=== PATIENT | female | born 1990 | race African-American/Black ===

== ENCOUNTER 2021-01-02 04:59 | Emergency (ER) | payer MEDICAID, SELFPAY ==
--- NOTE | ~2021-01-02 | CT_ITS ---
EXAMINATION: CT ABDOMEN AND PELVIS WITHOUT CONTRAST CLINICAL INFORMATION: Right flank pain COMPARISON: Renal ultrasound 04/19/2018 TECHNIQUE: Multidetector volumetric imaging was performed from the superior aspect of the liver through the pubic symphysis. Sagittal and coronal reformatted images were obtained on the technologist's workstation. No oral or intravenous contrast. This CT examination was performed using dose optimization techniques as appropriate, variously including the following: *Automated exposure control *Adjustment of mA and/or kV according to patient size (this includes techniques or standardized protocols for targeted exams where dose is matched to indication/reason for exam; i.e. extremities or head) *Use of iterative reconstruction technique DLP: 387 mGy-cm FINDINGS: LUNG BASES: The visualized lung bases are unremarkable. LIVER, GALLBLADDER, AND BILIARY TREE: The liver is normal in size, shape, and attenuation. No focal hepatic lesion or biliary ductal dilatation is present. The gallbladder is unremarkable with no evidence of radiopaque gallstones, gallbladder wall thickening, or obvious pericholecystic inflammatory changes. PANCREAS: Normal in size. Pancreatic duct within limits of normal just under 3 mm. No peripancreatic inflammatory changes. SPLEEN: Normal in size. Incidental 1 cm splenule left upper quadrant. ADRENAL GLANDS: Unremarkable. KIDNEYS AND URETERS: The kidneys are normal in size, shape, and attenuation. No hydronephrosis, hydroureter, or calculi seen. No perinephric stranding. BLADDER: Unremarkable. GASTROINTESTINAL TRACT: There is no bowel obstruction or inflammatory changes in the bowel or mesentery. There is moderate stool in the colon. The appendix is not seen with certainty. There are no inflammatory changes around the terminal ileum or cecum. No abdominal ascites or fluid collection. No pneumatosis or free air. ABDOMINAL WALL: Borderline fat-containing umbilical hernia, 1 cm. LYMPH NODES: No lymphadenopathy. VASCULAR: Prominent left gonadal vein, 0.8 cm. PELVIC VISCERA: Small amount of pelvic ascites cul-de-sac. No adnexal mass. No ovarian enlargement. OSSEOUS STRUCTURES: Bilateral L5 spondylolysis with borderline spondylolisthesis lumbosacral junction. Circumferential annulus bulging L5 disc. CT/CT abdomen pelvis wo con IMPRESSION: 1. No hydronephrosis, urinary tract calculi, or perinephric stranding. 2. No bowel obstruction or inflammatory changes in bowel. Appendix not visualized. No inflammatory changes around the terminal ileum or cecum. 3. Prominent left gonadal vein, 0.8 cm. This could be associated with pelvic congestion syndrome in the appropriate clinical setting. 4. Trace pelvic ascites. No ovarian enlargement or adnexal mass. 5. Disc bulge L5 with bilateral L5 spondylolysis and borderline spondylolisthesis.
[2021-01-02 05:31] VITALS: BP 115/63; PULSE 78; RESP 18; TEMP 36.3; O2SAT 98; BMI 24.1
[2021-01-02 05:41] LABS: Appearance Urine CLEAR; Color Urine YELLOW; Glucose Urine UA NEG (NEG); Leukocyte Esterase Urine NEG (NEG); Nitrite Urine NEG (NEG); Specific Gravity - Urine 1.025 (1.005-1.025); Urine Blood TRACE (NEG); Urine Ketones NEG (NEG); Urine Protein NEG (NEG-TRACE)
[2021-01-02 05:42] LABS: UPreg QC Valid YES; Urine Pregnancy NEGATIVE (NEGATIVE)
[2021-01-02 06:02] LABS: Bacteria Urine TRACE /LPF; Mucus Urine 3+ /LPF; RBC Urine 0-2 /HPF (0); Squamous Epithelial Cell Urine 2+ /LPF; WBC Urine 0-2 /HPF (0-4)
--- NOTE | 2021-01-02 06:40 | ED_ITS ---
HPI - Abdominal Pain General Chief Complaint: Abdominal Pain Stated Complaint: ?Kidney Stone Time Seen by Provider: 01/02/21 06:40 Source: patient Mode of arrival: ambulatory Limitations: no limitations History of Present Illness HPI narrative: patient with right flank pain, for one month told she has kidney stones on the right, yesterday she coughed and felt a pop. MD elicited complaint: abdominal pain and flank pain Pertinent past history: kidney stones Onset (ago): week(s) Pain Consistency: intermittent Location: R flank Severity: moderate Quality: cramping and sharp Radiation: R flank Migration to: RLQ Exacerbating factors: movement Relieving factors: nothing Associated symptoms: nausea Related Data Previous Rx's Medication Instructions Recorded cyclobenzaprine 10 mg PO TID #10 tab 01/02/21 naproxen [Naprosyn] 500 mg PO BID #20 tab 01/02/21 Allergies Allergy/AdvReac Type Severity Reaction Status Date / Time shrimp [SHRIMP] Allergy Unknown HIVES Unverified 03/15/20 19:34 Review of Systems Constitutional: Reports no additional constitutional complaints Eyes: Reports no additional eye complaints Denies dizziness Cardiovascular: Reports no additional cardiovascular complaints Respiratory: Reports as per HPI Gastrointestinal: Reports no additional gastrointestinal complaints Genitourinary: Reports no additional female genitourinary complaints Musculoskeletal: Reports no additional musculoskeletal complaints Skin/Breast: Denies rash Reports system reviewed and no additional complaints, except as documented, Denies dizziness and Denies Sensory deficit (Neuro) Psychiatric: Denies anxiety Physical Exam Vital Signs: Vital Signs: Last Vital Signs Temp 97.4 F 01/02/21 05:31 Pulse 62 01/02/21 07:21 Resp 16 01/02/21 07:21 BP 118/74 01/02/21 07:21 Pulse Ox 100 01/02/21 07:21 Body Mass Index 24.1 Const: General: healthy appearing Nutritional Appearance: average body habitus Orientation/consciousness: oriented to person and patient oriented x3 Limitations: no limitations HENMT: Head: Yes normal to inspection Ears: external ears normal General nose exam: Normal external nose present Mouth: Normal oral and palatal mucosa present and oropharynx normal Throat: Yes posterior oropharynx normal Eyes: General: appearance normal, both eyes and all related structures Neck: Other: supple Neck: Yes normal visual inspection Chest: Chest palpation & inspection: normal inspection of the chest Resp: Auscultation: clear to auscultation bilaterally Cardio: Jugular venous distension: no JVD Rate: regular rate Rhythm: regular rhythm Heart sounds: S1 normal heart sound present and S2 normal heart sound present GI: Inspection: Yes normal to inspection Palpation (GI): Soft to palpation, nontender and No hepatosplenomegaly present Auscultation: normal bowel sounds Back/Spine/Pelvis: Other: mild right CVAT Skin: General skin exam: no rashes or lesions noted Neuro: General: oriented to person and patient oriented x3 Cranial nerves: Yes CN's II-XII intact bilaterally Motor exam (neuro): 5/5 motor strength present throughout Sensory Exam: No Sensory deficit (Neuro) Extrem: General: Yes normal to inspection Psych: Appearance: grossly normal Course Reevaluation(s) Reevaluation #1: urine labs ar normal, no evidence of UTI, CT negative for hydro or renal colic will dc home with NSAIDS and flexeril for back pain Time: 08:27 MDM - Abdominal Pain Lab Data Result diagrams: 01/02/21 07:13 01/02/21 07:13 Labs: Lab Results 01/02/21 01/02/21 01/02/21 Range/Units 05:36 05:36 07:13 WBC 6.1 (4.8-10.8) X10*3/uL RBC 4.68 (4.20-5.50) X10*6/uL Hgb 13.3 (12.0-16.0) g/dl Hct 39.9 (37-47) % MCV 85.3 (80-98) fL MCH 28.4 (27.0-33.0) pg MCHC 33.3 (31.0-35.0) g/dl RDW 12.0 (11.0-16.0) % Plt Count 266 (160-400) X10*3/uL MPV 9.9 (9.4-12.3) fL Immature Gran % (Auto) 0.2 (0.0-0.4) % Neut % (Auto) 48.1 (45-73) % Lymph % (Auto) 32.0 (20-40) % [place] % (Auto) 10.0 (2-11) % Eos % (Auto) 9.2 H (0-4) % Baso % (Auto) 0.5 (0-2) % Lymph # (Auto) 2.0 (1.2-4.9) X10*3/uL [place] # (Auto) 0.6 (0.1-1.2) X10*3/uL Eos # (Auto) 0.6 H (0.0-0.4) X10*3/uL Baso # (Auto) 0.0 (0.0-0.2) X10*3/uL Abs Immat Gran (auto) 0.01 (0.00-0.03) X10*3/uL Absolute Neuts (auto) 2.9 (2.0-8.3) X10*3/uL Absolute Nucleated RBC 0.000 (0.0-0.012) X10*3/uL Nucleated RBC % (auto) 0.0 (0.0-0.2) /100WBC Sodium (135-145) mmol/L Potassium (3.3-5.1) mmol/L Chloride (96-108) mmol/L Carbon Dioxide (22-29) mmol/L Anion Gap (12-20) BUN (9-16) mg/dL Creatinine (0.5-1.4) mg/dL Estim Creat Clear Calc Estimated GFR Random Glucose (60-115) mg/dL Calcium (8.4-10.2) mg/dL Urine Color YELLOW Urine Appearance CLEAR Urine pH 6.0 (5.0-8.0) Ur Specific [place] 1.025 (1.005-1.025) Urine Protein NEG (NEG-TRACE) MG/DL Urine Glucose (UA) NEG (NEG) MG/DL Urine Ketones NEG (NEG) MG/DL Urine Blood TRACE (NEG) Urine Nitrite NEG (NEG) Ur Leukocyte Esterase NEG (NEG) Urine RBC 0-2 (0) /HPF Urine WBC 0-2 (0-4) /HPF Ur Squamous Epith Cells 2+ /LPF Urine Bacteria TRACE /LPF Urine Mucus 3+ /LPF Urine Test NEGATIVE (NEGATIVE) 01/02/21 Range/Units 07:13 WBC (4.8-10.8) X10*3/uL RBC (4.20-5.50) X10*6/uL Hgb (12.0-16.0) g/dl Hct (37-47) % MCV (80-98) fL MCH (27.0-33.0) pg MCHC (31.0-35.0) g/dl RDW (11.0-16.0) % Plt Count (160-400) X10*3/uL MPV (9.4-12.3) fL Immature Gran % (Auto) (0.0-0.4) % Neut % (Auto) (45-73) % Lymph % (Auto) (20-40) % [place] % (Auto) (2-11) % Eos % (Auto) (0-4) % Baso % (Auto) (0-2) % Lymph # (Auto) (1.2-4.9) X10*3/uL [place] # (Auto) (0.1-1.2) X10*3/uL Eos # (Auto) (0.0-0.4) X10*3/uL Baso # (Auto) (0.0-0.2) X10*3/uL Abs Immat Gran (auto) (0.00-0.03) X10*3/uL Absolute Neuts (auto) (2.0-8.3) X10*3/uL Absolute Nucleated RBC (0.0-0.012) X10*3/uL Nucleated RBC % (auto) (0.0-0.2) /100WBC Sodium 138 (135-145) mmol/L Potassium 4.3 (3.3-5.1) mmol/L Chloride 107 (96-108) mmol/L Carbon Dioxide 21 L (22-29) mmol/L Anion Gap 14 (12-20) BUN 11 (9-16) mg/dL Creatinine 0.69 (0.5-1.4) mg/dL Estim Creat Clear Calc 99.5 Estimated GFR > 60 Random Glucose 99 (60-115) mg/dL Calcium 9.5 (8.4-10.2) mg/dL Urine Color Urine Appearance Urine pH (5.0-8.0) Ur Specific [place] (1.005-1.025) Urine Protein (NEG-TRACE) MG/DL Urine Glucose (UA) (NEG) MG/DL Urine Ketones (NEG) MG/DL Urine Blood (NEG) Urine Nitrite (NEG) Ur Leukocyte Esterase (NEG) Urine RBC (0) /HPF Urine WBC (0-4) /HPF Ur Squamous Epith Cells /LPF Urine Bacteria /LPF Urine Mucus /LPF Urine Test (NEGATIVE) Imaging Data CT scan - abdomen: Radiologist's impression: IMPRESSION: 1. No hydronephrosis, urinary tract calculi, or perinephric stranding. 2. No bowel obstruction or inflammatory changes in bowel. Appendix not visualized. No inflammatory changes around the terminal ileum or cecum. 3. Prominent left gonadal vein, 0.8 cm. This could be associated with pelvic congestion syndrome in the appropriate clinical setting. 4. Trace pelvic ascites. No ovarian enlargement or adnexal mass. 5. Disc bulge L5 with bilateral L5 spondylolysis and borderline spondylolisthesis. Discharge Plan Discharge Clinical Impression: Back pain Qualifiers: Back pain location: low back pain Chronicity: acute Back pain laterality: right Sciatica presence: without sciatica Qualified Code(s): M54.5 - Low back pain Patient Disposition: Home, Self-Care Instructions: Acute Low Back Pain (ED) Prescriptions: New cyclobenzaprine 10 mg tablet 10 mg PO TID Qty: 10 RF: 0 naproxen [Naprosyn] 500 mg tablet 500 mg PO BID Qty: 20 RF: 0 Referrals: Nannette Weston NP [Primary Care Provider] - 1 week [facility] Social History Social History Patient Tobacco Use Status: Never used Tobacco Use of substances other than those prescribed or required for medical reasons: Yes Substance Use Type: Marijuana Advance Directives: No Advance Directives Information Provided: No Patient : No
[2021-01-02] MEDS: ondansetron HCL 4 MG/2 ML VIAL IVPUSH (07:19)
[2021-01-02] MEDS: Ketorolac Tromethamine 30 MG/ML VIAL IVPUSH (07:19)
[2021-01-02] MEDS: 0.9 % Sodium Chloride 1,000 ML 999 ML IVCONT ×2 (07:19→08:27)
[2021-01-02 07:20] LABS: MANUAL DIFF FLAG NO
[2021-01-02 07:21] VITALS: BP 118/74; PULSE 62; RESP 16; O2SAT 100
[2021-01-02 07:21] LABS: Basophils Percent Auto 0.5 % (0-2); Eosinophils Absolute Auto 0.6 X10*3/uL (0.0-0.4); Eosinophils Percent Auto 9.2 % (0-4); Hematocrit 39.9 % (37-47); Hemoglobin 13.3 g/dl (12.0-16.0); Imm Gran Abs Auto 0.01 X10*3/uL (0.00-0.03); Imm Gran Pct Auto 0.2 % (0.0-0.4); Mean Corpuscular HGB Conc 33.3 g/dl (31.0-35.0); Mean Corpuscular Hemoglobin 28.4 pg (27.0-33.0); Mean Corpuscular Volume 85.3 fL (80-98); Mean Platelet Volume 9.9 fL (9.4-12.3); Monocytes Absolute Auto 0.6 X10*3/uL (0.1-1.2); Neutrophils Absolute Auto 2.9 X10*3/uL (2.0-8.3); Neutrophils Percent Auto 48.1 % (45-73); Platelet Count 266 X10*3/uL (160-400); Red Blood Count 4.68 X10*6/uL (4.20-5.50); White Blood Count 6.1 X10*3/uL (4.8-10.8)
[2021-01-02 07:42] LABS: Anion Gap 14 (12-20); Blood Urea Nitrogen 11 mg/dL (9-16); Calcium 9.5 mg/dL (8.4-10.2); Carbon Dioxide 21 mmol/L (22-29); Chloride 107 mmol/L (96-108); Creatinine Clr Calc Pharmacy 99.5; Estimated Glomerular Filt Rate > 60; Glucose Random 99 mg/dL (60-115); Potassium 4.3 mmol/L (3.3-5.1); Sodium 138 mmol/L (135-145)
--- NOTE | 2021-01-02 08:28 | PC.NURSE ---
Pt resting quietly in bed with significant other, states decrease in pain level and appears comfortable. Second liter of NS started. Awaiting dispo
== END 2021-01-02 08:53 | disposition home or self-care (01) ==
PROVIDERS: Emergency Provider Emergency Medicine; PCP Nurse Practitioner Family
DX: M54.5 Low back pain (principal); Z87.442 Personal history of urinary calculi
CPT/HCPCS: 36415; 74176; 80048; 81001; 81025; 85025; 96361; 96374; 96375; 99284; J1885; J2405

== ENCOUNTER 2021-06-02 19:39 | Emergency (ER) | payer MEDICAID, SELFPAY ==
[2021-06-02 19:55] VITALS: BP 115/77; PULSE 110; RESP 22; TEMP 36.8; O2SAT 98; BMI 24.1
[2021-06-02 20:00] VITALS: BP 121/65; PULSE 87; RESP 20; TEMP 36.4; O2SAT 100
--- NOTE | 2021-06-02 21:37 | ED.ASTHMA ---
HPI - Asthma General Chief Complaint: Asthma Stated Complaint: Asthma Time Seen by Provider: 06/02/21 21:31 Source: patient Mode of arrival: ambulatory Limitations: no limitations History of Present Illness HPI Narrative: Patient comes to the emergency room complaining of asthma exacerbations. Patient states that her inhaler is no longer working. Patient states that she has an appointment pending with her prosthodontist/educator. Patient states that her primary care physician has her on a naproxen regimen for an intermittent lung inflammation condition. Related Data Previous Rx's Medication Instructions Recorded cyclobenzaprine 10 mg tablet 10 mg PO TID #10 tab 01/02/21 naproxen 500 mg tablet (Naprosyn) 500 mg PO BID #20 tab 01/02/21 prednisone 50 mg tablet 50 mg PO DAILY #5 tab 06/02/21 Allergies Allergy/AdvReac Type Severity Reaction Status Date / Time shrimp [SHRIMP] Allergy Unknown HIVES Unverified 03/15/20 19:34 Review of Systems Review of Systems: Constitutional : No Weight loss, No Fever, No Chills, No Night Sweats, No Fatigue, No Malaise ENT/Mouth : No Hearing loss, No Ear Pain, No Nasal Congestion, No Sinus Pain, No Hoarseness, No sore throat, No Rhinorrhea, No Swallowing Difficulty Eyes: No Eye Pain, No Swelling, No Redness, No Foreign Body, No Discharge, No Vision Changes Cardiovascular : No Chest Pain, No SOB, No Dyspnea on Exertion, No Orthopnea, No Edema, No Palpitations Respiratory : Complaining ofCough, No Sputum complaining of wheezing/dyspnea Gastrointestinal : No Nausea, No Vomiting, No Diarrhea, No Constipation, No abdominal Pain, No Hematochezia, No Melena Genitourinary : no irregular bleeding, No Dysuria, No Urinary Frequency, No Hematuria, No Urinary Incontinence, No Urgency, No Flank Pain, No Urinary Flow Changes, No Hesitancy Musculoskeletal : No joint pain, No Myalgias, No Joint Swelling Skin : No Skin Lesions, No rash Neuro : No Weakness, No Numbness, No Paresthesias, No Loss of Consciousness, No Dizziness, No Headache Psych : No Anxiety/Panic, No Depression, No SI/HI/AH/VH, No Social Issues, Heme/Lymph: No Bruising, No Bleeding,No Lymphadenopathy Endocrine : No Polyuria, No Polydipsia, No Temperature Intolerance PMFSH Past Medical History Medical History Asthma Social History Social History Alcohol intake: current Alcohol intake frequency: holidays/special occasions only Patient Tobacco Use Status: Never used Tobacco Use of substances other than those prescribed or required for medical reasons: Yes Substance Use Type: Marijuana Substance Use Frequency: Daily Advance Directives: No Advance Directives Information Provided: No Patient : No Physical Exam Vital Signs: Vital Signs: Last Vital Signs Temp 97.6 F 06/02/21 20:00 Pulse 98 06/02/21 22:04 Resp 20 06/02/21 20:00 BP 121/65 06/02/21 20:00 Pulse Ox 100 06/02/21 20:00 BMI result Body Mass Index 24.1 Const: Other: Appearance: Alert. Oriented X3. No acute distress. Well-appearing Eyes: Pupils equal, round and reactive to light. ENT: Pharynx normal. Neck: Normal inspection. Neck supple. No lymph nodes noted. No crepitus CVS: Normal heart rate and rhythm. Pulses normal. Normal S1 and S2 Respiratory: No respiratory distress. Are bilateral wheezing, good air movement, oxygen saturation 90% on room air Abdomen: Soft and nontender. No rigidity. No distention. good BS x4 Skin: Skin warm and dry. Normal skin color. Normal skin turgor. Extremities: No lower extremity edema. No Lacerations. No Rash Neuro: Oriented X 3. No motor deficit. No sensory deficit. Moving all extermities. No slurred speech. Course Course Course Narrative: After Solu-Medrol, magnesium and our long nebulization treatment, patient states that she feels much better. Patient is asymptomatic. Patient is no longer wheezing. Oxygen saturation 100% on room air. Patient states that she has enough albuterol for her admission pumps. Patient will receive 1 prescription for prednisone. Discharge Plan Discharge Clinical Impression: Asthma Qualifiers: Asthma severity: unspecified severity Asthma persistence: unspecified Asthma complication type: uncomplicated Qualified Code(s): J45.909 - Unspecified asthma, uncomplicated Patient Disposition: Home, Self-Care Instructions: Asthma (ED) Additional Instructions: Please follow-up with your primary care physician tomorrow. If you have any worsening or new symptoms, please return to the emergency room or call 911 Prescriptions: New prednisone 50 mg tablet 50 mg PO DAILY Qty: 5 RF: 0 No Action cyclobenzaprine 10 mg tablet 10 mg PO TID Qty: 10 RF: 0 naproxen [Naprosyn] 500 mg tablet 500 mg PO BID Qty: 20 RF: 0
[2021-06-02] MEDS: Magnesium Sulfate/H2O 2 GM/50 ML PIGGYBACK IV (21:45)
[2021-06-02] MEDS: methylPREDNISolone Sod Succ 125 MG/2 ML VIAL IVPUSH (21:45)
[2021-06-02] MEDS: ondansetron HCL 4 MG/2 ML VIAL IVPUSH (21:56)
--- NOTE | 2021-06-02 21:57 | PC.NURSE ---
iv inserted, pt medicated per order, rt doing updraft, vss, pt has in/ex wheezing, will continue to monitor.
[2021-06-02 22:04] VITALS: PULSE 98; O2SAT 98
[2021-06-02] MEDS: Albuterol Sulfate (0.083%) 2.5 MG/3 ML VIAL.NEB 10 MG INHALE (22:04)
[2021-06-03] VITALS: BP 122/67; PULSE 98; RESP 16; O2SAT 98
== END 2021-06-03 00:20 | disposition home or self-care (01) ==
PROVIDERS: Emergency Provider Emergency Medicine; PCP Nurse Practitioner Family
DX: J45.909 Unspecified asthma, uncomplicated (principal)
CPT/HCPCS: 94640; 94644; 96365; 96366; 96375; 99284; J2405; J2930; J3475

== ENCOUNTER 2024-04-23 22:01 | Emergency (ER) | payer OTHER, SELFPAY ==
[2024-04-23 22:05] VITALS: BP 117/80; PULSE 77; RESP 18; TEMP 36.9; O2SAT 98; BMI 20.4
--- OUTSIDE RECORDS SUMMARY | 2024-04-23 22:31 | XMS_ITS | Continuity of Care Document ---
Author Organization [facility] Address [address] [place] [address]- Care Team Providers Care Senior Marketing Manager Name Role Phone Enrico SORENSON, Nannette Tellez Primary Care Physician [phone] [place] [facility] 12/11[place]20 - 01/09/21 [facility] [address] [place] [address]- Attending Physician: Tarun BAILEY, Rajeev Hirsch Allergies, Adverse Reactions, Alerts Substance Reaction Severity Status aspirin Active Shrimp Active Immunizations Given and Recorded Vaccine Date Status Refusal Reason influenza virus vaccine, inactivated 05/16/20 Give n influenza virus vaccine, inactivated 04/11/19 Give n influenza virus vaccine, inactivated 1 05/07/18 Gi avery influenza virus vaccine, inactivated 04/22/17 Chris rded Hepatitis A Adult Vaccine 2 10/09/17 Given pneumococcal 23-valent vaccine 3 08/10/17 Given tetanus/diphtheria/pertussis, acel(Tdap) 4 05/19/17 Recorded 1Result Comment: [05/07/2018] [facility] [id number] 2Result Comment: [10/09/2017] [facility] [id number] 3Result Comment: [08/10/2017] [facility] [id number] 4Result Comment: [07/16/2017] [facility] Medications EpiPen 2-Bonifacio 0.3 mg injectable kit = 0.3 mg, Intramuscular, Once, If case of allergic emergency., # 1 each, 1 Refills, Soft Stop, 12/24/20 14:57:00 EDT, [id number], 164, cm, 12/24/20 14:35:00 EDT, Height, 58, kg, 12/11/20 5:24:00 EDT, Dry Weight Start Date: 12/24/20 Status: Ordered famotidine 40 mg oral tablet 1 tablet = 40 mg, By Mouth, Daily at bedtime, # 90 tablet, 3 Refills, Maintenance, 10/10/19 16:17:00 EDT, Tablet, [id number], 155, cm, 04/11/19 8:37:00 EDT, Height, 55.8, kg, 09/15/18 18:40:00 EDT, Dry Weight Start Date: 10/10/19 Stop Date: 10/04/20 Status: Ordered montelukast 10 mg oral tablet Refills 0, 12/05/19 13:33:00 EDT Start Date: 12/05/19 Status: Ordered ProAir HFA 90 mcg/inh inhalation aerosol with adapter 2, puffs, Inhalation, Every 6 hours, PRN, # 1 each, Refills 2, Tot. Refills 2, Maintenance, 12/01/19 13:58:00 EDT, Aerosol, Route to Pharmacy Electronically, [id number], [id number], 155, cm, 04/11/19 8:37:00 EDT, [place]... Start Date: 12/01/19 Status: Ordered triamcinolone 55 mcg/inh nasal spray 2 sprays, Nares, Both, Daily, # 10 Gm, 2 Refills, Maintenance, 12/13/20 6:09:00 EDT, [place], [id number], 2 sprays Nares, Both Daily, 164, cm, 12/07/20 18:05:00 EDT, Height, 58, kg, 12/11/20 5:24:00 EDT, Dry Weight Start Date: 12/13/20 Status: Ordered Vitamin D3 1000 intl units oral tablet 1 tablet = 1,000 International_Units, By Mouth, Daily, # 90 tablet, 3 Refills, Maintenance, 12/24/20 14:57:00 EDT, Tablet, [id number], 164, cm, 12/24/20 14:35:00 EDT, Height, 58, kg, 215:24:00 EDT, Dry Weight Start Date: 12/24/20 Status: Ordered Xyzal 5 mg oral tablet 1 tablet = 5 mg, By Mouth, Daily in PM, # 30 tablet, 5 Refills, Maintenance, 11/20/20 9:28:00 EDT, Tablet, [id number], 1 tablet By Mouth Daily in PM, 155, cm, 08/16/20 10:04:00 EST, Height Start Date: 11/20/20 Status: Ordered Problem List Condition Effective Dates Status Health Status Inform ant Adjustment disorder with anxiety(Confirmed) Active Allergies(Confirmed) Active Allergic rhinitis(Confirmed) Active Costochondritis(Confirmed) Active Patellofemoral disorder(Confirmed) Active Acid reflux(Confirmed) Active Personal history of kidney stones(Confirmed) Active Asthma, moderate(Confirmed) Active Asthma, moderate persistent( Confirmed) 1 Active Panic disorder without agoraphobia(Confirmed) Active Oral allergy syndrome(Confirmed) 2 Active Maxillary polyp of sinus(Confirmed) Active De Quervain's tenosynovitis, bilateral(Confirmed) Active Posterior tibial tendonitis(Confirmed) Active Urolithiasis(Confirmed) Active 1AINE 2uncooked apple, grimaldo Social History Social History Type Response Smoking Status Never smoker; Tobacc o user in household: No entered on: 07/16/17 Sex
--- OUTSIDE RECORDS SUMMARY | 2024-04-23 22:31 | XMS_ITS | Continuity of Care Document ---
Author Organization [facility] Address [address] [place] [address]- Care Team Providers Care Wholesale Account Manager Name Role Phone Enrico SORENSON, Nannette Tellez Primary Care Physician Encounter [facility] Date(s): 08/15/20 - 09/14/20 [facility] [address] [place], [place] [address] Attending Physician: Admtr, Todd Admitting Physician: Admtr, [id number] Referring Physician: Admtr, [id number] Allergies, Adverse Reactions, Alerts Substance Reaction Severity [...] acel(Tdap) 4 05/19/17 Recorded 1Result Comment: [05/07/2018] [facility] [id number] 2Result Comment: [10/09/2017] [facility] [id number] 3Result Comment: [08/10/2017] [facility] [id number] 4Result Comment: [07/16/2017] [facility] Medications Breo Ellipta 200 mcg-25 mcg/inh inhalation powder 0 Refills, 12/05/19 13:34:00 EDT Start Date: 12/05/19 Status: Ordered EpiPen 2-Bonifacio 0.3 mg injectable kit = 0.3 mg, Intramuscular, Once, If case of allergic emergency., # 1 each, 0 Refills, Soft Stop, 02/11/19 9:04:53 EDT Start Date: 02/11/19 Status: Ordered famotidine 40 mg oral tablet 1 tablet = 40 mg, By Mouth, Daily at bedtime, # 90 tablet, 3 Refills, Maintenance, 10/10/19 16:17:00 EDT, Tablet, [id number], 155, cm, 04/11/19 8:37:00 EDT, Height, [...] 13:58:00 EDT, Aerosol, Route to Pharmacy Electronically, [id number], [facility] #[id number], 155, cm, 04/11/19 8:37:00 EDT, [place]... Start Date: 12/01/19 Status: Ordered triamcinolone 55 mcg/inh nasal spray 2 sprays, Nares, Both, Daily, # 10 Gm, 6 Refills, Maintenance, 12/05/19 14:15:00 EDT, [place], [facility]/pharm[facility] #[id number], 2 sprays Nares, Both Daily, 155, cm, 04/11/19 8:37:00 EDT, Height, 55.8, kg, 09/15/18 18:40:00 EDT, Dry Weight Start Date: 12/05/19 Status: Ordered Vitamin D3 1000 intl units oral tablet 1 tablet = 1,000 International_Units, By Mouth, Daily, # 90 tablet, 3 Refills, Maintenance, 11/24/18 9:24:09 EDT, Tablet Start Date: 11/24/18 Status: Ordered Xyzal 5 mg oral tablet 1 tablet = 5 mg, By Mouth, Daily in PM, # 30 tablet, 5 Refills, Maintenance, 04/19/20 9:08:00 EDT, Tablet, [facility]/pharm[facility] #[id number], 1 tablet By Mouth Daily in PM, 155, cm, 04/06/20 12:20:00 EDT, Height, 55.8, kg, 09/15/18 18:40:00 EDT, Dry Weight Start Date: 04/19/20 Status: Ordered Problem List Condition Effective Dates Status Health Status Inform ant Adjustment disorder with anxiety(Confirmed) Active Allergies(Confirmed) Active Allergic rhinitis(Confirmed) Active Asthma(Confirmed) Active Costochondritis(Confirmed) Active Patellofemoral disorder(Confirmed) Active Acid reflux(Confirmed) Active Personal history of kidney stones(Confirmed) Active Panic disorder without agoraphobia(Confirmed) Active Oral allergy syndrome(Confirmed) 1 Active Maxillary polyp of sinus(Confirmed) Active De Quervain's tenosynovitis, bilateral(Confirmed) Active Posterior tibial tendonitis(Confirmed) Active 1uncooked apple, grimaldo Social History Social History Type Response Smoking Status Never smoker; Tobacc o user in household: No entered on: 07/16/17 Sex
--- OUTSIDE RECORDS SUMMARY | 2024-04-23 22:31 | XMS_ITS | Continuity of Care Document ---
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 Name Role Phone Callum Duenas DO Primary Care Physician [phone] Encounter [facility] Date(s): 09/24/23 - 10/24/23 [facility] Osvaldo Leiva Adult [address] [place] [address]- Allergies, Adverse Reactions, Alerts Substance Reaction Severity Status aspirin Active Shrimp Active Immunizations Given and Recorded Vaccine Date Status Refusal Reason influenza virus vaccine, inactivated 04/14/22 Give n influenza virus vaccine, inactivated 04/25/21 Give n influenza virus vaccine, inactivated 05/16/20 Give n influenza virus vaccine, inactivated 04/11/19 Give n influenza virus vaccine, inactivated 1 05/07/18 Gi avery influenza virus vaccine, inactivated 04/22/17 Chris rded influenza virus vaccine, inactivated 04/21/17 Chris rded SARS-CoV-2 mRNA ([id number]) vax 08/22/21 Recorded hepatitis B adult vaccine 2 02/04/21 Given Hepatitis A Adult Vaccine 3 02/04/21 Given Hepatitis A Adult Vaccine 4 10/09/17 Given SARS-CoV-2 (COVID-19) mRNA BNT-162b2 vac 01/09/21 Recorded SARS-CoV-2 (COVID-19) mRNA BNT-162b2 vac 12/19/20 Recorded pneumococcal 23-valent vaccine 5 08/10/17 Given tetanus/diphtheria/pertussis, acel(Tdap) 6 05/19/17 Recorded tetanus/diphtheria/pertussis, acel(Tdap) 04/21/17 Recorded tetanus/diphtheria/pertussis, acel(Tdap) 2/26/08 Recorded Human Papillomavirus Vaccine 04/10/08 Recorded Human Papillomavirus Vaccine 10/26/07 Recorded Human Papillomavirus Vaccine 08/24/07 Recorded Meningococcal Conjugate Vaccine 08/24/07 Recorded tetanus-diphtheria toxoids (Td) 08/26/04 Recorded Measles/Mumps/Rubella Virus Vaccine 07/25/97 Recor ded Measles/Mumps/Rubella Virus Vaccine 10/23/93 Recor ded diphtheria/tetanus/pertussis, acel(DTaP) 07/25/97 Recorded 1Result Comment: [05/07/2018] [facility] [id number] 2Result Comment: [facility]# 28121-619-98 3Result Comment: [facility]# 59825-310-59 4Result Comment: [10/09/2017] [facility] 39290-936-58 5Result Comment: [08/10/2017] [facility] 0006 [id number] 01 6Result Comment: [07/16/2017] [facility] Medications Depo-Provera Contraceptive 150 mg/mL intramuscular suspension 1 mL = 150 mg, Intramuscular, Every 3 months, bring to clinic to administer, # 1 mL, 2 Refills, Maintenance, 10/11/22 14:49:00 EDT, Suspension, [facility]/pharmacy #[id number], 164, cm, 04/16/22 9:16:00 EDT, Height, 58, kg, 12/11/20 5:24:00 EDT, Dry Weight Start Date: 10/11/22 Stop Date: 07/08/23 Status: Ordered Dupixent Pre-filled Syringe 300 mg/2 mL subcutaneous solution 0 Refills, Maintenance, 04/16/22 10:15:00 EDT, Partial fill upon patient request if the prescription is for a schedule II opioid drug. Start Date: 04/16/22 Status: Ordered EpiPen 2-Bonifacio 0.3 mg injectable kit = 0.3 mg, Intramuscular, Once, If case of allergic emergency., # 1 kit, 1 Refills, Soft Stop, 05/20/23 16:13:00 EST, [id number], 155, cm, 04/21/23 9:31:00 EDT, Height Start Date: 05/20/23 Status: Ordered famotidine 40 mg oral tablet See Instructions, TAKE 1 TABLET BY MOUTH EVERYDAY AT BEDTIME, # 90 tablet, 0 Refills, Maintenance, 06/16/23 9:19:00 EST, [facility]/pharmacy #[id number], 155, cm, 04/21/23 9:31:00 EDT, Height Start Date: 06/16/23 Status: Ordered famotidine 40 mg oral tablet 1 tablet = 40 mg, By Mouth, Daily at bedtime, # 90 tablet, 0 Refills, Maintenance, 04/14/22 14:50:00 EDT, Tablet, [facility]/pharmacy #2339, 164, cm, 04/14/22 14:05:00 EDT, Height, 58, kg, 12/11/20 5:24:00 EDT, Dry Weight Start Date: 04/14/22 Stop Date: 07/13/22 Status: Ordered levocetirizine 5 mg oral tablet 1 tablet, By Mouth, Daily in PM, # 90 tablet, 3 Refills, Maintenance, 10/17/21 14:52:00 EDT, [facility]/pharmacy #[id number], 1 tablet By Mouth Daily in PM, 164, cm, 10/17/21 14:30:00 EDT, Height, 58, kg, 12/11/20 5:24:00 EDT, Dry Weight Start Date: 10/17/21 Status: Ordered medroxyPROGESTERone 150 mg/mL intramuscular suspension = 150 mg, Intramuscular, Once, administered to left upper arm, IM, without incident lot [id number] exp 01/2024 [id number], 0 Refills, Maintenance, 01/31/22 11:17:00 EDT, Partial fill upon patient request if the prescription is for a schedule II op... Start Date: 01/31/22 Status: Ordered montelukast 10 mg oral tablet Refills 0, 12/05/19 13:33:00 EDT Start Date: 12/05/19 Status: Ordered pantoprazole 40 mg oral delayed release tablet 1 tablet = 40 mg, By Mouth, Daily, # 30 tablet, 6 Refills, Maintenance, 01/14/23 10:14:00 EDT, 155,cm, 09/02/22 17:49:00 EST, Height Start Date: 01/14/23 Status: Ordered ProAir HFA 90 mcg/inh inhalation aerosol with adapter 2, puffs, Inhalation, Every 6 hours, PRN, # 1 each, Refills 3, Tot. Refills 3, Maintenance, 10/17/21 14:52:00 EDT, Aerosol, Route to Pharmacy Electronically, [id number], [facility]/pharmacy #[id number], 164, cm, 10/17/21 14:30:00 EDT, Hei... Start Date: 10/17/21 Status: Ordered Spiriva Respimat 1.25 mcg/inh inhalation aerosol 0 Refills, Maintenance, 04/25/21 10:30:00 EDT, Partial fill upon patient request if the prescription is for a schedule II opioid drug. Start Date: 04/25/21 Status: Ordered Symbicort 160mcg/4.5mcg Inhaler Refills 0, Maintenance, 04/25/21 10:31:00 EDT Start Date: 04/25/21 Status: Ordered triamcinolone 55 mcg/inh nasal spray 2 sprays, Nares, Both, Daily, # 10 Gm, 2 Refills, Maintenance, 12/13/20 6:09:00 EDT, [place], [facility]/pharmacy #[id number], 2 sprays Nares, Both Daily, 164, cm, 12/07/20 18:05:00 EDT, Height, 58, kg, 12/11/20 5:24:00 EDT, Dry Weight Start Date: 12/13/20 Status: Ordered Ventolin 90 mcg Inhaler Inhalation, Every 6 hours, Refills 0, Maintenance, 08/28/22 10:40:00 EST Start Date: 08/28/22 Status: Ordered Vitamin D3 1000 intl units oral tablet 1 tablet = 1,000 International_Units, By Mouth, Daily, # 90 tablet, 0 Refills, Maintenance, 04/14/22 14:51:00 EDT, Tablet, [facility]/pharmacy #[id number], 164, cm, 04/14/22 14:05:00 EDT, Height, 58, kg, 215:24:00 EDT, Dry Weight Start Date: 04/14/22 Stop Date: 07/13/22 Status: Ordered Vitamin D3 50,000 intl units oral capsule 1 capsule = 1,250 mcg, By Mouth, Every week, new start 05/14/22, # 9 capsule, 0 Refills, Maintenance, 05/13/22 20:19:00 EST, Capsule, [id number], Partial fill upon patient request if the prescription is for a schedule II opioid drug., 164, cm,... Start Date: 05/13/22 Stop Date: 07/12/22 Status: Ordered Problem List Condition Confirmation Course Effective Dates Status H ealth Status Informant Adjustment disorder with anxiety Confirmed Active Allergies Confirmed Active Allergic rhinitis Confirmed Active Chest wall pain Confirmed Active Costochondritis Confirmed Active Patellofemoral disorder Confirmed Active Acid reflux Confirmed Active GERD (gastroesophageal reflux disease) Confirmed Active Personal history of kidney stones Confirmed Active Asthma, moderate persistent 1 Confirmed Active Panic disorder without agoraphobia Confirmed Active 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 De Quervain's tenosynovitis, bilateral Confirmed Active Posterior tibial tendonitis Confirmed Active Urolithiasis Confirmed Active Vitamin D deficiency Confirmed Active 1AINE 2uncooked apple, grimaldo Social History Social History Type Response Smoking Status Never smoker; Tobacc o user in household: No entered on: 07/16/17 Sex Patient Care team information Care Team Personnel Name: Callum Duenas DO Position: S Physician - Primary Care Member Role: PCP Address: Address: [address] [place] [address]- Care Team Related Persons Name: YOVANY BRICEÑO Address: home [address] [place] [id number]
--- OUTSIDE RECORDS SUMMARY | 2024-04-23 22:31 | XMS_ITS | Continuity of Care Document ---
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 Role Phone Enrico SORENSON, Nannette Tellez Primary Care Physician [phone] Encounter [facility] Date(s): 10/13/19 - 10/20/19 [facility] Adult [address] [place] [address]- [facility] Attending Physician: Not on Staff, Attending MD Allergies, Adverse Reactions, Alerts Substance Reaction Severity Status aspirin Active Shrimp Active Immunizations Given and Recorded Vaccine Date Status Refusal Reason influenza virus vaccine, inactivated 04/11/19 Give n influenza virus vaccine, inactivated 1 05/07/18 Gi avery influenza virus vaccine, inactivated 04/22/17 Chris rded Hepatitis A Adult Vaccine 2 10/09/17 Given pneumococcal 23-valent vaccine 3 08/10/17 Given tetanus/diphtheria/pertussis, acel(Tdap) 4 05/19/17 Recorded 1Result Comment: [05/07/2018] [facility] [id number] 2Result Comment: [10/09/2017] [facility] 39078-960-13 3Result Comment: [08/10/2017] [facility] 0006 [id number] 01 4Result Comment: [07/16/2017] [facility] Medications Depo-Provera Contraceptive 150 mg/mL intramuscular suspension 1 mL = 150 mg, Intramuscular, Every 3 months, Needs annual wellness visit for more refills. Pt willschedule appt today at check out. Admin 1 mL IM left deltoid, [facility] [id number], Exp 04/2021, Lot [id number] Jo. Pt tolerated well., # 1 mL,... Start Date: 07/28/19 Status: Ordered EpiPen 2-Bonifacio 0.3 mg injectable kit = 0.3 mg, Intramuscular, Once, If case of allergic emergency., # 1 each, 0 Refills, Soft Stop, 02/11/19 9:04:53 EDT Start Date: 02/11/19 Status: Ordered famotidine 40 mg oral tablet 1 tablet = 40 mg, By Mouth, Daily at bedtime, # 90 tablet, 3 Refills, Maintenance, 10/10/19 16:17:00 EDT, Tablet, [facility]/pharmacy #[id number], 155, cm, 04/11/19 8:37:00 EDT, Height, 55.8, kg, 09/15/18 18:40:00 EDT, Dry Weight Start Date: 10/10/19 Stop Date: 10/04/20 Status: Ordered metroNIDAZOLE 0.75% topical gel 1 application, Topically, Daily at bedtime, # 45 Gm, 0 Refills, Maintenance, 10/12/19 15:29:00 EDT,[place], [facility]/pharmacy #[id number], 1 application Topically Daily at bedtime,x7 days, 155, cm, 04/11/19 8:37:00 EDT, Height, 55.8, kg, 09/15/18 18:40:00 EDT, Dry... Start Date: 10/12/19 Stop Date: 10/19/19 Status: Ordered NuLYTELY with Flavor Packs oral powder for reconstitution See Instructions, as directed, # 1 each, 0 Refills, Maintenance, 12/24/18 10:59:00 EDT, as directed Start Date: 12/24/18 Status: Ordered ProAir HFA 90 mcg/inh inhalation aerosol with adapter 2, puffs, Inhalation, Every 6 hours, PRN, # 1 each, Refills 2, Tot. Refills 2, Maintenance, 11/24/18 9:10:44 EDT, Aerosol, Route to Pharmacy Electronically, [id number], [facility]/pharmacy #[id number] Start Date: 11/24/18 Status: Ordered Suprep Bowel Prep Kit oral liquid 177 mL, By Mouth, Once, Take the first 6 oz bottle the evening before colonoscopy, and the second 6oz bottle the morning of colonoscopy., # 354 mL, 0 Refills, Soft Stop, 12/28/18 8:28:19 EDT, 177 mLBy Mouth Once,Instr:Take the first 6 oz bottle the... Start Date: 12/28/18 Status: Ordered Symbicort 160mcg/4.5mcg Inhaler 2, puffs, Inhalation, 2 times a day, rinse mouth and throat after use, # 1 each, Refills 1, Tot. Refills 1, Maintenance, 11/30/18 14:03:02 EDT, Aerosol, Route to Pharmacy Electronically, [id number], [facility]/pharmacy #[id number] Start Date: 11/30/18 Status: Ordered triamcinolone 55 mcg/inh nasal spray 2 sprays, Nares, Both, Daily, # 10 Gm, 6 Refills, Maintenance, 02/21/19 13:16:11 EDT, [place], 2 sprays Nares, Both Daily Start Date: 02/21/19 Status: Ordered Vitamin D3 1000 intl units oral tablet 1 tablet = 1,000 International_Units, By Mouth, Daily, # 90 tablet, 3 Refills, Maintenance, 11/24/18 9:24:09 EDT, Tablet Start Date: 11/24/18 Status: Ordered ZyrTEC 10 mg oral tablet 1 tablet = 10 mg, By Mouth, Daily, # 90 tablet, 3 Refills, Maintenance, 07/28/19 10:09:00 EST, Tablet, [facility]/pharmacy #2339, 155, cm, 04/11/19 8:37:00 EDT, Height, 55.8, kg, 09/15/18 18:40:00 EDT, Dry Weight Start Date: 07/28/19 Status: Ordered Problem List Condition Effective Dates Status Health Status Inform ant Adjustment disorder with anxiety(Confirmed) Active Asthma(Confirmed) Active Costochondritis(Confirmed) Active Patellofemoral disorder(Confirmed) Active Acid reflux(Confirmed) Active Personal history of kidney stones(Confirmed) Active Panic disorder without agoraphobia(Confirmed) Active Maxillary polyp of sinus(Confirmed) Active De Quervain's tenosynovitis, bilateral(Confirmed) Active Posterior tibial tendonitis(Confirmed) Active Social History Social History Type Response Smoking Status Never smoker; Tobacc o user in household: No entered on: 07/16/17 Sex
--- OUTSIDE RECORDS SUMMARY | 2024-04-23 22:31 | XMS_ITS | Continuity of Care Document ---
Author Organization [facility] Address [address] [place] [address]- Care Team Providers Care Meeting Planner Name Role Phone Enrico SORENSON, Nannette Primary Care Physician [phone] Encounter [facility] Date(s): 01/29/22 - 05/04/22 [facility] [address] [place] [address]- Attending Physician: Nannette Weston NP Allergies, Adverse Reactions, Alerts Substance Reaction Severity [...] influenza virus vaccine, inactivated 04/22/17 Chris rded hepatitis B adult vaccine 2 02/04/21 Given Hepatitis A Adult Vaccine 3 02/04/21 Given Hepatitis A Adult Vaccine 4 10/09/17 Given pneumococcal 23-valent vaccine 5 08/10/17 Given tetanus/diphtheria/pertussis, acel(Tdap) 6 05/19/17 Recorded 1Result Comment: [05/07/2018] [facility][note 2] [id number] 2Result Comment: [facility]# 30264-915-54 3Result Comment: [facility]# 16607-354-77 4Result Comment: [10/09/2017] [facility] [id number] 5Result Comment: [08/10/2017] [facility][note 2] 0006 [id number] 01 6Result Comment: [07/16/2017] [facility] Medications Depo-Provera Contraceptive = 150 mg, Intramuscular, Once, Right Deltoid, 0 Refills, Maintenance, 10/30/21 10:51:00 EDT, Partial fill upon patient request if the prescription is for a schedule II opioid drug. Start Date: 10/30/21 Status: Ordered Depo-Provera Contraceptive 150 mg/mL intramuscular suspension 1 mL = 150 mg, Intramuscular, Every 3 months, for 90 days, bring to clinic to administer, # 1 mL, 0Refills, Hard Stop 10/11/22 14:49:00 EDT, 07/13/22 14:49:00 EST, Suspension Start Date: 07/13/22 Stop Date: 10/11/22 Status: Ordered Depo-Provera Contraceptive 150 mg/mL intramuscular suspension 1 mL = 150 mg, Intramuscular, Every 3 months, bring to clinic to administer, # 1 mL, 2 Refills, Maintenance, 10/11/22 14:49:00 EDT, Suspension, [facility]/pharmacy #2339, 164, cm, 04/16/22 9:16:00 EDT, Height, 58, kg, 12/11/20 5:24:00 EDT, Dry Weight Start Date: 10/11/22 Stop Date: 07/08/23 Status: Ordered Depo-Provera Contraceptive 150 mg/mL intramuscular suspension 1 mL = 150 mg, Intramuscular, Every 3 months, for 90 days, please fill , bring to clinic to administer, # 1 mL, 0 Refills, Hard Stop 07/13/22 14:49:00 EST, 04/14/22 14:49:00 EDT, Suspension, [facility]/pharmacy #2339, 164, cm, 04/14/22 14:05:00 EDT, Height,... Start Date: 04/14/22 Stop Date: 07/13/22 Status: Ordered Dupixent Pre-filled Syringe 300 mg/2 mL subcutaneous solution 0 Refills, Maintenance, 04/16/22 10:15:00 EDT, Partial fill upon patient request if the prescription is for a schedule II opioid drug. Start Date: 04/16/22 Status: Ordered EpiPen 2-Bonifacio 0.3 mg injectable kit = 0.3 mg, Intramuscular, Once, If case of allergic emergency., # 1 each, 1 Refills, Soft Stop, 10/17/21 14:53:00 EDT, [facility]/pharmacy #2339, 164, cm, 10/17/21 14:30:00 EDT, Height, 58, kg, 12/11/20 5:24:00 EDT, Dry Weight Start Date: 10/17/21 Status: Ordered famotidine 40 mg oral tablet 1 tablet = 40 mg, By Mouth, Daily at bedtime, # 90 tablet, 0 Refills, Maintenance, 04/14/22 14:50:00 EDT, Tablet, [facility]/pharmacy #2339, 164, cm, 04/14/22 14:05:00 EDT, Height, 58, kg, 12/11/20 5:24:00 EDT, Dry Weight Start Date: 04/14/22 Stop Date: 07/13/22 Status: Ordered levocetirizine 5 mg oral tablet 1 tablet, By Mouth, Daily in PM, # 90 tablet, 3 Refills, Maintenance, 10/17/21 14:52:00 EDT, [facility]/pharmacy #2339, 1 tablet By Mouth Daily in PM, 164, cm, 10/17/21 14:30:00 EDT, Height, 58, kg, 12/11/20 5:24:00 EDT, Dry Weight Start Date: 10/17/21 Status: Ordered medroxyPROGESTERone 150 mg/mL intramuscular suspension 1 mL = 150 mg, Intramuscular, Every 3 months, given 04/16/2022 1 ml Right deltoid, # 1 mL, 0 Refills, Maintenance, 04/16/22 10:22:00 EDT, Suspension, Partial fill upon patient request if the prescription is for a schedule II opioid drug. Start Date: 04/16/22 Status: Ordered medroxyPROGESTERone 150 mg/mL intramuscular suspension = 150 mg, Intramuscular, Once, administered to right upper arm without incident, 0 Refills, Maintenance, 07/29/21 11:11:00 EST, Partial fill upon patient request if the prescription is for a scheduleII opioid drug. Start Date: 07/29/21 Stop Date: 10/27/21 Status: Ordered medroxyPROGESTERone 150 mg/mL intramuscular suspension = 150 mg, Intramuscular, Once, administered to left upper arm, IM, without incident lot [id number] exp 01/2024 [id number], 0 Refills, Maintenance, 01/31/22 11:17:00 EDT, Partial [...] 14:52:00 EDT, Aerosol, Route to Pharmacy Electronically, [id number], [facility]/pharmacy #2339, 164, cm, 10/17/21 14:30:00 EDT, [...] Gm, 2 Refills, Maintenance, 12/13/20 6:09:00 EDT, [place], [facility]/pharmacy #2339, 2 sprays Nares, Both Daily, 164, cm, 12/07/20 18:05:00 EDT, Height, 58, kg, 12/11/20 5:24:00 EDT, Dry Weight Start Date: 12/13/20 Status: Ordered Vitamin D3 1000 intl units oral tablet 1 tablet = 1,000 International_Units, By Mouth, Daily, # 90 tablet, 0 Refills, Maintenance, 04/14/22 14:51:00 EDT, Tablet, [facility]/pharmacy #2339, 164, cm, 04/14/22 14:05:00 EDT, Height, 58, kg, 06/15/215:24:00 EDT, Dry Weight Start Date: 04/14/22 Stop Date: 07/13/22 Status: Ordered Problem List Condition Confirmation Course Effective Dates Status H ealth Status Informant Adjustment disorder with anxiety Confirmed Active Allergies Confirmed Active Allergic rhinitis Confirmed Active Costochondritis Confirmed Active Patellofemoral disorder [...] on: 07/16/17 Sex Patient Care team information Personnel Name: Nannette Weston NP Address: Address: [address] [place] [address]
--- OUTSIDE RECORDS SUMMARY | 2024-04-23 22:31 | XMS_ITS | Continuity of Care Document ---
Author Organization 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 Adult [address] [place] [address]- Attending Physician: Teto BAILEY, Anthony Noyola Allergies, Adverse Reactions, Alerts Substance Reaction Severity [...] acel(Tdap) 4 05/19/17 Recorded 1Result Comment: [05/07/2018] [facility] [id number] 2Result Comment: [10/09/2017] [facility] [id number] 3Result Comment: [08/10/2017] [facility] 0006 [id number] 01 4Result Comment: [07/16/2017] [facility] Medications Breo Ellipta 200 mcg-25 mcg/inh inhalation [...] 3 Refills, Maintenance, 10/10/19 16:17:00 EDT, Tablet, [facility]/pharmacy #2339, 155, cm, 04/11/19 8:37:00 EDT, Height, [...] 13:58:00 EDT, Aerosol, Route to Pharmacy Electronically, [id number], [facility]/pharmacy #2339, 155, cm, 04/11/19 8:37:00 EDT, [place]... Start Date: 12/01/19 Status: Ordered triamcinolone 55 mcg/inh nasal spray 2 sprays, Nares, Both, Daily, # 10 Gm, 6 Refills, Maintenance, 12/05/19 14:15:00 EDT, [place], [facility]/pharmacy #2339, 2 sprays Nares, Both Daily, 155, [...] 5 Refills, Maintenance, 04/19/20 9:08:00 EDT, Tablet, [id number], 1 tablet By [...] Posterior tibial tendonitis(Confirmed) Active 1uncooked apple, grimaldo Vital Signs Most recent to oldest [Reference Range]: 1 Height 155 cm (08/16/20 10:04 AM) Social History Social History Type Response Smoking Status Never smoker; Tobacc o user in household: No entered on: 07/16/17 Sex
--- OUTSIDE RECORDS SUMMARY | 2024-04-23 22:31 | XMS_ITS | Continuity of Care Document ---
Author Organization [facility] Address [address] [place] [address]- Care Team Providers Care Family Welfare Social Work Professor Name Role Phone Callum Duenas DO Primary Care Physician Encounter [facility] Date(s): 04/21/23 - 04/28/23 [facility] [address] [place] [address]- Encounter Diagnosis Chest wall pain(Discharge Diagnosis) - 04/21/23 Attending Physician: Callum Duenas DO Allergies, Adverse Reactions, Alerts Substance Reaction Severity [...] vaccine, inactivated 04/21/17 Chris rded SARS-CoV-2 mRNA (nlzikzi-kuyq-sqere) vax 08/22/21 Recorded hepatitis B adult vaccine 2 02/04/21 Given Hepatitis A Adult Vaccine 3 02/04/21 Given Hepatitis A Adult Vaccine 4 10/09/17 Given SARS-CoV-2 (COVID-19) mRNA BNT-162b2 vac 01/09/21 Recorded SARS-CoV-2 (COVID-19) mRNA BNT-162b2 vac 12/19/20 Recorded pneumococcal 23-valent vaccine 5 08/10/17 Given tetanus/diphtheria/pertussis, acel(Tdap) 6 05/19/17 Recorded tetanus/diphtheria/pertussis, acel(Tdap) 04/21/17 Recorded tetanus/diphtheria/pertussis, acel(Tdap) 08/24/07 Recorded Human Papillomavirus Vaccine 04/10/08 Recorded Human Papillomavirus Vaccine 10/26/07 Recorded Human Papillomavirus Vaccine 08/24/07 Recorded Meningococcal Conjugate Vaccine 08/24/07 Recorded tetanus-diphtheria toxoids (Td) 08/26/04 Recorded Measles/Mumps/Rubella Virus Vaccine 07/25/97 Recor ded Measles/Mumps/Rubella Virus Vaccine 10/23/93 Recor ded diphtheria/tetanus/pertussis, acel(DTaP) 07/25/97 Recorded 1Result Comment: [05/07/2018] [facility] [id number] 2Result Comment: [facility]# [id number] 3Result Comment: [facility]# [id number] 4Result Comment: [10/09/2017] [facility] 44824-852-07 5Result Comment: [08/10/2017] [facility] [phone] 01 6Result Comment: [07/16/2017] [facility] Medications Depo-Provera Contraceptive 150 mg/mL intramuscular suspension 1 mL = 150 mg, Intramuscular, Every 3 months, bring to clinic to administer, # 1 mL, 2 Refills, Maintenance, 10/11/22 14:49:00 EDT, [place], [facility]/pharmacy #[id number], 164, cm, 04/16/22 9:16:00 EDT, Height, [...] 1 Refills, Soft Stop, 10/17/21 14:53:00 EDT, [id number], 164, cm, 10/17/21 14:30:00 EDT, Height, 58, kg, 12/11/20 5:24:00 EDT, Dry Weight Start Date: 10/17/21 Status: Ordered famotidine 40 mg oral tablet 1 tablet = 40 mg, By Mouth, Daily at bedtime, # 90 tablet, 0 Refills, Maintenance, 04/14/22 14:50:00 EDT, Tablet, [facility]/pharmacy #[id number], 164, cm, 04/14/22 14:05:00 EDT, Height, 58, kg, 12/11/20 5:24:00 EDT, Dry Weight Start Date: 04/14/22 Stop Date: 07/13/22 Status: Ordered famotidine 40 mg oral tablet See Instructions, TAKE 1 TABLET BY MOUTH EVERYDAY AT BEDTIME, # 90 tablet, 0 Refills, Maintenance, 03/16/23 8:38:00 EDT, [facility] STORE [id number], 155, cm, 09/02/22 17:49:00 EST, Height Start Date: 03/16/23 Status: Ordered levocetirizine 5 mg oral tablet 1 tablet, By Mouth, Daily in PM, # 90 tablet, 3 Refills, Maintenance, 10/17/21 14:52:00 EDT, [facility]/pharmacy #2339, 1 tablet By Mouth Daily in PM, 164, cm, 10/17/21 14:30:00 EDT, Height, 58, kg, 12/11/20 5:24:00 EDT, Dry Weight Start Date: 10/17/21 Status: Ordered medroxyPROGESTERone 150 mg/mL intramuscular suspension = 150 mg, Intramuscular, Once, administered to left upper arm, IM, without incident lot [id number] exp 01/2024 [id number], 0 Refills, Maintenance, 01/31/22 11:17:00 EDT, Partial [...] 14:52:00 EDT, Aerosol, Route to Pharmacy Electronically, [id number], [facility]/pharmacy #2339, 164, cm, 10/17/21 14:30:00 EDT, Hei... [...] Gm, 2 Refills, Maintenance, 12/13/20 6:09:00 EDT, [place], [facility]/pharmacy #2339, 2 sprays Nares, Both Daily, 164, [...] 0 Refills, Maintenance, 04/14/22 14:51:00 EDT, Tablet, [facility]/pharmacy #2339, 164, cm, 04/14/22 14:05:00 EDT, Height, 58, kg, 06/15/215:24:00 EDT, Dry Weight Start Date: 04/14/22 Stop Date: 07/13/22 Status: Ordered Vitamin D3 50,000 intl units oral capsule 1 capsule = 1,250 mcg, By Mouth, Every week, new start 05/14/22, # 9 capsule, 0 Refills, Maintenance, 05/13/22 20:19:00 EST, Capsule, [id number], Partial fill upon patient request if the [...] deficiency Confirmed Active 1AINE 2uncooked apple, grimaldo Diagnosis Diagnosis Type Effective Dates Health Status Cl inical Service Informant Chest wall pain Discharge Diagnosis 04/21/23 Vital Signs Most recent to oldest [Reference Range]: 1 Height 155 cm (04/21/23 9:31 AM) Weight 52.3 kg (04/21/23 9:31 AM) Oxygen Saturation [94-100 %] 100 % (04/21/23 9:31 AM) Pulse Rate [55-90 bpm] 71 bpm (04/21/23 9:31 AM) Body Mass Index [18.5-24.99 kg/m2] 21.77 kg/m2 (04/21/23 9:31 AM) Blood Pressure [90-138/55-84 mm Hg] 107/ 69mm Hg (04/21/23 9:31 AM) Mode of Delivery (Oxygen) Room air (04/21/23 9:31 AM) Blood pressure sites Arm, right (04/21/23 9:31 AM) Weight Obtained Via Standing scale (04/21/23 9:31 AM) Social History Social History Type Response Smoking Status Never smoker; Tobacc o user in household: No entered on: 07/16/17 Sex Note * Judy Crowley: PERFORM, SIGN, VERIFY Event Display: Patient Education/Instruction Authored Date: [id number] [facility] *[facility] Clinical Summary Name WARNER ASH Age 32 Years 1990 PCP Callum Duenas DO PCP Visit Date 04/21/2023 09:09:00 Additional Instructions: Scheduled Appointments?? Future Appointments ?[facility] ?[address]??[place],??[place],??[address] ?Phone:??[phone]?Fax:??-- ?Appt. Date:??01/18/2024?10:00 AM ?Scheduled Provider:??[facility] US Rm 5 Follow-Up Instructions ?? Diagnosis Other chest pain Medications: Please continue your medications until treatment is completed or stopped by your provider. Discuss any questions related to medications with your provider. Medications to Continue with No Changes These medications were not printed or sent to your pharmacy Albuterol (ProAir HFA 90 mcg/inh inhalation aerosol with adapter) 2 puff(s) Inhalation every 6 hours as needed for wheezing. Refills: 3. Next Dose: Albuterol (Ventolin 90 mcg Inhaler) Inhalation every 6 hours. Next Dose: Budesonide-Formoterol (Symbicort 160mcg/4.5mcg Inhaler) Next Dose: Cholecalciferol (Vitamin D3 1000 intl units oral tablet) 1 tab(s) Oral Daily for 90 Days. Refills: 0. Next Dose: Cholecalciferol (Vitamin D3 50,000 intl units oral capsule) 1 capsule Oral every week for 60 Days. new start 05/14/22. Refills: 0. Next Dose: dupilumab (Dupixent Pre-filled Syringe 300 mg/2 mL subcutaneous solution) Next Dose: EPINEPHrine (EpiPen 2-Bonifacio 0.3 mg injectable kit) 0.3 Milligram Intramuscular once. If case of allergic emergency.. Refills: 1. Next Dose: Famotidine (famotidine 40 mg oral tablet) TAKE 1 TABLET BY MOUTH EVERYDAY AT BEDTIME. Refills: 0. Next Dose: Famotidine (famotidine 40 mg oral tablet) 1 tab(s) Oral Daily at Bedtime for 90 Days. Refills: 0. Next Dose: levocetirizine (levocetirizine 5 mg oral tablet) 1 tab(s) Oral Daily in PM. Refills: 3. Next Dose: MedroxyPROGESTERone (Depo-Provera Contraceptive 150 mg/mL intramuscular suspension) 1 Milliliter Intramuscular Every 3 months for 90 Days. bring to clinic to administer. Refills: 2. Next Dose: MedroxyPROGESTERone (medroxyPROGESTERone 150 mg/mL intramuscular suspension) 150 Milligram Intramuscular once. administered to left upper arm, IM, without incident lot [id number] exp 01/2024 [id number]. Next Dose: Montelukast (montelukast 10 mg oral tablet) Next Dose: Pantoprazole (pantoprazole 40 mg oral delayed release tablet) 1 tab(s) Oral Daily. Refills: 6. Next Dose: Tiotropium (Spiriva Respimat 1.25 mcg/inh inhalation aerosol) Next Dose: Triamcinolone Nasal (triamcinolone 55 mcg/inh nasal spray) 2 spray(s) Nares, Both Daily. Refills: 2. Next Dose: Allergy Info:?? Shrimp; aspirin Medications Given This Visit Future Orders ?No future orders Vital Signs Height 155 cm Weight 52.3 kg BMI 21.77 kg/m2 Blood Pressure 107 mm Hg/69 mm Hg Temperature Pulse Rate 71 bpm Respiratory Rate 02 Sat Mode of Delivery 100 %/Room air You can now view a summary of your hospital visit from the comfort of your home through a free online portal called [employer] is a website that allows you to securely view your medical information including discharge summary, medications and follow-up visits. ??You can alsosend a secure electronic message to your doctor???s office to request appointments, renew medications or just ask a question. You can enroll at [email or web address] or register during your next office visit. Disclaimer:?? The information provided is of a general nature and is intended to be used in conjunction with the recommendations and advice of your health care practitioner. ??Every effort has been made to ensure that the information provided is accurate and complete at the time it is provided to you however, as your needs change, or, as new ??information becomes available, different or additional instructions may be required. If you have questions, please consult with your primary care provider or pharmacist, as appropriate. ??This information is not intended to serve as substitution for assessment and evaluation by a qualified health care provider. If you do not have a primary care provider, you may find a [facility] provider by calling [facility] [employer] at [phone]. [facility], in keeping with [facility] guidance, no longer requires face masks for staff, patientsor visitors in most situations. Similar to time spent indoors at other locations, there is the chance that you were exposed to respiratory viruses during your time with us (such as flu or COVID-19).? If you develop symptoms concerning for a viral respiratory infection, please seek testing (and treatment if indicated) from your medical provider or home test kit. For information about the plan of care including goals and instructions for your diagnosis, please see the patient education orders section of this document. Patient Education Materials?? The content of this educational material or handout may have been modified, supplemented, or adapted from its original content and format to support your individualized medical care. Patient Care team information Care Team Personnel Name: Callum Duenas DO Position: [facility] Physician - Primary Care Member Role: PCP Address: Address: [address] [place] [address]- [place] Care Team Related Persons Name: YOVANY BRICEÑO Address: home [address] [place] [address] [address] [place] [id number]
--- OUTSIDE RECORDS SUMMARY | 2024-04-23 22:31 | XMS_ITS | Continuity of Care Document ---
Author Organization [facility] Address [address] [place] [address]- Care Team Providers Care Quality Assurance Coach Name Role Phone Enrico SORENSON, Nannette Tellez Primary Care Physician [phone] Encounter [facility] Date(s): 12/07/20 - 12/07/[address] [address]- Discharge Disposition: A-D/C Walkout Attending Physician: Not on Staff, Attending MD Admitting Physician: Not on Staff, Admitting MD Referring Physician: Not on Staff, Referring MD Allergies, Adverse Reactions, Alerts Substance Reaction [...] Comment: [05/07/2018] [facility] [id number] 2Result Comment: [10/09/2017] [facility] [id number] 3Result Comment: [08/10/2017] [facility] [id number] 01 4Result Comment: [07/16/2017] [facility] Medications Breo Ellipta 200 mcg-25 mcg/inh [...] 3 Refills, Maintenance, 10/10/19 16:17:00 EDT, Tablet, [facility]/pharmacy #2339, 155, cm, 04/11/19 8:37:00 EDT, [...] 13:58:00 EDT, Aerosol, Route to Pharmacy Electronically, [id number], [facility]/pharmacy #2339, 155, cm, 04/11/19 8:37:00 EDT, [place]... Start Date: 12/01/19 Status: Ordered triamcinolone 55 mcg/inh nasal spray 2 sprays, Nares, Both, Daily, # 10 Gm, 6 Refills, Maintenance, 12/05/19 14:15:00 EDT, [place], [facility]/pharmacy #2339, 2 sprays Nares, Both Daily, 155, [...] Active Urolithiasis(Confirmed) Active 1AINE 2uncooked apple, grimaldo Vital Signs Most recent to oldest [Reference Range]: 1 2 Height 164 cm (12/07/20 6:05 PM) 164 cm (12/07/20 4:55 PM) Weight 58.8 kg (12/07/20 6:05 PM) 58.8 kg (12/07/20 4:55 PM) Oxygen Saturation [94-100 %] 97 % (12/07/20 4:55 PM) 100 % (12/07/20 4:52 PM) Pulse Rate [55-90 bpm] 70 bpm (12/07/20 4:55 PM) 78 bpm (12/07/20 4:52 PM) Body Mass Index [18.5-24.99] 21.86 (12/07/20 4:55 PM) Blood Pressure [90-138/55-84 mm Hg] 108/ 53mm Hg (12/07/20 4:55 PM) Temperature [96.8-100.4 DegF] 98.9 DegF (12/07/20 4:55 PM) Mode of Delivery (Oxygen) Room air (12/07/20 4:55 PM) Blood pressure sites Arm, right (12/07/20 4:55 PM) Temperature Route Oral (12/07/20 4:55 PM) Dry Weight 58.8 kg (12/07/20 6:05 PM) 58.8 kg (12/07/20 4:55 PM) Weight Obtained Via Standing scale (12/07/20 4:55 PM) Social History Social History Type Response Smoking Status Never smoker; Tobacc o user in household: No entered on: 07/16/17 Sex
--- OUTSIDE RECORDS SUMMARY | 2024-04-23 22:31 | XMS_ITS | Continuity of Care Document ---
Author Organization [facility] Address [address] [place] [address]- Care Team Providers Care Chemical Preparer Name Role Phone Enrico SORENSON, Nannette Tellez Primary Care Physician Encounter [facility] Date(s): 01/30/21 - 03/01/21 [facility] Adult [address] [place] [address]- Allergies, Adverse Reactions, Alerts Substance Reaction Severity Status aspirin Active Shrimp Active Immunizations Given and Recorded Vaccine Date Status Refusal Reason hepatitis B adult vaccine 1 02/04/21 Given Hepatitis A Adult Vaccine 2 02/04/21 Given Hepatitis A Adult Vaccine 3 10/09/17 Given influenza virus vaccine, inactivated 05/16/20 Give n influenza virus vaccine, inactivated 04/11/19 Give n influenza virus vaccine, inactivated 4 05/07/18 Gi avery influenza virus vaccine, inactivated 04/22/17 Chris rded pneumococcal 23-valent vaccine 5 08/10/17 Given tetanus/diphtheria/pertussis, acel(Tdap) 6 05/19/17 Recorded 1Result Comment: [facility]# [id number] 2Result Comment: [facility]# [id number] 3Result Comment: [10/09/2017] [facility] [id number] 4Result Comment: [05/07/2018] [facility] [address]-52 5Result Comment: [08/10/2017] [facility] [phone] 01 6Result Comment: [07/16/2017] [facility] Medications EpiPen 2-Bonifacio 0.3 mg injectable kit = 0.3 mg, Intramuscular, Once, If case of allergic emergency., # 1 each, 1 Refills, Soft Stop, 12/24/20 14:57:00 EDT, [facility]/pharmacy #2339, 164, cm, 12/24/20 14:35:00 EDT, Height, 58, kg, 12/11/20 5:24:00 EDT, Dry Weight Start Date: 12/24/20 Status: Ordered famotidine 40 mg oral tablet 1 tablet = 40 mg, By Mouth, Daily at bedtime, # 90 tablet, 3 Refills, Maintenance, 10/10/19 16:17:00 EDT, Tablet, [facility]/pharmacy #2339, 155, cm, 04/11/19 8:37:00 [...] 13:58:00 EDT, Aerosol, Route to Pharmacy Electronically, [id number], [facility]/pharmacy #2339, 155, cm, 04/11/19 8:37:00 EDT, [place]... Start Date: 12/01/19 Status: Ordered triamcinolone 55 mcg/inh nasal spray 2 sprays, Nares, Both, Daily, # 10 Gm, 2 Refills, Maintenance, 12/13/20 6:09:00 EDT, [place], [facility]/pharmacy #2339, 2 sprays Nares, Both Daily, 164, cm, 12/07/20 18:05:00 EDT, Height, 58, kg, 12/11/20 5:24:00 EDT, Dry Weight Start Date: 12/13/20 Status: Ordered Vitamin D3 1000 intl units oral tablet 1 tablet = 1,000 International_Units, By Mouth, Daily, # 90 tablet, 3 Refills, Maintenance, 12/24/20 14:57:00 EDT, Tablet, [facility]/pharmacy #2339, 164, cm, 12/24/20 14:35:00 EDT, Height, 58, kg, 215:24:00 EDT, Dry Weight Start Date: 12/24/20 Status: Ordered Xyzal 5 mg oral tablet 1 tablet = 5 mg, By Mouth, Daily in PM, # 30 tablet, 5 Refills, Maintenance, 11/20/20 9:28:00 EDT, Tablet, [facility]/pharmacy #2339, 1 tablet By Mouth Daily [...]
--- OUTSIDE RECORDS SUMMARY | 2024-04-23 22:31 | XMS_ITS | Continuity of Care Document ---
Author Organization [facility] Address [address] [place] [address]- Care Team Providers Care Instructor Decorating Name Role Phone Enrico SORENSON, Nannette Tellez Primary Care Physician [phone] [facility] Date[facility]s): 12/11/20 - 01/11/21 [facility] Adult [address] [place] [address]- Attending Physician: Not on Staff, Attending MD [...] acel(Tdap) 4 05/19/17 Recorded 1Result Comment: [05/07/2018] [facility] [id number] 2Result Comment: [10/09/2017] [facility] 38322-401-86 3Result Comment: [08/10/2017] [facility] 0006 [id number] 01 4Result Comment: [07/16/2017] [facility] Medications EpiPen 2-Bonifacio 0.3 mg injectable [...] 3 Refills, Maintenance, 10/10/19 16:17:00 EDT, Tablet, [facility]/pharmacy #2339, 155, cm, 04/11/19 8:37:00 EDT, [...] 13:58:00 EDT, Aerosol, Route to Pharmacy Electronically, [id number], [facility]/pharmacy #2339, 155, cm, 04/11/19 8:37:00 EDT, [place]... Start Date: 12/01/19 Status: Ordered triamcinolone 55 mcg/inh nasal spray 2 sprays, Nares, Both, Daily, # 10 Gm, 2 Refills, Maintenance, 12/13/20 6:09:00 EDT, [place], [facility]/pharmacy #2339, 2 sprays Nares, Both Daily, 164, cm, 12/07/20 18:05:00 EDT, Height, 58, kg, 12/11/20 5:24:00 EDT, Dry Weight Start Date: 12/13/20 Status: Ordered Vitamin D3 1000 intl units oral tablet 1 tablet = 1,000 International_Units, By Mouth, Daily, # 90 tablet, 3 Refills, Maintenance, 12/24/20 14:57:00 EDT, Tablet, [facility]/pharmacy #2339, 164, cm, 12/24/20 14:35:00 EDT, [...]
--- OUTSIDE RECORDS SUMMARY | 2024-04-23 22:31 | XMS_ITS | Continuity of Care Document ---
Author Organization [facility] Address [address] [place] [address]- Care Team Providers Care Solar Photovoltaic Systems Engineer Name Role Phone Enrico SORENSON, Nannette Tellez Primary Care Physician Encounter [facility] Date(s): 12/11/20 - 12/11/[address] [address]- Discharge Disposition: A-D/C Walkout Attending Physician: Not [...] acel(Tdap) 4 05/19/17 Recorded 1Result Comment: [05/07/2018] [facility] [id number] 2Result Comment: [10/09/2017] [facility] [id number] 3Result Comment: [08/10/2017] [facility] [id number] 01 4Result Comment: [07/16/2017] [facility] Medications Breo Ellipta 200 mcg-25 mcg/inh [...] 3 Refills, Maintenance, 10/10/19 16:17:00 EDT, Tablet, [facility]/pharmacy #2339, 155, cm, 04/11/19 8:37:00 [...] 13:58:00 EDT, Aerosol, Route to Pharmacy Electronically, [id number], [facility]/pharmacy #2339, 155, cm, 04/11/19 8:37:00 EDT, [place]... Start Date: 12/01/19 Status: Ordered triamcinolone 55 mcg/inh nasal spray 2 sprays, Nares, Both, Daily, # 10 Gm, 6 Refills, Maintenance, 12/05/19 14:15:00 EDT, [place], [facility]/pharmacy #2339, 2 sprays Nares, Both [...] Most recent to oldest [Reference Range]: 1 Weight 58 kg (12/11/20 5:24 AM) Oxygen Saturation [94-100 %] 98 % (12/11/20 5:24 AM) Pulse Rate [55-90 bpm] 86 bpm (12/11/20 5:24 AM) Blood Pressure [90-138/55-84 mm Hg] 118/ 67mm Hg (12/11/20 5:24 AM) Respiratory Rate [16-30 br/min] 20 br/mi n (12/11/20 5:24 AM) Temperature [96.8-100.4 DegF] 98.3 DegF (12/11/20 5:24 AM) Mode of Delivery (Oxygen) Room air (12/11/20 5:24 AM) Blood pressure sites Arm, right (12/11/20 5:24 AM) Temperature Route Oral (12/11/20 5:24 AM) Dry Weight 58 kg (12/11/20 5:24 AM) Social History Social History Type Response Smoking Status Never smoker; Tobacc o user in household: No entered on: 07/16/17 Sex
--- OUTSIDE RECORDS SUMMARY | 2024-04-23 22:31 | XMS_ITS | Continuity of Care Document ---
Author Organization [facility] Address [address] [place] [address]- Care Team Providers Care Chemistry Account Manager Name Role Phone Nannette Weston NP Primary Care Physician [phone] Encounter [facility] Date(s): 02/04/21 - 05/05/21 [facility] [address] [place] [address]- Attending Physician: Nannette Weston NP Allergies, Adverse Reactions, Alerts Substance Reaction Severity Status aspirin Active Shrimp Active Immunizations Given and Recorded Vaccine Date Status Refusal Reason influenza virus vaccine, inactivated 04/25/21 Give n [...] acel(Tdap) 6 05/19/17 Recorded 1Result Comment: [05/07/2018] [facility] [id number] 2Result Comment: [facility]# [id number] 3Result Comment: [facility]# [id number] 4Result Comment: [10/09/2017] [facility] 46644-793-92 5Result Comment: [08/10/2017] [facility] [id number] 01 6Result Comment: [07/16/2017] [facility] Medications Depo-Provera Contraceptive 150 mg/mL intramuscular suspension 1 mL = 150 mg, Intramuscular, Every 3 months, [facility] 97271-140-05 lot [id number] exp 08/2023 administered to left deltoid without incident, # 1 mL, 6 Refills, Maintenance, 04/29/21 12:12:00 EDT, Suspension Start Date: 04/29/21 Status: Ordered EpiPen 2-Bonifacio 0.3 mg injectable kit = 0.3 mg, Intramuscular, Once, If case of allergic emergency., # 1 each, 1 Refills, Soft Stop, 12/24/20 14:57:00 EDT, [facility]/pharmacy #[id number], 164, cm, 12/24/20 14:35:00 EDT, Height, 58, kg, 12/11/20 5:24:00 EDT, Dry Weight Start Date: 12/24/20 Status: Ordered famotidine 40 mg oral tablet 1 tablet = 40 mg, By Mouth, Daily at bedtime, # 90 tablet, 3 Refills, Maintenance, 10/10/19 16:17:00 EDT, Tablet, [facility]/pharmacy #2339, 155, cm, 04/11/19 8:37:00 EDT, Height, [...] 13:58:00 EDT, Aerosol, Route to Pharmacy Electronically, [id number], [facility]/pharmacy #2339, 155, cm, 04/11/19 8:37:00 EDT, [place]... Start Date: 12/01/19 Status: Ordered Spiriva Respimat 1.25 mcg/inh inhalation [...] Gm, 2 Refills, Maintenance, 12/13/20 6:09:00 EDT, [place], [facility]/pharmacy #2339, 2 sprays Nares, Both Daily, 164, cm, 12/07/20 18:05:00 EDT, Height, 58, kg, 12/11/20 5:24:00 EDT, Dry Weight Start Date: 12/13/20 Status: Ordered Vitamin D3 1000 intl units oral tablet 1 tablet = 1,000 International_Units, By Mouth, Daily, # 90 tablet, 3 Refills, Maintenance, 04/25/21 10:47:00 EDT, Tablet, [facility]/pharmacy #2339, 164, cm, 04/25/21 10:29:00 EDT, Height, 58, kg, 215:24:00 EDT, Dry Weight Start Date: 04/25/21 Status: Ordered Xyzal 5 mg oral tablet 1 tablet = 5 mg, By Mouth, Daily in PM, # 30 tablet, 5 Refills, Maintenance, 11/20/20 9:28:00 EDT, Tablet, [facility]/pharmacy #2339, 1 tablet By Mouth Daily in PM, 155, cm, 08/16/20 10:04:00 EST, Height Start Date: 11/20/20 Status: Ordered Problem List Condition Effective Dates Status Health Status Inform ant Adjustment disorder with anxiety(Confirmed) Active Allergies(Confirmed) Active Allergic rhinitis(Confirmed) Active Costochondritis(Confirmed) Active Patellofemoral disorder(Confirmed) Active Acid reflux(Confirmed) Active Personal history of kidney stones(Confirmed) Active Asthma, moderate persistent( Confirmed) 1 Active [...]
--- OUTSIDE RECORDS SUMMARY | 2024-04-23 22:31 | XMS_ITS | Continuity of Care Document ---
Author Organization [facility] Address [address] [place] [address]- Care Team Providers Care Donkey Ride Operator Name Role Phone Callum Duenas DO Primary Care Physician Encounter [facility] Date(s): 07/08/23 - 11/18/[address] [address]- Encounter Diagnosis Other chest pain(Final) - Discharge Disposition: A-D/C Home Attending Physician: Callum Duenas DO Admitting Physician: Not on Staff, Admitting MD [...] vaccine, inactivated 04/21/17 Chris rded SARS-CoV-2 mRNA (whwdurz-ihlj-trkoo) vax 08/22/21 Recorded hepatitis B adult vaccine [...] diphtheria/tetanus/pertussis, acel(DTaP) 07/25/97 Recorded 1Result Comment: [05/07/2018] [facility] [id number] 2Result Comment: [facility]# 73773-913-30 3Result Comment: [facility]# [id number] 4Result Comment: [10/09/2017] [facility] 15093-638-27 5Result Comment: [08/10/2017] [facility] 0006 [id number] 01 6Result Comment: [07/16/2017] [facility] Medications Depo-Provera Contraceptive 150 mg/mL intramuscular suspension 1 mL = 150 mg, Intramuscular, Every 3 months, bring to clinic to administer, # 1 mL, 2 Refills, Maintenance, 10/11/22 14:49:00 EDT, Suspension, [facility]/pharmacy #[id number], 164, cm, 04/16/22 9:16:00 EDT, Height, [...] 05/20/23 16:13:00 EST, [facility], 155, cm, 10/24/23 9:31:00 EDT, Height Start Date: 05/20/23 Status: Ordered famotidine 40 mg oral tablet See Instructions, TAKE 1 TABLET BY MOUTH EVERYDAY AT BEDTIME, # 90 tablet, 0 Refills, Maintenance, 06/16/23 9:19:00 EST, [facility]/pharmacy #2339, 155, cm, 04/21/23 9:31:00 EDT, Height Start Date: 06/16/23 Status: Ordered famotidine 40 mg oral tablet 1 tablet = 40 mg, By Mouth, Daily at bedtime, # 90 tablet, 0 Refills, Maintenance, 04/14/22 14:50:00 EDT, Tablet, [facility]/pharmacy #2339, 164, cm, 04/14/22 14:05:00 EDT, Height, 58, kg, 12/11/20 5:24:00 EDT, Dry Weight Start Date: 04/14/22 Stop Date: 07/13/22 Status: Ordered levocetirizine 5 mg oral tablet 1 tablet, By Mouth, Daily in PM, # 90 tablet, 3 Refills, Maintenance, 10/17/21 14:52:00 EDT, [facility]/pharmacy #2339, 1 tablet By Mouth Daily in PM, 164, cm, 10/17/21 14:30:00 EDT, Height, 58, kg, 12/11/20 5:24:00 EDT, Dry Weight Start Date: 10/17/21 Status: Ordered medroxyPROGESTERone 150 mg/mL intramuscular suspension = 150 mg, Intramuscular, Once, administered to left upper arm, IM, without incident lot [id number] exp 01/2024 [id number], 0 Refills, Maintenance, 01/31/22 11:17:00 EDT, Partial [...] 14:52:00 EDT, Aerosol, Route to Pharmacy Electronically, [id number], [facility]/pharmacy #2339, 164, cm, 10/17/21 14:30:00 EDT, Hei... [...] Gm, 2 Refills, Maintenance, 12/13/20 6:09:00 EDT, [place], [facility]/pharmacy #2339, 2 sprays Nares, Both [...] 0 Refills, Maintenance, 04/14/22 14:51:00 EDT, Tablet, [facility]/pharmacy #2339, 164, cm, 04/14/22 14:05:00 EDT, Height, 58, kg, 215:24:00 EDT, Dry Weight Start Date: 04/14/22 Stop Date: 07/13/22 Status: Ordered Vitamin D3 50,000 intl units oral capsule 1 capsule = 1,250 mcg, By Mouth, Every week, new start 05/14/22, # 9 capsule, 0 Refills, Maintenance, 05/13/22 20:19:00 EST, Capsule, [id number], Partial fill upon patient request if the [...] team information Care Team Personnel Name: Callum Duneas DO Position: S Physician - Primary Care Member Role: PCP Address: Address: [address] [place] [address]- Care Team Related Persons Name: YOVANY BRICEÑO Address: home [address] [address]
--- OUTSIDE RECORDS SUMMARY | 2024-04-23 22:31 | XMS_ITS | Continuity of Care Document ---
Author Organization [facility] Address [address] [place] [address]- Care Team Providers Care Inspector Screen Printing Name Role Phone Callum Duenas DO Primary Care Physician [phone] Encounter [facility] [place] Date(s): 01/13/23 - 02/12/23 [facility] [address] [place] [address]- [place] Allergies, Adverse Reactions, Alerts Substance Reaction Severity [...] vaccine, inactivated 04/21/17 Chris rded SARS-CoV-2 mRNA (hhxdjzi-qtwb-apvpi) vax 08/22/21 Recorded hepatitis B adult vaccine [...] diphtheria/tetanus/pertussis, acel(DTaP) 07/25/97 Recorded 1Result Comment: [05/07/2018] [facility] [id number] 2Result Comment: [facility]# [id number] 3Result Comment: [facility]# [id number] 4Result Comment: [10/09/2017] [facility] 01415-609-50 5Result Comment: [08/10/2017] [facility] 0006 4943 01 6Result Comment: [07/16/2017] [facility] Medications Depo-Provera Contraceptive 150 mg/mL intramuscular suspension 1 mL = 150 mg, Intramuscular, Every 3 months, bring to clinic to administer, # 1 mL, 2 Refills, Maintenance, 10/11/22 14:49:00 EDT, Suspension, [facility]/pharmacy #2339, 164, cm, 04/16/22 9:16:00 EDT, Height, 58, kg, 12/11/20 5:24:00 EDT, Dry Weight Start Date: 10/11/22 Stop Date: 07/08/23 Status: Ordered Dupixent Pre-filled Syringe 300 mg/2 mL subcutaneous solution 0 Refills, Maintenance, 04/16/22 10:15:00 EDT, Partial fill upon patient request if the prescription is for a schedule II opioid drug. Start Date: 04/16/22 Status: Ordered EpiPen 2-Bonfiacio 0.3 mg injectable kit = 0.3 mg, Intramuscular, Once, If case of allergic emergency., # 1 each, 1 Refills, Soft Stop, 10/17/21 14:53:00 EDT, [facility]/pharmacy #2339, 164, cm, 10/17/21 14:30:00 EDT, Height, 58, kg, 12/11/20 5:24:00 EDT, Dry Weight Start Date: 10/17/21 Status: Ordered famotidine 40 mg oral tablet 1 tablet = 40 mg, By Mouth, Daily at bedtime, # 90 tablet, 0 Refills, Maintenance, 04/14/22 14:50:00 EDT, Tablet, [facility]/pharmacy #2339, 164, cm, 04/14/22 14:05:00 EDT, Height, 58, kg, 12/11/20 5:24:00 EDT, Dry Weight Start Date: 04/14/22 Stop Date: 07/13/22 Status: Ordered levocetirizine 5 mg oral tablet 1 tablet, By Mouth, Daily in PM, # 90 tablet, 3 Refills, Maintenance, 10/17/21 14:52:00 EDT, [facility]/pharmacy #2339, 1 tablet By Mouth Daily in PM, 164, cm, 10/17/21 14:30:00 EDT, Height, 58, kg, 12/11/20 5:24:00 EDT, Dry Weight Start Date: 10/17/21 Status: Ordered medroxyPROGESTERone 150 mg/mL intramuscular suspension = 150 mg, Intramuscular, Once, administered to left upper arm, IM, without incident lot [id number] exp 01/2024 [id number], 0 Refills, Maintenance, 01/31/22 11:17:00 EDT, Partial [...] 14:52:00 EDT, [place]eros[place], Route to Pharmacy Electronically, [id number], [facility]/pharmacy #2339, 164, cm, 10/17/21 [...] Gm, 2 Refills, Maintenance, 12/13/20 6:09:00 EDT, [place], [facility]/pharmacy #2339, 2 sprays Nares, [...] 0 Refills, Maintenance, 04/14/22 14:51:00 EDT, Tablet, [facility]/pharmacy #2339, 164, cm, 04/14/22 [...] Primary Care Member Role: PCP Address: Address: [address] [place] [address]- Care Team Related Persons Name: YOVANY BRICEÑO Address: home [address] [address]
--- OUTSIDE RECORDS SUMMARY | 2024-04-23 22:31 | XMS_ITS | Continuity of Care Document ---
Author Organization [facility] Address [address] [place] [address]- Care Team Providers Care Registrar Assistant Name Role Phone Nannette Weston NP Primary Care Physician [phone] Encounter [facility] Date(s): 10/31/21 - 02/28/22 [facility] [address] [place] [address]- Attending Physician: Nannette Weston NP Allergies, Adverse [...] acel(Tdap) 6 05/19/17 Recorded 1Result Comment: [05/07/2018] [facility] [id number] 2Result Comment: [facility]# [id number] 3Result Comment: [facility]# [id number] 4Result Comment: [10/09/2017] [facility] 72773-168-78 5Result Comment: [08/10/2017] [facility] 0006 4943 01 6Result Comment: [07/16/2017] [facility] Medications Depo-Provera Contraceptive = 150 mg, Intramuscular, Once, Right Deltoid, 0 Refills, Maintenance, 10/30/21 10:51:00 EDT, Partial fill upon patient request if the prescription is for a schedule II opioid drug. Start Date: 10/30/21 Status: Ordered Depo-Provera Contraceptive 150 mg/mL intramuscular suspension 1 mL = 150 mg, Intramuscular, Every 3 months, [facility] [id number] lot [id number] exp 08/2023 administered to left deltoid without incident, # 1 mL, 6 Refills, Maintenance, 07/23/21 16:38:00 EST, Suspension,[facility]/pharmacy #2339, 164, cm, 04/25/21 10:29:00 E... Start Date: 07/23/21 Status: Ordered EpiPen 2-Bonifacio 0.3 mg injectable [...] 3 Refills, Maintenance, 10/10/19 16:17:00 EDT, Tablet, [facility], 155, cm, 04/11/19 8:37:00 EDT, Height, 55.8, kg, 09/15/18 18:40:00 EDT, Dry Weight Start Date: 10/10/19 Stop Date: 10/04/20 Status: Ordered levocetirizine 5 mg oral tablet 1 tablet, By Mouth, Daily in PM, # 90 tablet, 3 Refills, Maintenance, 10/17/21 14:52:00 EDT, [facility], 1 tablet By Mouth Daily [...] left upper arm, IM, without incident lot [id number] exp 01/2024 [id number], 0 Refills, Maintenance, 01/31/22 11:17:00 EDT, Partial [...] 14:52:00 EDT, Aeros[place], Route to Pharmacy Electronically, [id number], [facility]/pharmacy #2339, 164, cm, 10/17/21 [...] Gm, 2 Refills, Maintenance, 12/13/20 6:09:00 EDT, [place], [facility]/pharmacy #2339, 2 sprays Nares, Both Daily, 164, cm, 12/07/20 18:05:00 EDT, Height, 58, kg, 12/11/20 5:24:00 EDT, Dry Weight Start Date: 12/13/20 Status: Ordered Vitamin D3 1000 intl units oral tablet 1 tablet = 1,000 International_Units, By Mouth, Daily, # 90 tablet, 3 Refills, Maintenance, 10/17/21 14:53:00 EDT, Tablet, [facility], 164, cm, 10/17/21 14:30:00 EDT, Height, 58, kg, 215:24:00 EDT, Dry Weight Start Date: 10/17/21 Status: Ordered Problem List Condition Effective Dates [...] in household: No entered on: 07/16/17 Sex Care Team Personnel Name: Nannette Weston NP Address: [address]
--- OUTSIDE RECORDS SUMMARY | 2024-04-23 22:31 | XMS_ITS | Continuity of Care Document ---
Author Organization [facility] Address [address] [place] [address]- Care Team Providers Care Diaper Folder Name Role Phone Enrico SORENSON, Nannette Tellez Primary Care Physician [facility] Date(s): 04/05/21 - 05/05/21 [facility] [address] [place] [address]- Attending Physician: AdmTodd qiu Admitting Physician: AdmtrTodd Referring Physician: AdmtrTodd Allergies, Adverse Reactions, Alerts Substance Reaction Severity [...] acel(Tdap) 6 05/19/17 Recorded 1Result Comment: [05/07/2018] [facility] [id number] 2Result Comment: [facility]# [id number] 3Result Comment: [facility]# [id number] 4Result Comment: [10/09/2017] [facility] 26552-390-37 5Result Comment: [08/10/2017] [facility] 0006 [id number] 01 6Result Comment: [07/16/2017] [facility] Medications Depo-Provera Contraceptive 150 mg/mL intramuscular suspension 1 mL = 150 mg, Intramuscular, Every 3 months, [facility] 15345-210-09 lot [id number] exp 08/2023 administered to left deltoid without incident, # 1 mL, 6 Refills, Maintenance, 04/29/21 12:12:00 EDT, Suspension Start Date: 04/29/21 Status: Ordered EpiPen 2-Bonifacio 0.3 mg injectable kit = 0.3 mg, Intramuscular, Once, If case of allergic emergency., # 1 each, 1 Refills, Soft Stop, 12/24/20 14:57:00 EDT, [facility]/pharmacy #2339, 164, cm, 12/24/20 14:35:00 EDT, Height, 58, kg, 12/11/20 5:24:00 EDT, Dry Weight Start Date: 12/24/20 Status: Ordered famotidine 40 mg oral tablet 1 tablet = 40 mg, By Mouth, Daily at bedtime, # 90 tablet, 3 Refills, Maintenance, 10/10/19 16:17:00 EDT, Tablet, [facility]/pharmacy #2339, 155, cm, 04/11/19 8:37:00 [...] 13:58:00 EDT, Aerosol, Route to Pharmacy Electronically, [id number], [facility]/pharmacy #2339, 155, cm, 04/11/19 8:37:00 [...] Gm, 2 Refills, Maintenance, 12/13/20 6:09:00 EDT, [place], [facility]/pharmacy #2339, 2 sprays Nares, Both Daily, 164, cm, 12/07/20 18:05:00 EDT, Height, 58, kg, 12/11/20 5:24:00 EDT, Dry Weight Start Date: 12/13/20 Status: Ordered Vitamin D3 1000 intl units oral tablet 1 tablet = 1,000 International_Units, By Mouth, Daily, # 90 tablet, 3 Refills, Maintenance, 04/25/21 10:47:00 EDT, Tablet, [facility]/pharmacy #2339, 164, cm, 04/25/21 10:29:00 EDT, Height, 58, kg, 12/11/215:24:00 EDT, Dry Weight Start Date: 04/25/21 Status: Ordered Xyzal 5 mg oral tablet 1 tablet = 5 mg, By Mouth, Daily in PM, # 30 tablet, 5 Refills, Maintenance, 11/20/20 9:28:00 EDT, Tablet, [facility]/pharmacy #2339, 1 tablet By [...]
--- OUTSIDE RECORDS SUMMARY | 2024-04-23 22:31 | XMS_ITS | Continuity of Care Document ---
Author Organization [facility] Address [address] [place] [address]- Care Team Providers Care Do All Operator Name Role Phone Callum Duenas DO Primary Care Physician [phone] Encounter [facility] Date(s): 06/15/23 - 07/15/23 [facility] [address] [place] [address]- Allergies, Adverse Reactions, Alerts Substance Reaction Severity [...] vaccine, inactivated 04/21/17 Chris rded SARS-CoV-2 mRNA (rllrfen-ftqf-sqetk) vax 08/22/21 Recorded hepatitis B adult vaccine [...] acel(DTaP) 07/25/97 Recorded 1Result Comment: [05/07/2018] [facility] [id number] 2Result Comment: [facility]# [id number] 3Result Comment: [facility]# [id number] 4Result Comment: [10/09/2017] [facility] 91304-572-61 5Result Comment: [08/10/2017] [facility] 0006 4943 01 6Result Comment: [07/16/2017] [facility] Medications Depo-Provera Contraceptive 150 mg/mL intramuscular suspension 1 mL = 150 mg, Intramuscular, Every 3 months, bring to clinic to administer, # 1 mL, 2 Refills, Maintenance, 10/11/22 14:49:00 EDT, [place], [facility]/pharmacy #2339, 164, cm, 04/16/22 9:16:00 EDT, Height, [...] 1 Refills, Soft Stop, 05/20/23 16:13:00 EST, [facility]/pharmacy #2339, 155, cm, 04/21/23 9:31:00 EDT, Height Start Date: 05/20/23 Status: Ordered famotidine 40 mg oral tablet See Instructions, TAKE 1 TABLET BY MOUTH EVERYDAY AT BEDTIME, # 90 tablet, 0 Refills, Maintenance, 06/16/23 9:19:00 EST, [facility]/pharmacy #2339, 155, cm, 04/21/23 9:31:00 EDT, Height Start Date: 06/16/23 Status: Ordered famotidine 40 mg oral tablet 1 tablet = 40 mg, By Mouth, Daily at bedtime, # 90 tablet, 0 Refills, Maintenance, 04/14/22 14:50:00 EDT, Tablet, [facility]/pharmacy #2339, 164, cm, 04/14/22 14:05:00 EDT, Height, 58, kg, 12/11/20 5:24:00 EDT, Dry Weight Start Date: 04/14/22 Stop Date: 07/13/22 Status: Ordered levocetirizine 5 mg oral tablet 1 tablet, By Mouth, Daily in PM, # 90 tablet, 3 Refills, Maintenance, 10/17/21 14:52:00 EDT, [facility]/pharmacy #2339, 1 tablet By Mouth Daily in PM, 164, cm, 10/17/21 14:30:00 EDT, Height, 58, kg, 12/11/20 5:24:00 EDT, Dry Weight Start Date: 10/17/21 Status: Ordered medroxyPROGESTERone 150 mg/mL intramuscular suspension = 150 mg, Intramuscular, Once, administered to left upper arm, IM, without incident lot [id number] exp 01/2024 [id number], 0 Refills, Maintenance, 01/31/22 11:17:00 EDT, Partial [...] 14:52:00 EDT, Aerosol, Route to Pharmacy Electronically, [id number], [facility]/pharmacy #2339, 164, cm, 10/17/21 14:30:00 EDT, Hei... [...] Gm, 2 Refills, Maintenance, 12/13/20 6:09:00 EDT, [place], [facility]/pharmacy #2339, 2 sprays Nares, Both Daily, 164, [...] 0 Refills, Maintenance, 04/14/22 14:51:00 EDT, Tablet, [facility]/pharmacy #2339, 164, cm, 04/14/22 14:05:00 EDT, Height, 58, kg, :24:00 EDT, Dry Weight Start Date: 04/14/22 Stop Date: 07/13/22 Status: Ordered Vitamin D3 50,000 intl units oral capsule 1 capsule = 1,250 mcg, By Mouth, Every week, new start 05/14/22, # 9 capsule, 0 Refills, Maintenance, 05/13/22 20:19:00 EST, Capsule, [facility], Partial fill upon patient request if the [...] Team Personnel Name: Callum Duenas DO Position: [facility] Physician - Primary Care Member Role: PCP Address: Address: [address] [place] [address]- Care Team Related Persons Name: YOVANY BRICEÑO Address: home [address] [facility] [address] [place] [address]
--- OUTSIDE RECORDS SUMMARY | 2024-04-23 22:31 | XMS_ITS | Continuity of Care Document ---
Author Organization [facility] Address [address] [place] [address]- Care Team Providers Care Ict Development Manager Name Role Phone Enrico SORENSON, Nannette Geronimo Primary Care Physician Encounter [facility] Date(s): 04/16/22 - 04/23/22 [facility] [address] [place] [address]- Encounter Diagnosis Encounter for Depo-Provera contraception(Discharge Diagnosis) - 04/16/22 Chest wall pain(Discharge Diagnosis) - 04/16/22 Attending Physician: Noy Suero NP Allergies, Adverse Reactions, Alerts Substance Reaction [...] acel(Tdap) 6 05/19/17 Recorded 1Result Comment: [05/07/2018] [facility] [id number] 2Result Comment: [facility]# [id number] 3Result Comment: [facility]# [id number] 4Result Comment: [10/09/2017] [facility] [phone] 5Result Comment: [08/10/2017] [facility] [phone] 01 6Result Comment: [07/16/2017] [facility] Medications Depo-Provera Contraceptive = 150 mg, [...] 2 Refills, Maintenance, 10/11/22 14:49:00 EDT, Suspension, [id number], 164, cm, 04/16/22 9:16:00 EDT, Height, 58, kg, 12/11/20 5:24:00 EDT, Dry Weight Start Date: 10/11/22 Stop Date: 07/08/23 Status: Ordered Depo-Provera Contraceptive 150 mg/mL intramuscular suspension 1 mL = 150 mg, Intramuscular, Every 3 months, for 90 days, please fill , bring to clinic to administer, # 1 mL, 0 Refills, Hard Stop 07/13/22 14:49:00 EST, 04/14/22 14:49:00 EDT, Suspension, [id number], 164, cm, 04/14/22 14:05:00 EDT, Height,... [...] 1 Refills, Soft Stop, 10/17/21 14:53:00 EDT, [facility]/pharmacy #[id number], 164, cm, 10/17/21 14:30:00 EDT, Height, 58, kg, 12/11/20 5:24:00 EDT, Dry Weight Start Date: 10/17/21 Status: Ordered famotidine 40 mg oral tablet 1 tablet = 40 mg, By Mouth, Daily at bedtime, # 90 tablet, 0 Refills, Maintenance, 04/14/22 14:50:00 EDT, Tablet, [facility]/pharmacy #2339, 164, cm, 04/14/22 14:05:00 EDT, Height, 58, kg, 12/11/20 5:24:00 EDT, Dry Weight Start Date: 04/14/22 Stop Date: 07/13/22 Status: Ordered levocetirizine 5 mg oral tablet 1 tablet, By Mouth, Daily in PM, # 90 tablet, 3 Refills, Maintenance, 10/17/21 14:52:00 EDT, [facility]/pharmacy #[id number], 1 tablet By Mouth Daily [...] left upper arm, IM, without incident lot [id number] exp 01/2024 [id number], 0 Refills, Maintenance, 01/31/22 11:17:00 EDT, Partial [...] 14:52:00 EDT, Aerosol, Route to Pharmacy Electronically, [id number], [facility]/pharmacy #[id number], 164, cm, 10/17/21 14:30:00 EDT, [...] Gm, 2 Refills, Maintenance, 12/13/20 6:09:00 EDT, [place], [facility]/pharmacy #2339, 2 sprays Nares, Both Daily, 164, cm, 12/07/20 18:05:00 EDT, Height, 58, kg, 12/11/20 5:24:00 EDT, Dry Weight Start Date: 12/13/20 Status: Ordered Vitamin D3 1000 intl units oral tablet 1 tablet = 1,000 International_Units, By Mouth, Daily, # 90 tablet, 0 Refills, Maintenance, 04/14/22 14:51:00 EDT, Tablet, [id number], 164, cm, 04/14/22 14:05:00 EDT, Height, [...] Diagnosis Diagnosis Type Effective Dates Health Status Clinical Service Informant Encounter for Depo-Provera contraception Discharge Diagnosis 04/16/22 Chest wall pain Discharge Diagnosis 04/16/22 Vital Signs Most recent to oldest [Reference Range]: 1 Height 164 cm (04/16/22 9:16 AM) Weight 58.0 kg (04/16/22 9:16 AM) Oxygen Saturation [94-100 %] 100 % (04/16/22 9:16 AM) Pulse Rate [55-90 bpm] 82 bpm (04/16/22 9:16 AM) Body Mass Index [18.5-24.99 kg/m2] 21.56 kg/m2 (04/16/22 9:16 AM) Blood Pressure [90-138/55-84 mm Hg] 136/ 71mm Hg (04/16/22 9:16 AM) Blood pressure sites Arm, left (04/16/22 9:16 AM) Social History Social History Type Response Smoking Status Never smoker; Tobacc o user in household: No entered on: 07/16/17 Sex Patient Care team information Personnel Name: Nannette Weston NP Address: Address: [address] [place] [address]
--- OUTSIDE RECORDS SUMMARY | 2024-04-23 22:31 | XMS_ITS | Continuity of Care Document ---
Author Organization [facility] Address [address] [place] [address]- Care Team Providers Care Scout Sniper Name Role Phone Enrico SORENSON, Nannette Tellez Primary Care Physician [phone] Encounter [facility] Date(s): 07/23/21 - 08/22/21 [facility] [address] [place] [address]- Allergies, Adverse Reactions, Alerts Substance Reaction Severity [...] acel(Tdap) 6 05/19/17 Recorded 1Result Comment: [05/07/2018] [facility] [id number] 2Result Comment: [facility]# [id number] 3Result Comment: [facility]# [phone] 4Result Comment: [10/09/2017] [facility] [phone] 5Result Comment: [08/10/2017] [facility] [phone] 01 6Result Comment: [07/16/2017] [facility] Medications Depo-Provera Contraceptive 150 mg/mL intramuscular suspension 1 mL = 150 mg, Intramuscular, Every 3 months, [facility] [id number] lot [id number] exp 08/2023 administered to left deltoid without incident, # 1 mL, 6 Refills, Maintenance, 07/23/21 16:38:00 EST, Suspension,[facility]/pharmacy #[id number], 164, cm, 04/25/21 10:29:00 E... Start Date: 07/23/21 Status: Ordered EpiPen 2-Bonifacio 0.3 mg injectable kit = 0.3 mg, Intramuscular, Once, If case of allergic emergency., # 1 each, 1 Refills, Soft Stop, 12/24/20 14:57:00 EDT, [facility]/pharmacy #2339, 164, cm, 12/24/20 14:35:00 EDT, Height, 58, kg, 12/11/20 5:24:00 EDT, Dry Weight Start Date: 12/24/20 Status: Ordered famotidine 40 mg oral tablet 1 tablet = 40 mg, By Mouth, Daily at bedtime, # 90 tablet, 3 Refills, Maintenance, 10/10/19 16:17:00 EDT, Tablet, [facility]/pharmacy #2339, 155, cm, 04/11/19 8:37:00 EDT, Height, 55.8, kg, 09/15/18 18:40:00 EDT, Dry Weight Start Date: 10/10/19 Stop Date: 10/04/20 Status: Ordered levocetirizine 5 mg oral tablet 1 tablet, By Mouth, Daily in PM, # 90 tablet, 3 Refills, Maintenance, 07/19/21 12:44:00 EST, [facility]/pharmacy #2339, 1 tablet By Mouth Daily in PM, 164, cm, 04/25/21 10:29:00 EDT, Height, 58, kg, 12/11/20 5:24:00 EDT, Dry Weight Start Date: 07/19/21 Status: Ordered medroxyPROGESTERone 150 mg/mL intramuscular suspension = 150 mg, Intramuscular, Once, administered to right upper arm without incident, 0 Refills, Maintenance, 07/29/21 11:11:00 EST, Partial fill upon patient request if the prescription is for a scheduleII opioid drug. Start Date: 07/29/21 Stop Date: 10/27/21 Status: Ordered montelukast 10 mg oral tablet Refills 0, 12/05/19 13:33:00 EDT Start Date: 12/05/19 Status: Ordered ProAir HFA 90 mcg/inh inhalation aerosol with adapter 2, puffs, Inhalation, Every 6 hours, PRN, # 1 each, Refills 2, Tot. Refills 2, Maintenance, 12/01/19 13:58:00 EDT, Aerosol, Route to Pharmacy Electronically, [id number], [facility]/pharmacy #2339, 155, cm, 04/11/19 8:37:00 EDT, [place]... [...] Gm, 2 Refills, Maintenance, 12/13/20 6:09:00 EDT, [place], [facility]/pharmacy #2339, 2 sprays Nares, Both Daily, 164, cm, 12/07/20 18:05:00 EDT, Height, 58, kg, 12/11/20 5:24:00 EDT, Dry Weight Start Date: 12/13/20 Status: Ordered Vitamin D3 1000 intl units oral tablet 1 tablet = 1,000 International_Units, By Mouth, Daily, # 90 tablet, 3 Refills, Maintenance, 04/25/21 10:47:00 EDT, Tablet, [facility]/pharmacy #2339, 164, cm, 04/25/21 10:29:00 EDT, Height, [...]
--- OUTSIDE RECORDS SUMMARY | 2024-04-23 22:31 | XMS_ITS | Continuity of Care Document ---
Author Organization [facility] Address [address] [place] [address]- Care Team Providers Care Security Dispatcher Name Role Phone Callum Duenas DO Primary Care Physician Encounter [facility] Date(s): 07/28/23 - 08/27/23 [facility] [address], [place] [address] Attending Physician: AdmTodd qiu Admitting Physician: AdmtrTodd Referring Physician: Admtr, Ar8 Allergies, Adverse Reactions, [...] vaccine, inactivated 04/21/17 Chris rded SARS-CoV-2 mRNA ([id number]) vax 08/22/21 Recorded hepatitis B adult vaccine [...] diphtheria/tetanus/pertussis, acel(DTaP) 07/25/97 Recorded 1Result Comment: [05/07/2018] [facility] [id number] 2Result Comment: [facility]# [id number] 3Result Comment: [facility]# [id number] 4Result Comment: [10/09/2017] [facility] [id number] 5Result Comment: [08/10/2017] [facility] [id number] 01 6Result Comment: [07/16/2017] [facility] Medications Depo-Provera Contraceptive 150 mg/mL intramuscular suspension 1 mL = 150 mg, Intramuscular, Every 3 months, bring to clinic to administer, # 1 mL, 2 Refills, Maintenance, 10/11/22 14:49:00 EDT, Suspension, [facility]/pharmacy #[id number], 164, cm, 04/16/22 9:16:00 EDT, [...] 1 Refills, Soft Stop, 05/20/23 16:13:00 EST, [facility]/pharmacy #2339, 155, cm, 04/21/23 9:31:00 EDT, Height Start Date: 05/20/23 Status: Ordered famotidine 40 mg oral tablet See Instructions, TAKE 1 TABLET BY MOUTH EVERYDAY AT BEDTIME, # 90 tablet, 0 Refills, Maintenance, 06/16/23 9:19:00 EST, [facility]/pharmacy #2339, 155, cm, 04/21/23 9:31:00 EDT, Height Start Date: 06/16/23 Status: Ordered famotidine 40 mg oral tablet 1 tablet = 40 mg, By Mouth, Daily at bedtime, # 90 tablet, 0 Refills, Maintenance, 04/14/22 14:50:00 EDT, Tablet, [facility]/pharmacy #2339, 164, cm, 04/14/22 14:05:00 EDT, Height, 58, kg, 12/11/20 5:24:00 EDT, Dry Weight Start Date: 04/14/22 Stop Date: 07/13/22 Status: Ordered levocetirizine 5 mg oral tablet 1 tablet, By Mouth, Daily in PM, # 90 tablet, 3 Refills, Maintenance, 10/17/21 14:52:00 EDT, [facility]/pharmacy #2339, 1 tablet By Mouth Daily in PM, 164, cm, 10/17/21 14:30:00 EDT, Height, 58, kg, 12/11/20 5:24:00 EDT, Dry Weight Start Date: 10/17/21 Status: Ordered medroxyPROGESTERone 150 mg/mL intramuscular suspension = 150 mg, Intramuscular, Once, administered to left upper arm, IM, without incident lot [id number] exp 01/2024 [id number], 0 Refills, Maintenance, 01/31/22 11:17:00 EDT, Partial [...] 14:52:00 EDT, Aerosol, Route to Pharmacy Electronically, [id number], [facility]/pharmacy #2339, 164, cm, 10/17/21 14:30:00 EDT, [...] Gm, 2 Refills, Maintenance, 12/13/20 6:09:00 EDT, [place], [facility]/pharmacy #2339, 2 sprays Nares, Both Daily, [...] Refills, Maintenance, 04/14/22 14:51:00 EDT, Tablet, [facility]/pharmacy #2339, 164, cm, 04/14/22 14:05:00 EDT, Height, 58, kg, :24:00 EDT, Dry Weight Start Date: 04/14/22 Stop Date: 07/13/22 Status: Ordered Vitamin D3 50,000 intl units oral capsule 1 capsule = 1,250 mcg, By Mouth, Every week, new start 05/14/22, # 9 capsule, 0 Refills, Maintenance, 05/13/22 20:19:00 EST, Caps[place], [id number], Partial fill upon patient request if the [...] Primary Care Member Role: PCP Address: Address: [address] [place] [id number]- Care Team Related Persons Name: YOVANY BRICEÑO Address: home [address] [place] [id number]
--- OUTSIDE RECORDS SUMMARY | 2024-04-23 22:31 | XMS_ITS | Continuity of Care Document ---
Author Organization [facility] Address [address] [place] [address]- Care Team Providers Care Nuclear Waste Management Engineer Name Role Phone Callum Duenas DO Primary Care Physician En[place] [facility] Date(s): 03/15/23 - 04/14/23 [facility] [address] [place], [place] [address] Allergies, Adverse Reactions, Alerts Substance Reaction Severity [...] vaccine, inactivated 04/21/17 Chris rded SARS-CoV-2 mRNA (xgtbijp-qchi-tgwjk) vax 08/22/21 Recorded hepatitis B adult vaccine [...] diphtheria/tetanus/pertussis, acel(DTaP) 07/25/97 Recorded 1Result Comment: [05/07/2018] [facility] [id number] 2Result Comment: [facility]# [id number] 3Result Comment: [facility]# [id number] 4Result Comment: [10/09/2017] [facility] [id number] 5Result Comment: [08/10/2017] [facility] [phone] 01 6Result Comment: [07/16/2017] [facility] Medications Depo-Provera Contraceptive 150 mg/mL intramuscular suspension 1 mL = 150 mg, Intramuscular, Every 3 months, bring to clinic to administer, # 1 mL, 2 Refills, Maintenance, 10/11/22 14:49:00 EDT, Suspension, [facility]/pharmacy #2339, 164, cm, 04/16/22 9:16:00 EDT, Height, [...] Refills, Maintenance, 04/14/22 14:50:00 EDT, Tablet, [facility]/pharmacy #2339, 164, cm, 04/14/22 14:05:00 EDT, Height, 58, kg, 12/11/20 5:24:00 EDT, Dry Weight Start Date: 04/14/22 Stop Date: 07/13/22 Status: Ordered famotidine 40 mg oral tablet See Instructions, TAKE 1 TABLET BY MOUTH EVERYDAY AT BEDTIME, # 90 tablet, 0 Refills, Maintenance, 03/16/23 8:38:00 EDT, [facility] ST[id number], 155, cm, 09/02/22 17:49:00 EST, Height Start Date: 03/16/23 Status: Ordered levocetirizine 5 mg oral tablet 1 tablet, By Mouth, Daily in PM, # 90 tablet, 3 Refills, Maintenance, 10/17/21 14:52:00 EDT, [facility]/pharmacy #2339, 1 tablet By Mouth Daily in PM, 164, cm, 10/17/21 14:30:00 EDT, Height, 58, kg, 12/11/20 5:24:00 EDT, Dry Weight Start Date: 10/17/21 Status: Ordered medroxyPROGESTERone 150 mg/mL intramuscular suspension = 150 mg, Intramuscular, Once, administered to left upper arm, IM, without incident lot [id number] exp 01/2024 [id number], 0 Refills, Maintenance, 01/31/22 11:17:00 EDT, Partial [...] 14:52:00 EDT, Aerosol, Route to Pharmacy Electronically, [id number], [facility]/pharmacy #2339, 164, cm, 10/17/21 14:30:00 EDT, Hei... [...] Gm, 2 Refills, Maintenance, 12/13/20 6:09:00 EDT, [place], [facility]/pharmacy #2339, 2 sprays Nares, Both Daily, 164, [...] Refills, Maintenance, 04/14/22 14:51:00 EDT, Tablet, [facility]/pharmacy #2339, 164, cm, 04/14/22 14:05:00 EDT, Height, 58, kg, :24:00 EDT, Dry Weight Start Date: 04/14/22 Stop Date: 07/13/22 Status: Ordered Vitamin D3 50,000 intl units oral capsule 1 capsule = 1,250 mcg, By Mouth, Every week, new start 05/14/22, # 9 capsule, 0 Refills, Maintenance, 05/13/22 20:19:00 EST, Caps[place], [id number], Partial fill upon patient request if the [...] Primary Care Member Role: PCP Address: Address: [address] [place] [address]- Care Team Related Persons Name: YOVANY BRICEÑO Address: home [address] [place] [id number]
--- OUTSIDE RECORDS SUMMARY | 2024-04-23 22:31 | XMS_ITS | Continuity of Care Document ---
Author Organization [facility] Cali Ramses lt Address [address] [place] [address]- Care Team Providers Care Cardiovascular Specialist Name Role Phone Nannette [place] NP Primary Care Physician [place] [facility] [place](s[place] 12/05/19 - 12/12/19 [facility] Adult [address] [place] [address]- [facility] Encounter Diagnosis Environmental allergies(Discharge Diagnosis) - 12/05/19 Oral allergy syndrome(Discharge Diagnosis) - 12/05/19 Asthma(Discharge Diagnosis) - 12/05/19 Personal history of kidney stones(Discharge Diagnosis) - 12/05/19 Patellofemoral disorder(Discharge Diagnosis) - 12/05/19 Contraception management(Discharge Diagnosis) - 12/05/19 Bacterial vaginosis(Discharge Diagnosis) - 12/05/19 Attending Physician: Nannette [place] NP Allergies, Adverse [...] acel(Tdap) 4 05/19/17 Recorded 1Result Comment: [05/07/2018] [facility] [id number] 2Result Comment: [10/09/2017] [facility] [id number] 3Result Comment: [08/10/2017] [facility] [id number] 4Result Comment: [07/16/2017] [facility] Medications Breo Ellipta 200 mcg-25 mcg/inh inhalation powder 0 Refills, 12/05/19 13:34:00 EDT Start Date: 12/05/19 Status: Ordered Depo-Provera Contraceptive 150 mg/mL intramuscular suspension 1 mL = 150 mg, Intramuscular, Every 3 months, # 1 mL, 6 Refills, Maintenance, 12/05/19 14:24:00 EDT, [place], [facility], 155, cm, 04/11/19 8:37:00 EDT, Height, 55.8, kg, 09/15/18 18:40:00EDT, Dry Weight Start Date: 12/05/19 Status: Ordered EpiPen 2-Bonifacio 0.3 mg injectable kit = 0.3 mg, Intramuscular, Once, If case of allergic emergency., # 1 each, 0 Refills, Soft Stop, 02/11/19 9:04:53 EDT Start Date: 02/11/19 Status: Ordered famotidine 40 mg oral tablet 1 tablet = 40 mg, By Mouth, Daily at bedtime, # 90 tablet, 3 Refills, Maintenance, 10/10/19 16:17:00 EDT, Tablet, [facility]/pharmacy #2339, 155, cm, 04/11/19 8:37:00 EDT, Height, 55.8, kg, 09/15/18 18:40:00 EDT, Dry Weight Start Date: 10/10/19 Stop Date: 10/04/20 Status: Ordered metroNIDAZOLE 0.75% topical gel 1 application, Vaginally, 2 times a day, # 45 Gm, 0 Refills, Maintenance, 12/05/19 14:18:00 EDT, [facility], 1 application Vaginally 2 times a day,x5 days, 155, cm, 04/11/19 8:37:00 EDT, Height, 55.8, kg, 09/15/18 18:40:00 EDT, Dry Weight Start Date: 12/05/19 Stop Date: 12/10/19 Status: Ordered montelukast 10 mg oral tablet Refills 0, 12/05/19 13:33:00 EDT Start Date: 12/05/19 Status: Ordered ProAir HFA 90 mcg/inh inhalation aerosol with adapter 2, puffs, Inhalation, Every 6 hours, PRN, # 1 each, Refills 2, Tot. Refills 2, Maintenance, 12/01/19 13:58:00 EDT, Aerosol, Route to Pharmacy Electronically, [id number], [facility]/pharmacy #2339, 155, cm, 04/11/19 8:37:00 EDT, [place]... Start Date: 12/01/19 Status: Ordered triamcinolone 55 mcg/inh nasal spray 2 sprays, Nares, Both, Daily, # 10 Gm, 6 Refills, Maintenance, 12/05/19 14:15:00 EDT, [place], [facility]/pharmacy #2339, 2 sprays Nares, Both Daily, 155, [...] Mouth, Daily in PM, # 30 tablet, 3 Refills, Maintenance, 12/05/19 13:57:00 EDT,Tablet, [facility]/pharmacy #2339, 1 tablet By Mouth Daily in PM, 155, cm, 04/11/19 8:37:00 EDT, Height, 55.8, kg, 09/15/18 18:40:00 EDT, Dry Weight Start Date: 12/05/19 Status: Ordered ZyrTEC 10 mg oral tablet 1 tablet = 10 mg, By Mouth, Daily, # 90 tablet, 3 Refills, Maintenance, 12/05/19 13:58:00 EDT, Tablet, [facility]/pharmacy #2339, 155, cm, 04/11/19 8:37:00 EDT, Height, 55.8, kg, 09/15/18 18:40:00 EDT, Dry Weight Start Date: 12/05/19 Status: Ordered Problem List Condition Effective Dates Status Health Status Inform ant Adjustment disorder with anxiety(Confirmed) Active Asthma(Confirmed) Active Costochondritis(Confirmed) Active Patellofemoral disorder(Confirmed) Active Acid reflux(Confirmed) Active Personal history of kidney stones(Confirmed) Active Panic disorder without agoraphobia(Confirmed) Active Maxillary polyp of sinus(Confirmed) Active De Quervain's tenosynovitis, bilateral(Confirmed) Active Posterior tibial tendonitis(Confirmed) Active Diagnosis Diagnosis Type Effective Dates Health Status Clinical Service Informant Environmental allergies Discharge Diagnosis 12/05/19 Oral allergy syndrome Discharge Diagnosis 12/05/19 Asthma Discharge Diagnosis 12/05/19 Personal history of kidney stones Discharge Diagnosis 12/05/19 Patellofemoral disorder Discharge Diagnosis 12/05/19 Contraception management Discharge Diagnosis 12/05/19 Bacterial vaginosis Discharge Diagnosis 12/05/19 Social History Social History Type Response Smoking Status Never smoker; Tobacc o user in household: No entered on: 07/16/17 Sex
--- OUTSIDE RECORDS SUMMARY | 2024-04-23 22:31 | XMS_ITS | Continuity of Care Document ---
Author Organization [facility] Cali Ramses lt Address [address] [place] [address]- Care Team Providers Care Property Management Bookkeeper Name Role Phone Enrico SORENSON, Nannette Tellez Primary Care Physician [facility]counter [facility] Date(s): 12/11/20 - 01/10/21 [facility] Adult [address] [place] [address]- Allergies, Adverse Reactions, Alerts Substance Reaction Severity [...] Recorded 1Result Comment: [05/07/2018] [facility] [id number] 2Result Comment: [10/09/2017] [facility] [id number] 3Result Comment: [08/10/2017] [facility] [id number] 01 4Result Comment: [07/16/2017] [facility] Medications EpiPen 2-Bonifacio 0.3 mg injectable kit [...] 3 Refills, Maintenance, 10/10/19 16:17:00 EDT, Tablet, [facility]/pharmacy #2339, 155, cm, 04/11/19 8:37:00 EDT, [...] 13:58:00 EDT, Aerosol, Route to Pharmacy Electronically, [id number], [facility]/pharmacy #2339, 155, cm, 04/11/19 8:37:00 EDT, [place]... Start Date: 12/01/19 Status: Ordered triamcinolone 55 mcg/inh nasal spray 2 sprays, Nares, Both, Daily, # 10 Gm, 2 Refills, Maintenance, 12/13/20 6:09:00 EDT, [place], [facility]/pharmacy #2339, 2 sprays Nares, Both Daily, 164, cm, 12/07/20 18:05:00 EDT, Height, 58, kg, 12/11/20 5:24:00 EDT, Dry Weight Start Date: 12/13/20 Status: Ordered Vitamin D3 1000 intl units oral tablet 1 tablet = 1,000 International_Units, By Mouth, Daily, # 90 tablet, 3 Refills, Maintenance, 12/24/20 14:57:00 EDT, Tablet, [facility]/pharmacy #2339, 164, cm, 12/24/20 14:35:00 EDT, [...]
--- OUTSIDE RECORDS SUMMARY | 2024-04-23 22:32 | XMS_ITS | Continuity of Care Document ---
Author Organization [facility] Cali Ramses lt Address [address] [place] [address]- Care Team Providers Care Procurement Inspector Name Role Phone Enrico SORENSON, Nannette Tellez Primary Care Physician [phone] [facility]counter [facility] Date[facility]): [facility]20 - 05/06/20 [facility] Osvaldo Robertsley Adult [address] [place] [address]- Attending Physician: Admtr, Ar8 Admitting Physician: Admtr, Ar8 Referring Physician: Admtr, Ar8 Allergies, Adverse Reactions, [...] acel(Tdap) 4 05/19/17 Recorded 1Result Comment: [05/07/2018] [facility] [address]-25 2Result Comment: [10/09/2017] [facility] 03032-242-15 3Result Comment: [08/10/2017] [facility] 0006 4943 01 4Result Comment: [07/16/2017] [facility] Medications Breo Ellipta 200 mcg-25 mcg/inh inhalation powder 0 Refills, 12/05/19 13:34:00 EDT Start Date: 12/05/19 Status: Ordered Depo-Provera Contraceptive 150 mg/mL intramuscular suspension 1 mL = 150 mg, Intramuscular, Every 3 months, [facility] [address]-8 Lot [id number] Exp Manuf: Dominique. 1 mL administered IM in left deltoid on 04/02/20 pt tolerated well. NV RN, # 1 mL, 6 Refills,Maintenance, 12/05/19 14:24:00 EDT, Rachelle... Start Date: 12/05/19 Status: Ordered Diflucan 150 mg oral tablet 1 tablet = 150 mg, By Mouth, Once, As needed fo yeast infection. May repeat after 3 days if symptoms do not improve., # 1 tablet, 1 Refills, Soft Stop, 04/06/20 10:40:00 EDT, Tablet, [facility]/pharmacy #2339, 155, cm, 04/11/19 8:37:00 EDT, Height, 55.8, kg... Start Date: 04/06/20 Status: Ordered EpiPen 2-Bonifacio 0.3 mg injectable kit = 0.3 mg, Intramuscular, Once, If case of allergic emergency., # 1 each, 0 Refills, Soft Stop, 02/11/19 9:04:53 EDT Start Date: 02/11/19 Status: Ordered famotidine 40 mg oral tablet 1 tablet = 40 mg, By Mouth, Daily at bedtime, # 90 tablet, 3 Refills, Maintenance, 10/10/19 16:17:00 EDT, Tablet, [facility]/pharmacy #2339, 155, cm, 04/11/19 8:37:00 EDT, [...] 13:58:00 EDT, Aerosol, Route to Pharmacy Electronically, [id number], [facility]/pharmacy #2339, 155, cm, 04/11/19 8:37:00 EDT, [place]... Start Date: 12/01/19 Status: Ordered triamcinolone 55 mcg/inh nasal spray 2 sprays, Nares, Both, Daily, # 10 Gm, 6 Refills, Maintenance, 12/05/19 14:15:00 EDT, [place], [facility], 2 sprays Nares, Both Daily, 155, [...] 5 Refills, Maintenance, 04/19/20 9:08:00 EDT, Tablet, [facility]/pharmacy #2339, 1 tablet By Mouth Daily in PM, 155, cm, 04/06/20 12:20:00 EDT, Height, 55.8, kg, 09/15/18 18:40:00 EDT, Dry Weight Start Date: 04/19/20 Status: Ordered ZyrTEC 10 mg oral tablet 1 tablet = 10 mg, By Mouth, Daily, # 90 tablet, 3 Refills, Maintenance, 12/05/19 13:58:00 EDT, Tablet, [facility], 155, cm, 04/11/19 8:37:00 EDT, Height, 55.8, kg, 09/15/18 18:40:00 EDT, Dry Weight Start Date: 12/05/19 Status: Ordered Problem List Condition Effective Dates Status Health Status Inform ant Adjustment disorder with anxiety(Confirmed) Active Allergies(Confirmed) Active Asthma(Confirmed) Active Costochondritis(Confirmed) Active Patellofemoral disorder(Confirmed) Active Acid reflux(Confirmed) Active Personal history of kidney stones(Confirmed) Active Panic disorder without agoraphobia(Confirmed) Active Maxillary polyp of sinus(Confirmed) Active De Quervain's tenosynovitis, bilateral(Confirmed) Active Posterior tibial tendonitis(Confirmed) Active Social History Social History Type Response Smoking Status Never smoker; Tobacc o user in household: No entered on: 07/16/17 Sex
--- OUTSIDE RECORDS SUMMARY | 2024-04-23 22:32 | XMS_ITS | Continuity of Care Document ---
Author Organization [facility] Address [address] [place] [address]- Care Team Providers Care Tube Carrier Name Role Phone Enrico SORENSON, Nannette Tellez Primary Care Physician [phone] [facility]counter [facility] Date(s): 09/20/21 - 10/20/21 [facility] [address] [place] [address]- Allergies, Adverse Reactions, Alerts Substance Reaction Severity [...] acel(Tdap) 6 05/19/17 Recorded 1Result Comment: [05/07/2018] [facility] [address]-87 2Result Comment: [facility]# [id number] 3Result Comment: [facility]# [id number] 4Result Comment: [10/09/2017] [facility] 05720-847-79 5Result Comment: [08/10/2017] [facility] 0006 4943 01 6Result Comment: [07/16/2017] [facility] Medications Depo-Provera Contraceptive 150 mg/mL intramuscular suspension 1 mL = 150 mg, Intramuscular, Every 3 months, [facility] 14936-002-83 lot [id number] exp 08/2023 administered to left deltoid without incident, # 1 mL, 6 Refills, Maintenance, 07/23/21 16:38:00 EST, Suspension,[facility]/pharmacy #2339, 164, cm, 04/25/21 10:29:00 E... Start Date: 07/23/21 Status: Ordered EpiPen 2-Bonifacio 0.3 mg injectable kit = 0.3 mg, Intramuscular, Once, If case of allergic emergency., # 1 each, 1 Refills, Soft Stop, 10/17/21 14:53:00 EDT, [facility]/pharmacy #2339, 164, cm, 10/17/21 14:30:00 EDT, Height, 58, kg, 12/11/20 5:24:00 EDT, Dry Weight Start Date: 10/17/21 Status: Ordered famotidine 40 mg oral tablet 1 tablet = 40 mg, By Mouth, Daily at bedtime, # 90 tablet, 3 Refills, Maintenance, 10/10/19 16:17:00 EDT, Tablet, [facility]/pharmacy #2339, 155, cm, 04/11/19 8:37:00 EDT, Height, 55.8, kg, 09/15/18 18:40:00 EDT, Dry Weight Start Date: 10/10/19 Stop Date: 10/04/20 Status: Ordered levocetirizine 5 mg oral tablet 1 tablet, By Mouth, Daily in PM, # 90 tablet, 3 Refills, Maintenance, 10/17/21 14:52:00 EDT, [facility]/pharmacy #2339, 1 tablet By Mouth [...] 13:33:00 EDT Start Date: 12/05/19 Status: Ordered naproxen 500 mg oral tablet 1 tablet = 500 mg, By Mouth, 2 times a day, PRN for pain, for 10 days, # 20 tablet, 0 Refills, Acute 10/27/21 14:56:00 EDT, 10/17/21 14:56:00 EDT, Tablet, [facility]/pharmacy #2339, Partial fill upon patient request if the prescription is for a schedule II o... Start Date: 10/17/21 Stop Date: 10/27/21 Status: Ordered ProAir HFA 90 mcg/inh inhalation aerosol with adapter 2, puffs, Inhalation, Every 6 hours, PRN, # 1 each, Refills 3, Tot. Refills 3, Maintenance, 10/17/21 14:52:00 EDT, Aerosol, Route to Pharmacy Electronically, [id number], [facility]/pharmacy #2339, 164, cm, 10/17/21 14:30:00 [...] Gm, 2 Refills, Maintenance, 12/13/20 6:09:00 EDT, [place], [facility]/pharmacy #2339, 2 sprays Nares, Both Daily, 164, cm, 12/07/20 18:05:00 EDT, Height, 58, kg, 12/11/20 5:24:00 EDT, Dry Weight Start Date: 12/13/20 Status: Ordered Vitamin D3 1000 intl units oral tablet 1 tablet = 1,000 International_Units, By Mouth, Daily, # 90 tablet, 3 Refills, Maintenance, 10/17/21 14:53:00 EDT, Tablet, [facility]/pharmacy #2339, 164, cm, 10/17/21 14:30:00 EDT, Height, [...]
--- OUTSIDE RECORDS SUMMARY | 2024-04-23 22:32 | XMS_ITS | Continuity of Care Document ---
Author Organization [facility] Address [address] [place] [address]- Care Team Providers Care Acute Care Nurse Name Role Phone Callum Duenas DO Primary Care Physician [phone] Encounter [facility] Date(s): 07/20/23 - 08/19/[address] [address] Attending Physician: AdmPerry [id number] Admitting Physician: Admtr, Todd Referring Physician: Admtr, Ar8 Allergies, Adverse Reactions, [...] vaccine, inactivated 04/21/17 Chris rded SARS-CoV-2 mRNA ([id number]-[id number]-emfeq) vax 08/22/21 Recorded hepatitis B adult vaccine [...] diphtheria/tetanus/pertussis, acel(DTaP) 07/25/97 Recorded 1Result Comment: [05/07/2018] [facility] [address]-08 2Result Comment: [facility]# [id number] 3Result Comment: [facility]# [id number] 4Result Comment: [10/09/2017] [facility] 10941-462-02 5Result Comment: [08/10/2017] [facility] 0006 4943 01 6Result Comment: [07/16/2017] [facility] Medications Depo-Provera Contraceptive 150 mg/mL intramuscular suspension 1 mL = 150 mg, Intramuscular, Every 3 months, bring to clinic to administer, # 1 mL, 2 Refills, Maintenance, 10/11/22 14:49:00 EDT, Suspension, [facility]/pharmacy #2339, 164, cm, 04/16/22 9:16:00 EDT, [...] 1 Refills, Soft Stop, 05/20/23 16:13:00 EST, [facility]/pharmacy #2339, 155, cm, 04/21/23 9:31:00 EDT, Height Start Date: 05/20/23 Status: Ordered famotidine 40 mg oral tablet See Instructions, TAKE 1 TABLET BY MOUTH EVERYDAY AT BEDTIME, # 90 tablet, 0 Refills, Maintenance, 06/16/23 9:19:00 EST, [facility]/pharmacy #2339, 155, cm, 04/21/23 9:31:00 EDT, Height Start Date: 06/16/23 Status: Ordered famotidine 40 mg oral tablet 1 tablet = 40 mg, By Mouth, Daily at bedtime, # 90 tablet, 0 Refills, Maintenance, 04/14/22 14:50:00 EDT, Tablet, [facility]/pharmacy #2339, 164, cm, 04/14/22 14:05:00 EDT, Height, 58, kg, 12/11/20 5:24:00 EDT, Dry Weight Start Date: 04/14/22 Stop Date: 07/13/22 Status: Ordered levocetirizine 5 mg oral tablet 1 tablet, By Mouth, Daily in PM, # 90 tablet, 3 Refills, Maintenance, 10/17/21 14:52:00 EDT, [facility]/pharmacy #2339, 1 tablet By Mouth Daily in PM, 164, cm, 10/17/21 14:30:00 EDT, Height, 58, kg, 12/11/20 5:24:00 EDT, Dry Weight Start Date: 10/17/21 Status: Ordered medroxyPROGESTERone 150 mg/mL intramuscular suspension = 150 mg, Intramuscular, Once, administered to left upper arm, IM, without incident lot [id number] exp 01/2024 [id number], 0 Refills, Maintenance, 01/31/22 11:17:00 EDT, Partial [...] 14:52:00 EDT, Aerosol, Route to Pharmacy Electronically, [id number], [facility]/pharmacy #2339, 164, cm, 10/17/21 14:30:00 EDT, [...] Gm, 2 Refills, Maintenance, 12/13/20 6:09:00 EDT, [place], [facility]/pharmacy #2339, 2 sprays Nares, Both Daily, [...] 0 Refills, Maintenance, 04/14/22 14:51:00 EDT, Tablet, [facility]/pharmacy #2339, 164, cm, 04/14/22 14:05:00 EDT, Height, 58, kg, :24:00 EDT, Dry Weight Start Date: 04/14/22 Stop Date: 07/13/22 Status: Ordered Vitamin D3 50,000 intl units oral capsule 1 capsule = 1,250 mcg, By Mouth, Every week, new start 05/14/22, # 9 capsule, 0 Refills, Maintenance, 05/13/22 20:19:00 EST, [place], [id number], Partial fill upon patient request if the [...] Primary Care Member Role: PCP Address: Address: [address] [place] [address]- Care Team Related Persons Name: YOVANY BRICEÑO Address: home [address] [place] [address]
--- OUTSIDE RECORDS SUMMARY | 2024-04-23 22:32 | XMS_ITS | Continuity of Care Document ---
Author Organization [facility] Address [address] [place] [address]- Care Team Providers Care Painter Plate Name Role Phone Enrico SORENSON, Nannette Tellez Primary Care Physician [phone] [facility] Date(s): 01/18/20 - 02/17/20 [facility] Adult [address] [place] [address]- [facility] Allergies, Adverse Reactions, Alerts Substance Reaction Severity [...] Comment: [05/07/2018] [facility] [id number] 2Result Comment: [10/09/2017] [facility] 99876-617-98 3Result Comment: [08/10/2017] [facility] 0006 4943 01 4Result Comment: [07/16/2017] [facility] Medications Breo Ellipta 200 mcg-25 mcg/inh inhalation powder 0 Refills, 12/05/19 13:34:00 EDT Start Date: 12/05/19 Status: Ordered Depo-Provera Contraceptive 150 mg/mL intramuscular suspension 1 mL = 150 mg, Intramuscular, Every 3 months, [facility] [address]-9, Exp 09/2021, [facility]. 1 mL administered IM in left deltoid, pt tolerated well., # 1 mL, 6 Refills, Maintenance, 12/05/19 14:24:00 EDT, [place], [facility]/pharmacy #2339, 155, cm, 10... Start Date: 12/05/19 Status: Ordered EpiPen 2-Bonifacio 0.3 mg injectable kit = 0.3 mg, Intramuscular, Once, If case of allergic emergency., # 1 each, 0 Refills, Soft Stop, 02/11/19 9:04:53 EDT Start Date: 02/11/19 Status: Ordered famotidine 40 mg oral tablet 1 tablet = 40 mg, By Mouth, Daily at bedtime, # 90 tablet, 3 Refills, Maintenance, 10/10/19 16:17:00 EDT, Tablet, [facility]/pharmacy #2339, 155, cm, 04/11/19 8:37:00 EDT, Height, 55.8, kg, 09/15/18 18:40:00 EDT, Dry Weight Start Date: 10/10/19 Stop Date: 10/04/20 Status: Ordered metroNIDAZOLE 0.75% topical gel 1 application, Vaginally, 2 times a day, # 45 Gm, 0 Refills, Maintenance, 12/05/19 14:18:00 EDT, [facility]/pharmacy #2339, 1 application Vaginally 2 times a [...] 13:58:00 EDT, Aerosol, Route to Pharmacy Electronically, [id number], [facility]/pharmacy #2339, 155, cm, 04/11/19 8:37:00 EDT, [place]... Start Date: 12/01/19 Status: Ordered triamcinolone 55 mcg/inh nasal spray 2 sprays, Nares, Both, Daily, # 10 Gm, 6 Refills, Maintenance, 12/05/19 14:15:00 EDT, [place], [facility], 2 sprays Nares, Both Daily, [...] tablet, 3 Refills, Maintenance, 12/05/19 13:57:00 EDT,Tablet, [facility], 1 tablet By Mouth Daily [...]
--- OUTSIDE RECORDS SUMMARY | 2024-04-23 22:32 | XMS_ITS | Continuity of Care Document ---
Author Organization [facility] Address [address] [place] [address]- Care Team Providers Care Piano Stringer Name Role Phone Callum Duenas DO Primary Care Physician Encounter [facility] Date(s): 07/15/22 - 08/14/22 [facility] [address] [place], [place] [address] Attending Physician: Admtr, Perry8 Admitting Physician: Admtr, Ar8 Referring Physician: Admtr, [...] vaccine, inactivated 04/21/17 Chris rded SARS-CoV-2 mRNA ([id number]-npamk) vax 08/22/21 Recorded hepatitis B adult vaccine [...] diphtheria/tetanus/pertussis, acel(DTaP) 07/25/97 Recorded 1Result Comment: [05/07/2018] [facility] [address]-20 2Result Comment: [facility]# [id number] 3Result Comment: [facility]# 46776-723-84 4Result Comment: [10/09/2017] [facility] 13553-976-17 5Result Comment: [08/10/2017] [facility] 0006 4943 01 6Result Comment: [07/16/2017] [facility] Medications Depo-Provera Contraceptive 150 mg/mL intramuscular suspension [...] for 90 days, bring to clinic to administer Given in clinic after negative POC preg test Lot [id number] exp 07/23 [facility] [id number] [phone] pt own med IM right deltoid,# 1 mL, 0 Refills, Hard Stop 10/13/22 13:02:00 EDT... Start Date: 07/15/22 Stop Date: 10/13/22 Status: Ordered Dupixent Pre-filled Syringe 300 mg/2 mL subcutaneous solution 0 Refills, Maintenance, 04/16/22 10:15:00 EDT, Partial fill upon patient request if the prescription is for a schedule II opioid drug. Start Date: 04/16/22 Status: Ordered EpiPen 2-Bonifacio 0.3 mg injectable kit = 0.3 mg, Intramuscular, Once, If case of allergic emergency., # 1 each, 1 Refills, Soft Stop, 10/17/21 14:53:00 EDT, [facility]/pharmacy #2339, 164, cm, 10/17/21 14:30:00 EDT, Height, 58, kg, 12/11/20 5:24:00 EDT, Dry Weight Start Date: 10/17/21 Status: Ordered famotidine 40 mg oral tablet 1 tablet = 40 mg, By Mouth, Daily at bedtime, # 90 tablet, 0 Refills, Maintenance, 04/14/22 14:50:00 EDT, Tablet, [facility]/pharmacy #2339, 164, cm, 04/14/22 14:05:00 EDT, Height, 58, kg, 12/11/20 5:24:00 EDT, Dry Weight Start Date: 04/14/22 Stop Date: 07/13/22 Status: Ordered levocetirizine 5 mg oral tablet 1 tablet, By Mouth, Daily in PM, # 90 tablet, 3 Refills, Maintenance, 10/17/21 14:52:00 EDT, [facility]/pharmacy #2339, 1 tablet By Mouth Daily in PM, 164, cm, 10/17/21 14:30:00 EDT, Height, 58, kg, 12/11/20 5:24:00 EDT, Dry Weight Start Date: 10/17/21 Status: Ordered medroxyPROGESTERone 150 mg/mL intramuscular suspension = 150 mg, Intramuscular, Once, administered to left upper arm, IM, without incident lot [id number] exp 01/2024 [id number], 0 Refills, Maintenance, 01/31/22 11:17:00 EDT, Partial fill upon patient request if the prescription is for a schedule II op... Start Date: 01/31/22 Status: Ordered montelukast 10 mg oral tablet Refills 0, 12/05/19 13:33:00 EDT Start Date: 12/05/19 Status: Ordered pantoprazole 20 mg oral delayed release tablet 1 tablet = 20 mg, By Mouth, 2 times a day, # 28 tablet, 0 Refills, Maintenance, 07/16/22 16:02:00 EST, CR Tablet, 164, cm, 07/15/22 12:33:00 EST, Height, 58, kg, 12/11/20 5:24:00 EDT, Dry Weight Start Date: 07/16/22 Stop Date: 07/30/22 Status: Ordered ProAir HFA 90 mcg/inh inhalation aerosol with adapter 2, puffs, Inhalation, Every 6 hours, PRN, # 1 each, Refills 3, Tot. Refills 3, Maintenance, 10/17/21 14:52:00 EDT, Aerosol, Route to Pharmacy Electronically, [id number], [facility]/pharmacy #2339, 164, cm, 10/17/21 14:30:00 [...] Gm, 2 Refills, Maintenance, 12/13/20 6:09:00 EDT, [place], [facility]/pharmacy #2339, 2 sprays Nares, Both Daily, 164, cm, 12/07/20 18:05:00 EDT, Height, 58, kg, 12/11/20 5:24:00 EDT, Dry Weight Start Date: 12/13/20 Status: Ordered Vitamin D3 1000 intl units oral tablet 1 tablet = 1,000 International_Units, By Mouth, Daily, # 90 tablet, 0 Refills, Maintenance, 04/14/22 14:51:00 EDT, Tablet, [facility]/pharmacy #2339, 164, cm, 04/14/22 14:05:00 [...] Personnel Name: Callum Duenas DO Position: S Primary Care Physician Member Role: PCP Address: Address: [address] [place] [address]- Care Team Related Persons Name: YOVANY BRICEÑO Address: home [address] [place] [address] [place] [id number]
--- OUTSIDE RECORDS SUMMARY | 2024-04-23 22:32 | XMS_ITS | Continuity of Care Document ---
Author Organization [facility] Cali Ramses lt Address [address] [place] [address]- Care Team Providers Care Office Associate Name Role Phone Enrico SORENSON, Nannette Tellez Primary Care Physician [facility] Date[facility]s): 04[facility]20 - 04/09/20 [facility] Adult [address] [place] [address]- [facility] Attending Physician: Not on Staff, Attending MD [...] acel(Tdap) 4 05/19/17 Recorded 1Result Comment: [05/07/2018] [facility] [id number] 2Result Comment: [10/09/2017] [facility] 09121-522-80 3Result Comment: [08/10/2017] [facility] 0006 4943 01 4Result Comment: [07/16/2017] [facility] Medications Breo Ellipta 200 mcg-25 mcg/inh inhalation powder 0 Refills, 12/05/19 13:34:00 EDT Start Date: 12/05/19 Status: Ordered Depo-Provera Contraceptive 150 mg/mL intramuscular suspension 1 mL = 150 mg, Intramuscular, Every 3 months, [facility] [address]-9 Lot [id number] Exp Manuf: Dominique. 1 mL administered IM [...] Refills, Soft Stop, 04/06/20 10:40:00 EDT, Tablet, [facility]/pharmacy #2339, 155, cm, 04/11/19 8:37:00 [...] 3 Refills, Maintenance, 10/10/19 16:17:00 EDT, Tablet, [facility]/pharmacy #2339, 155, cm, 04/11/19 8:37:00 [...] 13:58:00 EDT, Aerosol, Route to Pharmacy Electronically, [id number], [facility]/pharmacy #2339, 155, cm, 04/11/19 8:37:00 EDT, [place]... Start Date: 12/01/19 Status: Ordered triamcinolone 55 mcg/inh nasal spray 2 sprays, Nares, Both, Daily, # 10 Gm, 6 Refills, Maintenance, 12/05/19 14:15:00 EDT, [place], [facility], 2 sprays Nares, Both Daily, [...] tablet, 3 Refills, Maintenance, 12/05/19 13:57:00 EDT,Tablet, [facility]/pharmacy #2339, 1 tablet By Mouth Daily in PM, 155, cm, 04/11/19 8:37:00 EDT, Height, 55.8, kg, 09/15/18 18:40:00 EDT, Dry Weight Start Date: 12/05/19 Status: Ordered ZyrTEC 10 mg oral tablet 1 tablet = 10 mg, By Mouth, Daily, # 90 tablet, 3 Refills, Maintenance, 12/05/19 13:58:00 EDT, Tablet, [facility]/pharmacy #2339, 155, cm, 04/11/19 8:37:00 [...]
--- OUTSIDE RECORDS SUMMARY | 2024-04-23 22:32 | XMS_ITS | Continuity of Care Document ---
Author Organization [facility] Address [address] [place] [address]- Care Team Providers Care Social Professionals Name Role Phone Callum Duenas DO Primary Care Physician [phone] Encounter [facility] Date(s): 07/07/23 - 08/09/[address] [address] Attending Physician: Callum Duenas DO Admitting Physician: Callum Duenas DO Allergies, Adverse Reactions, [...] vaccine, inactivated 04/21/17 Chris rded SARS-CoV-2 mRNA (cnnrbwl-[id number]-wweob) vax 08/22/21 Recorded hepatitis B adult vaccine [...] diphtheria/tetanus/pertussis, acel(DTaP) 07/25/97 Recorded 1Result Comment: [05/07/2018] [facility] [id number] 2Result Comment: [facility]# [id number] 3Result Comment: [facility]# [id number] 4Result Comment: [10/09/2017] [facility] [phone] 5Result Comment: [08/10/2017] [facility] [phone] 01 6Result Comment: [07/16/2017] [facility] Medications Depo-Provera Contraceptive 150 mg/mL intramuscular suspension 1 mL = 150 mg, Intramuscular, Every 3 months, bring to clinic to administer, # 1 mL, 2 Refills, Maintenance, 10/11/22 14:49:00 EDT, Suspension, [facility]/pharmacy #[id number], 164, cm, 04/16/22 9:16:00 [...] 1 Refills, Soft Stop, 05/20/23 16:13:00 EST, [facility]/pharmacy #[id number], 155, cm, 04/21/23 9:31:00 EDT, Height Start Date: 05/20/23 Status: Ordered famotidine 40 mg oral tablet See Instructions, TAKE 1 TABLET BY MOUTH EVERYDAY AT BEDTIME, # 90 tablet, 0 Refills, Maintenance, 06/16/23 9:19:00 EST, [facility]/pharmacy #[id number], 155, cm, 04/21/23 9:31:00 EDT, Height Start Date: 06/16/23 Status: Ordered famotidine 40 mg oral tablet 1 tablet = 40 mg, By Mouth, Daily at bedtime, # 90 tablet, 0 Refills, Maintenance, 04/14/22 14:50:00 EDT, Tablet, [facility]/pharmacy #2339, 164, cm, 04/14/22 14:05:00 EDT, Height, 58, kg, 12/11/20 5:24:00 EDT, Dry Weight Start Date: 04/14/22 Stop Date: 07/13/22 Status: Ordered levocetirizine 5 mg oral tablet 1 tablet, By Mouth, Daily in PM, # 90 tablet, 3 Refills, Maintenance, 10/17/21 14:52:00 EDT, [facility]/pharmacy #2339, 1 tablet By Mouth Daily in PM, 164, cm, 10/17/21 14:30:00 EDT, Height, 58, kg, 12/11/20 5:24:00 EDT, Dry Weight Start Date: 10/17/21 Status: Ordered medroxyPROGESTERone 150 mg/mL intramuscular suspension = 150 mg, Intramuscular, Once, administered to left upper arm, IM, without incident lot [id number] exp 01/2024 [id number], 0 Refills, Maintenance, 01/31/22 11:17:00 EDT, Partial [...] 14:52:00 EDT, Aerosol, Route to Pharmacy Electronically, [id number], [facility]/pharmacy #2339, 164, cm, 10/17/21 14:30:00 [...] Gm, 2 Refills, Maintenance, 12/13/20 6:09:00 EDT, [place], [facility]/pharmacy #2339, 2 [...] 0 Refills, Maintenance, 04/14/22 14:51:00 EDT, Tablet, [facility]/pharmacy #2339, 164, cm, 04/14/22 14:05:00 EDT, Height, 58, kg, :24:00 EDT, Dry Weight Start Date: 04/14/22 Stop Date: 07/13/22 Status: Ordered Vitamin D3 50,000 intl units oral capsule 1 capsule = 1,250 mcg, By Mouth, Every week, new start 05/14/22, # 9 capsule, 0 Refills, Maintenance, 05/13/22 20:19:00 EST, Capsule, [id number], Partial fill upon patient request if the [...] Team Personnel Name: Callum Duenas DO Position: [facility] Physician - Primary Care Member Role: PCP Address: Address: [address] [place] [address]- Care Team Related Persons Name: YOVANY BRICEÑO Address: home [address] [place] [address]
--- OUTSIDE RECORDS SUMMARY | 2024-04-23 22:32 | XMS_ITS | Continuity of Care Document ---
Author Organization [facility] Ramses lt Address [address] [place] [address]- Care Team Providers Care Accounts Adjustable Clerk Name Role Phone Enrico SORENSON, Nannette Tellez Primary Care Physician Encounter [facility] Date(s): 05/16/20 - 06/15/20 [facility] Adult [address] [place] [address]- Attending Physician: Admtr, Perry8 Admitting Physician: Admtr, [...] acel(Tdap) 4 05/19/17 Recorded 1Result Comment: [05/07/2018] [facility] [id number] 2Result Comment: [10/09/2017] [facility] [id number] 3Result Comment: [08/10/2017] [facility] [phone] 01 4Result Comment: [07/16/2017] [facility] Medications Breo Ellipta 200 mcg-25 mcg/inh inhalation powder 0 Refills, 12/05/19 13:34:00 EDT Start Date: 12/05/19 Status: Ordered Depo-Provera Contraceptive 150 mg/mL intramuscular suspension 1 mL = 150 mg, Intramuscular, Every 3 months, [facility] [address]-6 Lot [id number] Exp Manuf: Dominique. 1 mL administered IM [...] Refills, Soft Stop, 04/06/20 10:40:00 EDT, Tablet, [facility]/pharmacy #2339, 155, cm, 04/11/19 8:37:00 EDT, [...] 3 Refills, Maintenance, 10/10/19 16:17:00 EDT, Tablet, [facility]/pharmacy #2339, 155, cm, 04/11/19 8:37:00 EDT, [...] 13:58:00 EDT, Aerosol, Route to Pharmacy Electronically, [id number], [facility]/pharmacy #2339, 155, cm, 04/11/19 8:37:00 EDT, [place]... Start Date: 12/01/19 Status: Ordered triamcinolone 55 mcg/inh nasal spray 2 sprays, Nares, Both, Daily, # 10 Gm, 6 Refills, Maintenance, 12/05/19 14:15:00 EDT, [place], [facility]/pharmacy #2339, 2 sprays Nares, Both Daily, [...] 5 Refills, Maintenance, 04/19/20 9:08:00 EDT, Tablet, [facility]/pharmacy #2339, 1 tablet By Mouth Daily in PM, 155, cm, 04/06/20 12:20:00 EDT, Height, 55.8, kg, 09/15/18 18:40:00 EDT, Dry Weight Start Date: 04/19/20 Status: Ordered ZyrTEC 10 mg oral tablet 1 tablet = 10 mg, By Mouth, Daily, # 90 tablet, 3 Refills, Maintenance, 12/05/19 13:58:00 EDT, Tablet, [facility]/pharmacy #2339, 155, cm, 04/11/19 8:37:00 EDT, [...]
--- OUTSIDE RECORDS SUMMARY | 2024-04-23 22:32 | XMS_ITS | Continuity of Care Document ---
Author Organization [facility] Ramses lt Address [address] [place] [address]- Care Team Providers Care Editor Farm Journal Name Role Phone Enrico SORENSON, Nannette Tellez Primary Care Physician Encounter [facility] Date(s): 03/27/20 - 04/26/20 [facility] Adult [address] [place] [address]- [facility] Allergies, Adverse Reactions, Alerts Substance Reaction Severity [...] acel(Tdap) 4 05/19/17 Recorded 1Result Comment: [05/07/2018] [facility] [id number] 2Result Comment: [10/09/2017] [facility] [phone] 3Result Comment: [08/10/2017] [facility] 0006 4943 01 4Result Comment: [07/16/2017] [facility] Medications Breo Ellipta 200 mcg-25 mcg/inh inhalation powder 0 Refills, 12/05/19 13:34:00 EDT Start Date: 12/05/19 Status: Ordered Depo-Provera Contraceptive 150 mg/mL intramuscular suspension 1 mL = 150 mg, Intramuscular, Every 3 months, [facility] [id number] Lot [id number] Exp Manuf: Dominique. 1 mL administered IM [...] Refills, Soft Stop, 04/06/20 10:40:00 EDT, Tablet, [facility]/pharmacy #[id number], 155, cm, 04/11/19 8:37:00 EDT, [...] 3 Refills, Maintenance, 10/10/19 16:17:00 EDT, Tablet, [facility]/pharmacy #2339, 155, cm, 04/11/19 8:37:00 EDT, [...] 13:58:00 EDT, Aerosol, Route to Pharmacy Electronically, [id number], [facility]/pharmacy #2339, 155, cm, 04/11/19 8:37:00 EDT, [place]... Start Date: 12/01/19 Status: Ordered triamcinolone 55 mcg/inh nasal spray 2 sprays, Nares, Both, Daily, # 10 Gm, 6 Refills, Maintenance, 12/05/19 14:15:00 EDT, [place], [facility], 2 sprays Nares, Both Daily, [...]
--- OUTSIDE RECORDS SUMMARY | 2024-04-23 22:32 | XMS_ITS | Continuity of Care Document ---
Author Organization [facility] Address [address] [place] [address]- Care Team Providers Care Associate Professor Of Literature Name Role Phone Callum Duenas DO Primary Care Physician Encounter [facility] Date(s): 07/12/22 - 08/11/[address] [address]- Allergies, Adverse Reactions, Alerts Substance Reaction Severity [...] vaccine, inactivated 04/21/17 Chris rded SARS-CoV-2 mRNA (nkxaucw-iofn-icpmq) vax 08/22/21 Recorded hepatitis B adult vaccine 2 02/04/21 Given Hepatitis A Adult Vaccine 3 02/04/21 Given Hepatitis A Adult Vaccine 4 10/09/17 Given SARS-CoV-2 (COVID-19) mRNA BNT-162b2 vac 01/09/21 Recorded SARS-CoV-2 (COVID-19) mRNA BNT-162b2 vac 12/19/20 Recorded pneumococcal 23-valent vaccine 5 08/10/17 Given tetanus/diphtheria/pertussis, acel(Tdap) 6 05/19/17 Recorded tetanus/diphtheria/pertussis, acel(Tdap) 10/24/17 Recorded tetanus/diphtheria/pertussis, acel(Tdap) 08/24/07 Recorded Human Papillomavirus Vaccine 04/10/08 Recorded Human Papillomavirus Vaccine 10/26/07 Recorded Human Papillomavirus Vaccine 08/24/07 Recorded Meningococcal Conjugate Vaccine 08/24/07 Recorded tetanus-diphtheria toxoids (Td) 08/26/04 Recorded Measles/Mumps/Rubella Virus Vaccine 07/25/97 Recor ded Measles/Mumps/Rubella Virus Vaccine 10/23/93 Recor ded diphtheria/tetanus/pertussis, acel(DTaP) 07/25/97 Recorded 1Result Comment: [05/07/2018] [facility] [id number] 2Result Comment: [facility]# [id number] 3Result Comment: [facility]# [id number] 4Result Comment: [10/09/2017] [facility] 29794-290-17 5Result Comment: [08/10/2017] [facility] [phone] 01 6Result Comment: [07/16/2017] [facility] Depo-Provera Contraceptive 150 mg/mL intramuscular suspension 1 mL = 150 mg, Intramuscular, Every 3 months, bring to clinic to administer, # 1 mL, 2 Refills, Maintenance, 10/11/22 14:49:00 EDT, Suspension, [facility]/pharmacy #2339, 164, cm, 04/16/22 9:16:00 EDT, Height, 58, kg, 12/11/20 5:24:00 EDT, Dry Weight Start Date: 10/11/22 Stop Date: 07/08/23 Status: Ordered Depo-Provera Contraceptive 150 mg/mL intramuscular suspension 1 mL = 150 mg, Intramuscular, Every 3 months, for 90 days, bring to clinic to administer Given in clinic after negative POC preg test Lot [id number] exp 07/23 [facility] [id number] [phone] pt own med IM right [...] 1 Refills, Soft Stop, 10/17/21 14:53:00 EDT, [facility]/pharmacy #2339, 164, cm, 10/17/21 14:30:00 EDT, Height, 58, kg, 12/11/20 5:24:00 EDT, Dry Weight Start Date: 10/17/21 Status: Ordered famotidine 40 mg oral tablet 1 tablet = 40 mg, By Mouth, Daily at bedtime, # 90 tablet, 0 Refills, Maintenance, 04/14/22 14:50:00 EDT, Tablet, [facility]/pharmacy #2339, 164, cm, 04/14/22 14:05:00 EDT, Height, 58, kg, 12/11/20 5:24:00 EDT, Dry Weight Start Date: 04/14/22 Stop Date: 07/13/22 Status: Ordered levocetirizine 5 mg oral tablet 1 tablet, By Mouth, Daily in PM, # 90 tablet, 3 Refills, Maintenance, 10/17/21 14:52:00 EDT, [facility]/pharmacy #2339, 1 tablet By Mouth Daily in PM, 164, cm, 10/17/21 14:30:00 EDT, Height, 58, kg, 12/11/20 5:24:00 EDT, Dry Weight Start Date: 10/17/21 Status: Ordered medroxyPROGESTERone 150 mg/mL intramuscular suspension = 150 mg, Intramuscular, Once, administered to left upper arm, IM, without incident lot [id number] exp 01/2024 [id number], 0 Refills, Maintenance, 01/31/22 11:17:00 EDT, Partial [...] 14:52:00 EDT, Aerosol, Route to Pharmacy Electronically, [id number], [facility]/pharmacy #2339, 164, cm, 10/17/21 14:30:00 EDT, [...] Gm, 2 Refills, Maintenance, 12/13/20 6:09:00 EDT, [place], [facility]/pharmacy #2339, 2 sprays Nares, Both Daily, 164, cm, 12/07/20 18:05:00 EDT, Height, 58, kg, 12/11/20 5:24:00 EDT, Dry Weight Start Date: 12/13/20 Status: Ordered Vitamin D3 1000 intl units oral tablet 1 tablet = 1,000 International_Units, By Mouth, Daily, # 90 tablet, 0 Refills, Maintenance, 04/14/22 14:51:00 EDT, Tablet, [facility]/pharmacy #2339, 164, cm, 04/14/22 14:05:00 EDT, Height, 58, kg, 215:24:00 EDT, Dry Weight Start Date: 04/14/22 Stop Date: 07/13/22 Status: Ordered Vitamin D3 50,000 intl units oral capsule 1 capsule = 1,250 mcg, By Mouth, Every week, new start 05/14/22, # 9 capsule, 0 Refills, Maintenance, 05/13/22 20:19:00 EST, Caps[place], [id number], Partial fill upon patient request if the [...] Care Physician Member Role: PCP Address: Address: [address] [place] [address]- Care Team Related Persons Name: YOVANY BRICEÑO Address: home [address] [place] [address]
--- OUTSIDE RECORDS SUMMARY | 2024-04-23 22:32 | XMS_ITS | Continuity of Care Document ---
Author Organization [facility] Address [address] [place] [address]- Care Team Providers Care Grain Commodity Manager Name Role Phone Enrico SORENSON, Nannette Tellez Primary Care Physician Encounter [facility] Date(s): 12/27/20 - 02/11/[address] [address] Attending Physician: Tati Okeefe NP Admitting Physician: Tati Okeefe NP Referring Physician: Tati Okeefe NP Allergies, Adverse Reactions, Alerts Substance Reaction [...] tetanus/diphtheria/pertussis, acel(Tdap) 6 05/19/17 Recorded 1Result Comment: [facility]# [id number] 2Result Comment: [facility]# [id number] 3Result Comment: [10/09/2017] [facility] [id number] 4Result Comment: [05/07/2018] [facility] [id number] 5Result Comment: [08/10/2017] [facility] [phone] 01 6Result Comment: [07/16/2017] [facility] Medications EpiPen 2-Bonifacio 0.3 mg injectable kit = 0.3 mg, Intramuscular, Once, If case of allergic emergency., # 1 each, 1 Refills, Soft Stop, 12/24/20 14:57:00 EDT, [facility]/pharmacy #2339, 164, cm, 12/24/20 14:35:00 [...] 13:58:00 EDT, Aerosol, Route to Pharmacy Electronically, [id number], [facility]/pharmacy #2339, 155, cm, 04/11/19 8:37:00 EDT, [place]... Start Date: 12/01/19 Status: Ordered triamcinolone 55 mcg/inh nasal spray 2 sprays, Nares, Both, Daily, # 10 Gm, 2 Refills, Maintenance, 12/13/20 6:09:00 EDT, [place], [facility]/pharmacy #2339, 2 sprays Nares, Both Daily, 164, cm, 12/07/20 18:05:00 EDT, Height, 58, kg, 12/11/20 5:24:00 EDT, Dry Weight Start Date: 12/13/20 Status: Ordered Vitamin D3 1000 intl units oral tablet 1 tablet = 1,000 International_Units, By Mouth, Daily, # 90 tablet, 3 Refills, Maintenance, 12/24/20 14:57:00 EDT, Tablet, [facility]/pharmacy #2339, 164, cm, 12/24/20 14:35:00 EDT, Height, 58, kg, 215:24:00 EDT, Dry Weight Start Date: 12/24/20 Status: Ordered Xyzal 5 mg oral tablet 1 tablet = 5 mg, By Mouth, Daily in PM, # 30 tablet, 5 Refills, Maintenance, 11/20/20 9:28:00 EDT, Tablet, [facility]/pharmacy #2339, 1 [...]
--- OUTSIDE RECORDS SUMMARY | 2024-04-23 22:32 | XMS_ITS | Continuity of Care Document ---
Author Organization [facility] Address [address] [place] [address]- Care Team Providers Care Vial Gauger Name Role Phone Nannette Weston NP Primary Care Physician Encounter [facility] Date(s): 04/25/21 - 05/02/21 [facility] [address] [place] [address]- Encounter Diagnosis control counseling(Discharge Diagnosis) - 04/25/21 Costochondritis(Discharge Diagnosis) - 04/25/21 Asthma, moderate persistent(Discharge Diagnosis) - 04/25/21 Attending Physician: Nannette Weston NP Allergies, Adverse [...] acel(Tdap) 6 05/19/17 Recorded 1Result Comment: [05/07/2018] [facility] [id number] 2Result Comment: [facility]# [id number] 3Result Comment: [facility]# 13212-611-17 4Result Comment: [10/09/2017] [facility] 57175-538-40 5Result Comment: [08/10/2017] [facility] [phone] 01 6Result Comment: [07/16/2017] [facility] Medications Depo-Provera Contraceptive 150 mg/mL intramuscular suspension 1 mL = 150 mg, Intramuscular, Every 3 months, [facility] 21290-278-29 lot [id number] exp 08/2023 administered to left deltoid without incident, # 1 mL, 6 Refills, Maintenance, 04/29/21 12:12:00 EDT, Suspension Start Date: 04/29/21 Status: Ordered EpiPen 2-Bonifacio 0.3 mg injectable kit = 0.3 mg, Intramuscular, Once, If case of allergic emergency., # 1 each, 1 Refills, Soft Stop, 12/24/20 14:57:00 EDT, [facility]/pharmacy #2339, 164, cm, 12/24/20 14:35:00 EDT, Height, 58, kg, 12/11/20 5:24:00 EDT, Dry Weight Start Date: 12/24/20 Status: Ordered famotidine 40 mg oral tablet 1 tablet = 40 mg, By Mouth, Daily at bedtime, # 90 tablet, 3 Refills, Maintenance, 10/10/19 16:17:00 EDT, Tablet, [facility]/pharmacy #2339, 155, cm, 04/11/19 8:37:00 EDT, Height, [...] days, # 20 tablet, 0 Refills, Acute 05/05/21 11:00:00 EST, 04/25/21 11:00:00 EDT, Tablet, [facility]/pharmacy #2339, Partial fill upon patient request if the prescription is for a schedule II o... Start Date: 04/25/21 Stop Date: 05/05/21 Status: Ordered ProAir HFA 90 mcg/inh inhalation aerosol with adapter 2, puffs, Inhalation, Every 6 hours, PRN, # 1 each, Refills 2, Tot. Refills 2, Maintenance, 12/01/19 13:58:00 EDT, Aerosol, Route to Pharmacy Electronically, [id number], [facility]/pharmacy #2339, 155, cm, 04/11/19 8:37:00 EDT, [place]... [...] Gm, 2 Refills, Maintenance, 12/13/20 6:09:00 EDT, [place], [facility]/pharmacy #2339, 2 sprays Nares, Both Daily, 164, cm, 12/07/20 18:05:00 EDT, Height, 58, kg, 12/11/20 5:24:00 EDT, Dry Weight Start Date: 12/13/20 Status: Ordered Vitamin D3 1000 intl units oral tablet 1 tablet = 1,000 International_Units, By Mouth, Daily, # 90 tablet, 3 Refills, Maintenance, 04/25/21 10:47:00 EDT, Tablet, [facility]/pharmacy #2339, 164, cm, 04/25/21 10:29:00 EDT, Height, 58, kg, 215:24:00 EDT, Dry Weight Start Date: 04/25/21 Status: Ordered Xyzal 5 mg oral tablet 1 tablet = 5 mg, By Mouth, Daily in PM, # 30 tablet, 5 Refills, Maintenance, 11/20/20 9:28:00 EDT, Tablet, [facility]/pharmacy #2339, 1 tablet By Mouth Daily in [...] Active Urolithiasis(Confirmed) Active 1AINE 2[place], [place] Diagnosis Diagnosis Type Effective Dates Health Status Clinical Service Informant control counseling Discharge Diagnosis 04/25/21 Costochondritis Discharge Diagnosis 04/25/21 Asthma, moderate persistent Discharge Diagnosis 04/25/21 Vital Signs Most recent to oldest [Reference Range]: 1 Height 164 cm (04/25/21 10:29 AM) Weight 53.2 kg (04/25/21 10:29 AM) Oxygen Saturation [94-100 %] 98 % (04/25/21 10:29 AM) Pulse Rate [55-90 bpm] 84 bpm (04/25/21 10:29 AM) Body Mass Index [18.5-24.99] 19.78 (04/25/21 10:29 AM) Blood Pressure [90-138/55-84 mm Hg] 104/ 70mm Hg (04/25/21 10:29 AM) Respiratory Rate [16-30 br/min] 18 br/mi n (04/25/21 10:29 AM) Blood pressure sites Arm, right (04/25/21 10:29 AM) Weight Obtained Via Standing scale (04/25/21 10:29 AM) Social History Social History Type Response Smoking Status Never smoker; Tobacc o user in household: No entered on: 07/16/17 Sex
--- OUTSIDE RECORDS SUMMARY | 2024-04-23 22:32 | XMS_ITS | Continuity of Care Document ---
Author Organization [facility] Address [address] [place] [address]- Care Team Providers Care Carpenter Helper Name Role Phone Enrico SORENSON, Nannette Geronimo Primary Care Physician [facility] Date(s[place] 04/14/22 - 04/21/22 [facility] [address] [place] [address]- Encounter Diagnosis RUQ abdominal pain(Discharge Diagnosis) - 04/14/22 Vitamin D deficiency(Discharge Diagnosis) - 04/14/22 GERD (gastroesophageal reflux disease)(Discharge Diagnosis) - 04/14/22 Contraception management(Discharge Diagnosis) - 04/14/22 Attending Physician: Chacha Ahmadi MD Referring Physician: Enrico SORENSON, Nannette Geronimo Allergies, Adverse Reactions, Alerts Substance Reaction Severity [...] acel(Tdap) 6 05/19/17 Recorded 1Result Comment: [05/07/2018] [facility] [id number] 2Result Comment: [facility]# [id number] 3Result Comment: [facility]# [id number] 4Result Comment: [10/09/2017] [facility] 58213-543-48 5Result Comment: [08/10/2017] [facility] [phone] 01 6Result Comment: [07/16/2017] [facility] Medications Depo-Provera Contraceptive = 150 mg, [...] 1 Refills, Soft Stop, 10/17/21 14:53:00 EDT, [facility]/pharmacy #2339, 164, cm, 10/17/21 14:30:00 EDT, Height, 58, kg, 12/11/20 5:24:00 EDT, Dry Weight Start Date: 10/17/21 Status: Ordered famotidine 40 mg oral tablet 1 tablet = 40 mg, By Mouth, Daily at bedtime, # 90 tablet, 0 Refills, Maintenance, 04/14/22 14:50:00 EDT, Tablet, [facility]/pharmacy #2339, 164, cm, 04/14/22 14:05:00 EDT, Height, 58, kg, 12/11/20 5:24:00 EDT, Dry Weight Start Date: 04/14/22 Stop Date: 07/13/22 Status: Ordered levocetirizine 5 mg oral tablet 1 tablet, By Mouth, Daily in PM, # 90 tablet, 3 Refills, Maintenance, 10/17/21 14:52:00 EDT, [facility]/pharmacy #2339, 1 tablet By Mouth Daily in [...] left upper arm, IM, without incident lot [id number] exp 01/2024 [id number], 0 Refills, Maintenance, 01/31/22 11:17:00 EDT, Partial [...] 14:52:00 EDT, Aerosol, Route to Pharmacy Electronically, [id number], [facility]/pharmacy #2339, 164, cm, 10/17/21 14:30:00 EDT, Hei... [...] Gm, 2 Refills, Maintenance, 12/13/20 6:09:00 EDT, [place], [facility]/pharmacy #2339, 2 sprays Nares, Both Daily, 164, [...] Effective Dates Health Status Clinical Service Informant RUQ abdominal pain Discharge Diagnosis 04/14/22 Vitamin D deficiency Discharge Diagnosis 04/14/22 GERD (gastroesophageal reflux disease) Discharge Diagnosis 04/14/22 Contraception management Discharge Diagnosis 04/14/22 Vital Signs Most recent to oldest [Reference Range]: 1 Height 164 cm (04/14/22 2:05 PM) Weight 57.3 kg (04/14/22 2:05 PM) Pulse Rate [55-90 bpm] 89 bpm (04/14/22 2:05 PM) Body Mass Index [18.5-24.99 kg/m2] 21.3 kg/m2 (04/14/22 2:05 PM) Blood Pressure [90-138/55-84 mm Hg] 106/ 62mm Hg (04/14/22 2:05 PM) Blood pressure sites Arm, left (04/14/22 2:05 PM) Weight Obtained Via Standing scale (04/14/22 2:05 PM) Social History Social History Type Response Smoking Status Never smoker; Tobacc o user in household: No entered on: 07/16/17 Sex Patient Care team information Personnel Name: Nannette Weston NP Address: Address: [address] [place] [address] [place], [place] [address]
--- OUTSIDE RECORDS SUMMARY | 2024-04-23 22:32 | XMS_ITS | Continuity of Care Document ---
Author Organization [facility] Address [address] [place] [address]- Care Team Providers Care Planogrammer Name Role Phone Enrico SORENSON, Nannette Tellez Primary Care Physician [facility] Date[facility] - 11/08/21 [facility] [address] [place] [address]- Allergies, Adverse Reactions, Alerts Substance Reaction Severity [...] acel(Tdap) 6 05/19/17 Recorded 1Result Comment: [05/07/2018] [facility] [id number] 2Result Comment: [facility]# [id number] 3Result Comment: [facility]# [id number] 4Result Comment: [10/09/2017] [facility] 36576-681-10 5Result Comment: [08/10/2017] [facility] [phone] 01 6Result Comment: [07/16/2017] [facility] Medications Depo-Provera Contraceptive = 150 mg, Intramuscular, Once, Right Deltoid, 0 Refills, Maintenance, 10/30/21 10:51:00 EDT, Partial fill upon patient request if the prescription is for a schedule II opioid drug. Start Date: 10/30/21 Status: Ordered Depo-Provera Contraceptive 150 mg/mL intramuscular suspension 1 mL = 150 mg, Intramuscular, Every 3 months, [facility] [id number] lot [id number] exp 08/2023 administered to left deltoid without incident, # 1 mL, 6 Refills, Maintenance, 07/23/21 16:38:00 EST, [place],[id number], 164, cm, 04/25/21 10:29:00 E... Start [...] 14:52:00 EDT, Aerosol, Route to Pharmacy Electronically, [id number], [facility]/pharmacy #2339, 164, cm, 10/17/21 14:30:00 EDT, Hei... [...] Gm, 2 Refills, Maintenance, 12/13/20 6:09:00 EDT, [place], [facility]/pharmacy #2339, 2 sprays Nares, Both Daily, 164, cm, 12/07/20 18:05:00 EDT, Height, 58, kg, 12/11/20 5:24:00 EDT, Dry Weight Start Date: 12/13/20 Status: Ordered Vitamin D3 1000 intl units oral tablet 1 tablet = 1,000 International_Units, By Mouth, Daily, # 90 tablet, 3 Refills, Maintenance, 10/17/21 14:53:00 EDT, Tablet, [facility]/pharmacy #2339, 164, cm, 10/17/21 14:30:00 EDT, Height, 58, kg, 06/15/215:24:00 EDT, Dry Weight Start Date: 10/17/21 Status: [...]
--- OUTSIDE RECORDS SUMMARY | 2024-04-23 22:32 | XMS_ITS | Continuity of Care Document ---
Author Organization [facility] Address [address] [place] [address]- Care Team Providers Care Old Coin Dealer Name Role Phone Enrico SORENSON, Nannette Tellez Primary Care Physician [phone] [facility]counter [facility] Date[facility]s): 10/13/19 - 02/05/20 [facility] [address] [place] [address]- [facility] Attending Physician: Lauro BAILEY, Nicolas Jimenez Allergies, Adverse Reactions, Alerts Substance Reaction Severity [...] acel(Tdap) 4 05/19/17 Recorded 1Result Comment: [05/07/2018] [facility] [id number] 2Result Comment: [10/09/2017] [facility] 88300-718-33 3Result Comment: [08/10/2017] [facility] [phone] 01 4Result Comment: [07/16/2017] [facility] Medications Breo Ellipta 200 mcg-25 mcg/inh inhalation powder 0 Refills, 12/05/19 13:34:00 EDT Start Date: 12/05/19 Status: Ordered Depo-Provera Contraceptive 150 mg/mL intramuscular suspension 1 mL = 150 mg, Intramuscular, Every 3 months, [facility] [address]-3, Exp 09/2021, [facility]. 1 mL administered IM in left deltoid, pt tolerated well., # 1 mL, 6 Refills, Maintenance, 12/05/19 14:24:00 EDT, Suspension, [facility]/pharmacy #2339, 155, cm, 10... Start Date: 12/05/19 [...] 3 Refills, Maintenance, 10/10/19 16:17:00 EDT, Tablet, [facility]/pharmacy #2339, 155, cm, 04/11/19 8:37:00 EDT, Height, 55.8, kg, 09/15/18 18:40:00 EDT, Dry Weight Start Date: 10/10/19 Stop Date: 10/04/20 Status: Ordered Keflex monohydrate 500 mg oral capsule 1 capsule = 500 mg, By Mouth, 3 times a day, for 10 days, # 30 capsule, 0 Refills, Acute 02/14/20 0:34:00 EDT, 02/04/20 0:34:00 EDT, Capsule, [facility]/pharmacy #2339, 155, cm, 04/11/19 8:37:00 EDT, Height, 55.8, kg, 09/15/18 18:40:00 EDT, Dry Weight Start Date: 02/04/20 Stop Date: 02/14/20 Status: Ordered metroNIDAZOLE 0.75% topical gel 1 [...] 13:58:00 EDT, Aerosol, Route to Pharmacy Electronically, [id number], [facility]/pharmacy #2339, 155, cm, 04/11/19 8:37:00 EDT, Heig... Start Date: 12/01/19 Status: Ordered triamcinolone 55 mcg/inh nasal spray 2 sprays, Nares, Both, Daily, # 10 Gm, 6 Refills, Maintenance, 12/05/19 14:15:00 EDT, [place], [facility]/pharmacy #2339, 2 sprays Nares, Both [...] tablet, 3 Refills, Maintenance, 12/05/19 13:57:00 EDT,Tablet, [facility]/pharmacy #2339, 1 tablet By Mouth Daily in PM, 155, cm, 04/11/19 8:37:00 EDT, Height, 55.8, kg, 09/15/18 18:40:00 EDT, Dry Weight Start Date: 12/05/19 Status: Ordered ZyrTEC 10 mg oral tablet 1 tablet = 10 mg, By Mouth, Daily, # 90 tablet, 3 Refills, Maintenance, 12/05/19 13:58:00 EDT, Tablet, [facility]/pharmacy #2339, 155, cm, 04/11/19 8:37:00 [...]
--- OUTSIDE RECORDS SUMMARY | 2024-04-23 22:32 | XMS_ITS | Continuity of Care Document ---
Author Organization [facility] Address [address] [place] [address]- Care Team Providers Care Administrative Support Technician Name Role Phone Callum Duenas DO Primary Care Physician [phone] [place] [facility] [place] 04/16/23 - 05/16/23 [facility] [address] [place], [place] [address] Allergies, Adverse Reactions, Alerts Substance Reaction Severity [...] vaccine, inactivated 04/21/17 Chris rded SARS-CoV-2 mRNA (dyeuowu-dmfb-stoca) vax 08/22/21 Recorded hepatitis B adult vaccine [...] diphtheria/tetanus/pertussis, acel(DTaP) 07/25/97 Recorded 1Result Comment: [05/07/2018] [facility] [id number] 2Result Comment: [facility]# [id number] 3Result Comment: [facility]# [id number] 4Result Comment: [10/09/2017] [facility] 97280-305-42 5Result Comment: [08/10/2017] [facility] 0006 4943 01 6Result Comment: [07/16/2017] [facility] Medications Depo-Provera Contraceptive 150 mg/mL intramuscular suspension 1 mL = 150 mg, Intramuscular, Every 3 months, bring to clinic to administer, # 1 mL, 2 Refills, Maintenance, 10/11/22 14:49:00 EDT, Suspension, [facility]/pharmacy #2339, 164, cm, 04/16/22 [...] 1 Refills, Soft Stop, 10/17/21 14:53:00 EDT, [facility]/pharmacy #2339, 164, cm, 10/17/21 14:30:00 EDT, Height, 58, kg, 12/11/20 5:24:00 EDT, Dry Weight Start Date: 10/17/21 Status: Ordered famotidine 40 mg oral tablet 1 tablet = 40 mg, By Mouth, Daily at bedtime, # 90 tablet, 0 Refills, Maintenance, 04/14/22 14:50:00 EDT, Tablet, [facility]/pharmacy #2339, 164, cm, 04/14/22 14:05:00 EDT, Height, 58, kg, 12/11/20 5:24:00 EDT, Dry Weight Start Date: 04/14/22 Stop Date: 07/13/22 Status: Ordered famotidine 40 mg oral tablet See Instructions, TAKE 1 TABLET BY MOUTH EVERYDAY AT BEDTIME, # 90 tablet, 0 Refills, Maintenance, 03/16/23 8:38:00 EDT, [facility] STORE 780[facility], 155, cm, 09/02/22 17:49:00 EST, Height Start Date: 03/16/23 Status: Ordered levocetirizine 5 mg oral tablet 1 tablet, By Mouth, Daily in PM, # 90 tablet, 3 Refills, Maintenance, 10/17/21 14:52:00 EDT, [facility]/pharmacy #2339, 1 tablet By Mouth Daily in PM, 164, cm, 10/17/21 14:30:00 EDT, Height, 58, kg, 12/11/20 5:24:00 EDT, Dry Weight Start Date: 10/17/21 Status: Ordered medroxyPROGESTERone 150 mg/mL intramuscular suspension = 150 mg, Intramuscular, Once, administered to left upper arm, IM, without incident lot [id number] exp 01/2024 [id number], 0 Refills, Maintenance, 01/31/22 11:17:00 EDT, Partial [...] 14:52:00 EDT, Aerosol, Route to Pharmacy Electronically, [id number], [facility]/pharmacy #2339, 164, cm, 10/17/21 [...] Gm, 2 Refills, Maintenance, 12/13/20 6:09:00 EDT, [place], [facility]/pharmacy #2339, 2 sprays [...] 0 Refills, Maintenance, 04/14/22 14:51:00 EDT, Tablet, [facility]/pharmacy #2339, 164, cm, 04/14/22 14:05:00 EDT, Height, 58, kg, :24:00 EDT, Dry Weight Start Date: 04/14/22 Stop Date: 07/13/22 Status: Ordered Vitamin D3 50,000 intl units oral capsule 1 capsule = 1,250 mcg, By Mouth, Every week, new start 05/14/22, # 9 capsule, 0 Refills, Maintenance, 05/13/22 20:19:00 EST, Capsule, [id number], Partial fill upon patient request if the [...] Care Member Role: PCP Address: Address: [address] [place] [address]- Care Team Related Persons Name: YOVANY BRICEÑO Address: home [address] [place] [id number]
--- OUTSIDE RECORDS SUMMARY | 2024-04-23 22:32 | XMS_ITS | Continuity of Care Document ---
Author Organization [facility] Address [address] [place] [address]- Care Team Providers Care Bulldozer Engineer Name Role Phone Enrico SORENSON, Nannette Tellez Primary Care Physician [phone] [place] [facility] [place] 12/05[place]19 - 01/04/20 [facility] Adult [address] [place] [address]- [facility] Attending Physician: AdmTodd qiu Admitting Physician: AdmtrTodd Referring Physician: Admtr, Todd Allergies, Adverse Reactions, Alerts Substance Reaction Severity [...] 4 05/19/17 Recorded 1Result Comment: [05/07/2018] [facility] [id number] 2Result Comment: [10/09/2017] [facility] 91395-661-12 3Result Comment: [08/10/2017] [facility] 0006 4943 01 4Result Comment: [07/16/2017] [facility] Medications Breo Ellipta 200 mcg-25 mcg/inh inhalation powder 0 Refills, 12/05/19 13:34:00 EDT Start Date: 12/05/19 Status: Ordered Depo-Provera Contraceptive 150 mg/mL intramuscular suspension 1 mL = 150 mg, Intramuscular, Every 3 months, # 1 mL, 6 Refills, Maintenance, 12/05/19 14:24:00 EDT, [place]pension, [facility]/pharmacy #2339, 155, cm, 04/11/19 8:37:00 EDT, [...] 3 Refills, Maintenance, 10/10/19 16:17:00 EDT, Tablet, [facility]/pharmacy #2339, 155, cm, 04/11/19 8:37:00 EDT, Height, 55.8, kg, 09/15/18 18:40:00 EDT, Dry Weight Start Date: 10/10/19 Stop Date: 10/04/20 Status: Ordered metroNIDAZOLE 0.75% topical gel 1 application, Vaginally, 2 times a day, # 45 Gm, 0 Refills, Maintenance, 12/05/19 14:18:00 EDT, [facility]/pharmacy #2339, 1 application Vaginally 2 times [...] 13:58:00 EDT, Aerosol, Route to Pharmacy Electronically, [id number], [facility]/pharmacy #2339, 155, cm, 10/14/19 8:37:00 EDT, Heig... Start Date: 12/01/19 Status: Ordered triamcinolone 55 mcg/inh nasal spray 2 sprays, Nares, Both, Daily, # 10 Gm, 6 Refills, Maintenance, 12/05/19 14:15:00 EDT, [place], [facility]/pharmacy #2339, 2 sprays Nares, Both Daily, [...] tablet, 3 Refills, Maintenance, 12/05/19 13:57:00 EDT,Tablet, [facility]/pharmacy #2339, 1 tablet By Mouth Daily in PM, 155, cm, 04/11/19 8:37:00 EDT, Height, 55.8, kg, 09/15/18 18:40:00 EDT, Dry Weight Start Date: 12/05/19 Status: Ordered ZyrTEC 10 mg oral tablet 1 tablet = 10 mg, By Mouth, Daily, # 90 tablet, 3 Refills, Maintenance, 12/05/19 13:58:00 EDT, Tablet, [facility]/pharmacy #2339, 155, cm, 04/11/19 8:37:00 EDT, [...]
--- OUTSIDE RECORDS SUMMARY | 2024-04-23 22:32 | XMS_ITS | Continuity of Care Document ---
Author Organization [facility] Address [address] [place] [address]- Care Team Providers Care Public Address Announcer Name Role Phone Enrico SORENSON, Nannette Tellez Primary Care Physician [place] [facility] [place] [place] 01/10/20 - 01/17/20 [facility] Adult [address] [place] [address]- [facility] Attending Physician: Not on Staff, [...] acel(Tdap) 4 05/19/17 Recorded 1Result Comment: [05/07/2018] [facility] [id number] 2Result Comment: [10/09/2017] [facility] 82209-193-13 3Result Comment: [08/10/2017] [facility] 0006 4943 01 4Result Comment: [07/16/2017] [facility] Medications Breo Ellipta 200 mcg-25 mcg/inh inhalation powder 0 Refills, 12/05/19 13:34:00 EDT Start Date: 12/05/19 Status: Ordered Depo-Provera Contraceptive 150 mg/mL intramuscular suspension 1 mL = 150 mg, Intramuscular, Every 3 months, [facility] [address]-1, Exp 09/2021, [facility]. 1 mL administered IM in left deltoid, pt tolerated well., # 1 mL, 6 Refills, Maintenance, 12/05/19 14:24:00 EDT, Suspension, [facility]/pharmacy #2339, 155, cm, 10... Start Date: [...] 3 Refills, Maintenance, 10/10/19 16:17:00 EDT, Tablet, [facility]/pharmacy #2339, 155, cm, 04/11/19 8:37:00 EDT, Height, 55.8, kg, 09/15/18 18:40:00 EDT, Dry Weight Start Date: 10/10/19 Stop Date: 10/04/20 Status: Ordered metroNIDAZOLE 0.75% topical gel 1 application, Vaginally, 2 times a day, # 45 Gm, 0 Refills, Maintenance, 12/05/19 14:18:00 EDT, [facility]/pharmacy #2339, 1 application Vaginally 2 times [...] 13:58:00 EDT, Aerosol, Route to Pharmacy Electronically, [id number], [facility]/pharmacy #2339, 155, cm, 04/11/19 8:37:00 EDT, [place]... Start Date: 12/01/19 Status: Ordered triamcinolone 55 mcg/inh nasal spray 2 sprays, Nares, Both, Daily, # 10 Gm, 6 Refills, Maintenance, 12/05/19 14:15:00 EDT, [place], [facility]/pharmacy #2339, 2 sprays Nares, [...]
--- OUTSIDE RECORDS SUMMARY | 2024-04-23 22:32 | XMS_ITS | Continuity of Care Document ---
Author Organization [facility] Address [address] [place] [address]- Care Team Providers Care Eyewear Consultant Name Role Phone Enrico SORENSON, Nannette Tellez Primary Care Physician Encounter [facility] Date(s): 04/06/20 - 04/13/20 [facility] Adult [address] [place] [address]- [facility] Encounter Diagnosis Vaginosis(Discharge Diagnosis) - 04/06/20 IBS (irritable bowel syndrome)(Discharge Diagnosis) - 04/06/20 Adjustment disorder with anxiety(Discharge Diagnosis) - 04/06/20 Acid reflux(Discharge Diagnosis) - 04/06/20 Patellofemoral disorder(Discharge Diagnosis) - 04/06/20 Allergies(Discharge Diagnosis) - 04/06/20 Asthma(Discharge Diagnosis) - 04/06/20 Attending Physician: Nannette Weston NP Referring Physician: Nicolas Restrepo MD Allergies, Adverse Reactions, Alerts Substance Reaction [...] Comment: [05/07/2018] [facility] [address]-49 2Result Comment: [10/09/2017] [facility] 77727-469-97 3Result Comment: [08/10/2017] [facility] 0006 4943 01 4Result Comment: [07/16/2017] [facility] Medications Breo Ellipta 200 mcg-25 mcg/inh inhalation powder 0 Refills, 12/05/19 13:34:00 EDT Start Date: 12/05/19 Status: Ordered Depo-Provera Contraceptive 150 mg/mL intramuscular suspension 1 mL = 150 mg, Intramuscular, Every 3 months, [facility] [address]-4 Lot [id number] Exp Manuf: Dominique. 1 mL administered IM [...] Refills, Soft Stop, 04/06/20 10:40:00 EDT, Tablet, [facility]/pharmacy #2339, 155, cm, 04/11/19 8:37:00 [...] 3 Refills, Maintenance, 10/10/19 16:17:00 EDT, Tablet, [facility]/pharmacy #2339, 155, cm, 04/11/19 8:37:00 [...] 13:58:00 EDT, Aerosol, Route to Pharmacy Electronically, [id number], [facility]/pharmacy #2339, 155, cm, 04/11/19 8:37:00 EDT, Heig... Start Date: 12/01/19 Status: Ordered triamcinolone 55 mcg/inh nasal spray 2 sprays, Nares, Both, Daily, # 10 Gm, 6 Refills, Maintenance, 12/05/19 14:15:00 EDT, [place], [facility]/pharmacy #2339, 2 sprays Nares, Both [...] tablet, 3 Refills, Maintenance, 12/05/19 13:57:00 EDT,Tablet, [facility]/pharmacy #2339, 1 tablet By Mouth Daily in PM, 155, cm, 04/11/19 8:37:00 EDT, Height, 55.8, kg, 09/15/18 18:40:00 EDT, Dry Weight Start Date: 12/05/19 Status: Ordered ZyrTEC 10 mg oral tablet 1 tablet = 10 mg, By Mouth, Daily, # 90 tablet, 3 Refills, Maintenance, 12/05/19 13:58:00 EDT, Tablet, [facility]/pharmacy #2339, 155, cm, 04/11/19 8:37:00 [...] Effective Dates Health Status Clinical Service Informant Allergies Discharge Diagnosis 04/06/20 Asthma Discharge Diagnosis 04/06/20 Adjustment disorder with anxiety Discharge Diagnosis 04/06/20 Acid reflux Discharge Diagnosis 04/06/20 Patellofemoral disorder Discharge Diagnosis 04/06/20 IBS (irritable bowel syndrome) Discharge Diagnosis 04/06/20 Vaginosis Discharge Diagnosis 04/06/20 Vital Signs Most recent to oldest [Reference Range]: 1 Height 155 cm (04/06/20 12:20 PM) Social History Social History Type Response Smoking Status Never smoker; Tobacc o user in household: No entered on: 07/16/17 Sex
--- OUTSIDE RECORDS SUMMARY | 2024-04-23 22:32 | XMS_ITS | Continuity of Care Document ---
Author Organization [facility] Address [address] [place] [address]- Care Team Providers Care Felting Machine Operator Name Role Phone Nannette Weston NP Primary Care Physician [phone] [facility]counter [facility] Date(s): 04/29/21 - 05/06/21 [facility] [address] [place] [address]- Attending Physician: Not on Staff, Attending MD Referring Physician: Nannette Weston NP Allergies, Adverse Reactions, [...] acel(Tdap) 6 05/19/17 Recorded 1Result Comment: [05/07/2018] [facility] [id number] 2Result Comment: [facility]# 71461-972-73 3Result Comment: [facility]# [id number] 4Result Comment: [10/09/2017] [facility] 82881-440-50 5Result Comment: [08/10/2017] [facility] 0006 4943 01 6Result Comment: [07/16/2017] [facility] Medications Depo-Provera Contraceptive 150 mg/mL intramuscular suspension 1 mL = 150 mg, Intramuscular, Every 3 months, [facility] 19405-095-69 lot [id number] exp 08/2023 administered to left deltoid without incident, # 1 mL, 6 Refills, Maintenance, 04/29/21 12:12:00 EDT, Suspension Start Date: 04/29/21 Status: Ordered EpiPen 2-Bonifacio 0.3 mg injectable kit = 0.3 mg, Intramuscular, Once, If case of allergic emergency., # 1 each, 1 Refills, Soft Stop, 12/24/20 14:57:00 EDT, [facility]/pharmacy #2339, 164, cm, 12/24/20 14:35:00 EDT, Height, 58, kg, 12/11/20 5:24:00 EDT, Dry Weight Start Date: 12/24/20 Status: Ordered famotidine 40 mg oral tablet 1 tablet = 40 mg, By Mouth, Daily at bedtime, # 90 tablet, 3 Refills, Maintenance, 10/10/19 16:17:00 EDT, Tablet, [facility]/pharmacy #2339, 155, cm, 04/11/19 8:37:00 EDT, Height, [...] 13:58:00 EDT, Aerosol, Route to Pharmacy Electronically, [id number], [facility]/pharmacy #2339, 155, cm, 04/11/19 8:37:00 EDT, [place]ig... [...] Gm, 2 Refills, Maintenance, 12/13/20 6:09:00 EDT, [place], [facility]/pharmacy #2339, 2 sprays Nares, Both Daily, 164, cm, 12/07/20 18:05:00 EDT, Height, 58, kg, 12/11/20 5:24:00 EDT, Dry Weight Start Date: 12/13/20 Status: Ordered Vitamin D3 1000 intl units oral tablet 1 tablet = 1,000 International_Units, By Mouth, Daily, # 90 tablet, 3 Refills, Maintenance, 04/25/21 10:47:00 EDT, Tablet, [facility]/pharmacy #2339, 164, cm, 04/25/21 10:29:00 EDT, Height, 58, kg, 215:24:00 EDT, Dry Weight Start Date: 04/25/21 Status: Ordered Xyzal 5 mg oral tablet 1 tablet = 5 mg, By Mouth, Daily in PM, # 30 tablet, 5 Refills, Maintenance, 11/20/20 9:28:00 EDT, Tablet, [facility]/pharmacy #2339, 1 tablet By Mouth Daily in [...]
--- OUTSIDE RECORDS SUMMARY | 2024-04-23 22:32 | XMS_ITS | Continuity of Care Document ---
Author Organization [facility] lt Address [address] [place] [address]- Care Team Providers Care Restoration Technician Name Role Phone Enrico SORENSON, Nannette Tellez Primary Care Physician [phone] [facility]counter [facility] Date(s): 05/14/20 - 06/13/20 [facility] [place] Adult [address] [place] [address]- Allergies, Adverse Reactions, Alerts Substance Reaction Severity [...] [facility] [id number] 2Result Comment: [10/09/2017] [facility] 19605-309-07 3Result Comment: [08/10/2017] [facility] 0006 4943 01 4Result Comment: [07/16/2017] [facility] Medications Breo Ellipta 200 mcg-25 mcg/inh inhalation powder 0 Refills, 12/05/19 13:34:00 EDT Start Date: 12/05/19 Status: Ordered Depo-Provera Contraceptive 150 mg/mL intramuscular suspension 1 mL = 150 mg, Intramuscular, Every 3 months, [facility] [address]-3 Lot [id number] Exp Manuf: Dominique. 1 mL administered IM [...] Refills, Soft Stop, 04/06/20 10:40:00 EDT, Tablet, [facility]/pharmacy #2339, 155, cm, 04/11/19 8:37:00 EDT, [...] 3 Refills, Maintenance, 10/10/19 16:17:00 EDT, Tablet, [facility]/pharmacy #2339, 155, cm, 04/11/19 8:37:00 EDT, [...] 13:58:00 EDT, Aerosol, Route to Pharmacy Electronically, [id number], [facility]/pharmacy #2339, 155, cm, 04/11/19 8:37:00 EDT, [place]ig... Start Date: 12/01/19 Status: Ordered triamcinolone 55 mcg/inh nasal spray 2 sprays, Nares, Both, Daily, # 10 Gm, 6 Refills, Maintenance, 12/05/19 14:15:00 EDT, [place], [facility]/pharmacy #2339, 2 sprays Nares, Both Daily, [...] 5 Refills, Maintenance, 04/19/20 9:08:00 EDT, Tablet, [facility]/pharmacy #2339, 1 tablet By Mouth Daily in PM, 155, cm, 04/06/20 12:20:00 EDT, Height, 55.8, kg, 09/15/18 18:40:00 EDT, Dry Weight Start Date: 04/19/20 Status: Ordered ZyrTEC 10 mg oral tablet 1 tablet = 10 mg, By Mouth, Daily, # 90 tablet, 3 Refills, Maintenance, 12/05/19 13:58:00 EDT, Tablet, [facility]/pharmacy #2339, 155, cm, 04/11/19 8:37:00 EDT, [...]
--- OUTSIDE RECORDS SUMMARY | 2024-04-23 22:32 | XMS_ITS | Continuity of Care Document ---
Author Organization [facility] Address [address] [place] [address]- Care Team Providers Care Social Insurance Specialist Name Role Phone Enrico SORENSON, Nannette Tellez Primary Care Physician [facility] Date[facility]s): 04[facility]21 - 05/15/21 [facility] [address] [place] [address]- Allergies, Adverse Reactions, Alerts Substance Reaction Severity [...] 1Result Comment: [05/07/2018] [facility] [id number] 2Result Comment: [facility]# [phone] 3Result Comment: [facility]# 55231-823-86 4Result Comment: [10/09/2017] [facility] 63021-282-69 5Result Comment: [08/10/2017] [facility] 0006 4943 01 6Result Comment: [07/16/2017] [facility] Medications Depo-Provera Contraceptive 150 mg/mL intramuscular suspension 1 mL = 150 mg, Intramuscular, Every 3 months, [facility] [id number] lot [id number] exp 08/2023 administered to left deltoid without incident, # 1 mL, 6 Refills, Maintenance, 04/29/21 12:12:00 EDT, Suspension Start Date: 04/29/21 Status: Ordered EpiPen 2-Bonifacio 0.3 mg injectable kit = 0.3 mg, Intramuscular, Once, If case of allergic emergency., # 1 each, 1 Refills, Soft Stop, 12/24/20 14:57:00 EDT, [facility]/pharmacy #2339, 164, cm, 12/24/20 14:35:00 [...] 13:58:00 EDT, Aerosol, Route to Pharmacy Electronically, [id number], [facility]39, 155, cm, 04/11/19 8:37:00 [...] Gm, 2 Refills, Maintenance, 12/13/20 6:09:00 EDT, [place], [facility]/pharmacy #2339, 2 sprays Nares, Both Daily, 164, cm, 12/07/20 18:05:00 EDT, Height, 58, kg, 12/11/20 5:24:00 EDT, Dry Weight Start Date: 12/13/20 Status: Ordered Vitamin D3 1000 intl units oral tablet 1 tablet = 1,000 International_Units, By Mouth, Daily, # 90 tablet, 3 Refills, Maintenance, 04/25/21 10:47:00 EDT, Tablet, [facility]/pharmacy #2339, 164, cm, 04/25/21 10:29:00 EDT, [...]
--- OUTSIDE RECORDS SUMMARY | 2024-04-23 22:32 | XMS_ITS | Continuity of Care Document ---
Author Organization [facility] Address [address] [place] [address]- Care Team Providers Care Business Attorney Name Role Phone Callum Duenas DO Primary Care Physician [phone] Encounter [facility] Date(s): 07/08/23 - 07/30/[address] [address]- Encounter Diagnosis Procedure and treatment not carried out for other reasons(Final) - Discharge Disposition: A-D/C Home Attending Physician: [...] vaccine, inactivated 04/21/17 Chris rded SARS-CoV-2 mRNA (kjvsiuf-isrz-yweza) vax 08/22/21 Recorded hepatitis B adult vaccine [...] diphtheria/tetanus/pertussis, acel(DTaP) 07/25/97 Recorded 1Result Comment: [05/07/2018] [facility] [id number] 2Result Comment: [facility]# [phone] 3Result Comment: [facility]# [id number] 4Result Comment: [10/09/2017] [facility] 68518-630-99 5Result Comment: [08/10/2017] [facility] 0006 4943 01 6Result Comment: [07/16/2017] [facility] Medications Depo-Provera Contraceptive 150 mg/mL intramuscular suspension 1 mL = 150 mg, Intramuscular, Every 3 months, bring to clinic to administer, # 1 mL, 2 Refills, Maintenance, 10/11/22 14:49:00 EDT, Suspension, [facility]/pharmacy #2339, 164, cm, 04/16/22 [...] 1 Refills, Soft Stop, 05/20/23 16:13:00 EST, [facility]/pharmacy #2339, 155, cm, 04/21/23 9:31:00 EDT, Height Start Date: 05/20/23 Status: Ordered famotidine 40 mg oral tablet See Instructions, TAKE 1 TABLET BY MOUTH EVERYDAY AT BEDTIME, # 90 tablet, 0 Refills, Maintenance, 06/16/23 9:19:00 EST, [facility]/pharmacy #2339, 155, cm, 04/21/23 9:31:00 EDT, Height Start Date: 06/16/23 Status: Ordered famotidine 40 mg oral tablet 1 tablet = 40 mg, By Mouth, Daily at bedtime, # 90 tablet, 0 Refills, Maintenance, 04/14/22 14:50:00 EDT, Tablet, [facility]/pharmacy #2339, 164, cm, 04/14/22 14:05:00 EDT, Height, 58, kg, 12/11/20 5:24:00 EDT, Dry Weight Start Date: 04/14/22 Stop Date: 07/13/22 Status: Ordered levocetirizine 5 mg oral tablet 1 tablet, By Mouth, Daily in PM, # 90 tablet, 3 Refills, Maintenance, 10/17/21 14:52:00 EDT, [facility]/pharmacy #2339, 1 tablet By Mouth Daily in PM, 164, cm, 10/17/21 14:30:00 EDT, Height, 58, kg, 12/11/20 5:24:00 EDT, Dry Weight Start Date: 10/17/21 Status: Ordered medroxyPROGESTERone 150 mg/mL intramuscular suspension = 150 mg, Intramuscular, Once, administered to left upper arm, IM, without incident lot [id number] exp 01/2024 [id number], 0 Refills, Maintenance, 01/31/22 11:17:00 EDT, Partial [...] 14:52:00 EDT, Aerosol, Route to Pharmacy Electronically, [id number], [facility]/pharmacy #2339, 164, cm, 10/17/21 14:30:00 EDT, Hei... Start Date: 10/17/21 Status: Ordered pseudoephedrine 60 mg oral tablet 1 tablet = 60 mg, By Mouth, Every 6 hours, PRN for congestion, # 40 tablet, 0 Refills, Acute 08/03/23 13:15:00 EST, 07/28/23 12:11:00 EST, Tablet, [facility]/pharmacy #2339, Partial fill upon patient request if the prescription is for a schedule II opioid drKinjal.. Start Date: 07/28/23 Stop Date: 08/03/23 Status: Ordered Spiriva Respimat 1.25 mcg/inh inhalation [...] Gm, 2 Refills, Maintenance, 12/13/20 6:09:00 EDT, [place], [facility]/pharmacy #2339, 2 sprays Nares, [...] Care Member Role: PCP Address: Address: [address] [place] [address]- Care Team Related Persons Name: YOVANY BRICEÑO Address: home [address] [place] [address]
--- OUTSIDE RECORDS SUMMARY | 2024-04-23 22:32 | XMS_ITS | Continuity of Care Document ---
Author Organization [facility] Address [address] [place] [address]- Care Team Providers Care Furnace Stock Inspector Name Role Phone Enrico SORENSON, Nannette Tellez Primary Care Physician [facility] Date[facility]s): 08/16/20 - 09/15/20 [facility] Adult [address] [place] [address]- Attending Physician: AdmTodd qiu Admitting Physician: AdmtrTodd [...] acel(Tdap) 4 05/19/17 Recorded 1Result Comment: [05/07/2018] [facility] [id number] 2Result Comment: [10/09/2017] [facility] [id number] 3Result Comment: [08/10/2017] [facility] 0006 4943 01 4Result Comment: [07/16/2017] [facility] Medications Breo Ellipta 200 mcg-25 mcg/inh [...] 13:58:00 EDT, Aerosol, Route to Pharmacy Electronically, [id number], [facility]/pharmacy #2339, 155, cm, 04/11/19 8:37:00 EDT, Heig... Start Date: 12/01/19 Status: Ordered triamcinolone 55 mcg/inh nasal spray 2 sprays, Nares, Both, Daily, # 10 Gm, 6 Refills, Maintenance, 12/05/19 14:15:00 EDT, [place], [facility]/pharmacy #2339, 2 sprays Nares, Both Daily, 155, [...] 5 Refills, Maintenance, 04/19/20 9:08:00 EDT, Tablet, [facility]/pharmacy #2339, [...]
--- OUTSIDE RECORDS SUMMARY | 2024-04-23 22:32 | XMS_ITS | Continuity of Care Document ---
Author Organization [facility] Address [address] [place] [address]- Care Team Providers Care Welfare Investigator Name Role Phone Enrico SORENSON, Nannette Tellez Primary Care Physician [facility] Date[facility]s): 07/28/19 - 08/04/19 [facility] Adult [address] [place] [address]- [facility] Attending Physician: Not on Staff, Attending MD [...] Recorded 1Result Comment: [05/07/2018] [facility] [address]-54 2Result Comment: [10/09/2017] [facility] 34041-066-96 3Result Comment: [08/10/2017] [facility] 0006 4943 01 4Result Comment: [07/16/2017] [facility] Medications Depo-Provera Contraceptive 150 mg/mL intramuscular suspension 1 mL = 150 mg, Intramuscular, Every 3 months, Needs annual wellness visit for more refills., # 1 mL, 1 Refills, Maintenance, 07/28/19 10:07:00 EST, Suspension, [facility], Depo injection administered on 07/28/19. Pt supplied via pharmacy. Righ... Start Date: 07/28/19 Status: Ordered EpiPen 2-Bonifacio 0.3 mg injectable kit = 0.3 mg, Intramuscular, Once, If case of allergic emergency., # 1 each, 0 Refills, Soft Stop, 02/11/19 9:04:53 EDT Start Date: 02/11/19 Status: Ordered NuLYTELY with Flavor Packs oral powder for reconstitution See Instructions, as directed, # 1 each, 0 Refills, Maintenance, 12/24/18 10:59:00 EDT, as directed Start Date: 12/24/18 Status: Ordered ProAir HFA 90 mcg/inh inhalation aerosol with adapter 2, puffs, Inhalation, Every 6 hours, PRN, # 1 each, Refills 2, Tot. Refills 2, Maintenance, 11/24/18 9:10:44 EDT, Aerosol, Route to Pharmacy Electronically, [id number], [facility]/pharmacy #2339 Start Date: 11/24/18 Status: Ordered ranitidine 150 mg oral capsule 1 capsule = 150 mg, By Mouth, 2 times a day, # 60 capsule, 2 Refills, Maintenance, 07/16/17 10:27:27 Start Date: 07/16/17 Status: Ordered Suprep Bowel Prep Kit oral [...] 14:03:02 EDT, Aerosol, Route to Pharmacy Electronically, [id number], [facility]/pharmacy #2339 Start Date: 11/30/18 Status: Ordered triamcinolone 55 mcg/inh nasal spray 2 sprays, Nares, Both, Daily, # 10 Gm, 6 Refills, Maintenance, 02/21/19 13:16:11 EDT, [place], 2 sprays Nares, Both Daily Start Date: 02/21/19 Status: Ordered Vitamin D3 1000 intl units oral tablet 1 tablet = 1,000 International_Units, By Mouth, Daily, # 90 tablet, 3 Refills, Maintenance, 11/24/18 9:24:09 EDT, Tablet Start Date: 11/24/18 Status: Ordered ZyrTEC 10 mg oral tablet 1 tablet = 10 mg, By Mouth, Daily, # 90 tablet, 3 Refills, Maintenance, 07/28/19 10:09:00 EST, Tablet, [facility]/pharmacy #2339, 155, cm, 04/11/19 8:37:00 EDT, Height, [...]
--- OUTSIDE RECORDS SUMMARY | 2024-04-23 22:32 | XMS_ITS | Continuity of Care Document ---
Author Organization [facility] Address [address] [place] [address]- Care Team Providers Care Contact Worker Name Role Phone Callum Duenas DO Primary Care Physician Encounter [facility] Date(s): 09/02/22 - 10/02/22 [facility] [address] [place] [address]- Attending Physician: Todd Lopez Admitting Physician: Todd Lopez Referring Physician: AdmtrTodd Allergies, Adverse Reactions, Alerts [...] vaccine, inactivated 04/21/17 Chris rded SARS-CoV-2 mRNA (lihohvi-fpbh-uoata) vax 08/22/21 Recorded hepatitis B adult vaccine [...] acel(DTaP) 07/25/97 Recorded 1Result Comment: [05/07/2018] [facility] [id number] 2Result Comment: [facility]# 32880-716-91 3Result Comment: [facility]# 83460-556-21 4Result Comment: [10/09/2017] [facility] 97373-330-95 5Result Comment: [08/10/2017] [facility] 0006 4943 01 6Result Comment: [07/16/2017] [facility] Medications Depo-Provera Contraceptive 150 mg/mL intramuscular suspension 1 mL = 150 mg, Intramuscular, Every 3 months, bring to clinic to administer, # 1 mL, 2 Refills, Maintenance, 10/11/22 14:49:00 EDT, [place], [facility]/pharmacy #2339, 164, cm, 04/16/22 9:16:00 EDT, Height, 58, kg, 12/11/20 5:24:00 EDT, Dry Weight Start Date: 10/11/22 Stop Date: 07/08/23 Status: Ordered Depo-Provera Contraceptive 150 mg/mL intramuscular suspension 1 mL = 150 mg, Intramuscular, Every 3 months, for 90 days, bring to clinic to administer Given in clinic after negative POC preg test Lot [id number] exp 07/23 [facility] [id number] [phone] pt own med IM right [...] 1 Refills, Soft Stop, 10/17/21 14:53:00 EDT, [facility]/pharmacy #2339, 164, cm, 10/17/21 14:30:00 EDT, Height, 58, kg, 12/11/20 5:24:00 EDT, Dry Weight Start Date: 10/17/21 Status: Ordered famotidine 40 mg oral tablet 1 tablet = 40 mg, By Mouth, Daily at bedtime, # 90 tablet, 0 Refills, Maintenance, 04/14/22 14:50:00 EDT, Tablet, [facility]/pharmacy #2339, 164, cm, 04/14/22 14:05:00 EDT, Height, 58, kg, 12/11/20 5:24:00 EDT, Dry Weight Start Date: 04/14/22 Stop Date: 07/13/22 Status: Ordered levocetirizine 5 mg oral tablet 1 tablet, By Mouth, Daily in PM, # 90 tablet, 3 Refills, Maintenance, 10/17/21 14:52:00 EDT, [facility]/pharmacy #2339, 1 tablet By Mouth Daily in PM, 164, cm, 10/17/21 14:30:00 EDT, Height, 58, kg, 12/11/20 5:24:00 EDT, Dry Weight Start Date: 10/17/21 Status: Ordered medroxyPROGESTERone 150 mg/mL intramuscular suspension = 150 mg, Intramuscular, Once, administered to left upper arm, IM, without incident lot [id number] exp 01/2024 [id number], 0 Refills, Maintenance, 01/31/22 11:17:00 EDT, Partial [...] 14:52:00 EDT, Aerosol, Route to Pharmacy Electronically, [id number], [facility]/pharmacy #2339, 164, cm, 10/17/21 14:30:00 EDT, [...] Gm, 2 Refills, Maintenance, 12/13/20 6:09:00 EDT, [place], [facility]/pharmacy #2339, 2 sprays Nares, Both Daily, [...] Care Physician Member Role: PCP Address: Address: [address] [place] [address]- Care Team Related Persons Name: YOVANY BRICEÑO Address: home [address] [place] [address]
--- OUTSIDE RECORDS SUMMARY | 2024-04-23 22:32 | XMS_ITS | Continuity of Care Document ---
Author Organization [facility] Address [address] [place] [address]- Care Team Providers Care Borematic Operator Name Role Phone Daiana BAILEY, Chacha Morrison Primary Care Physician Encounter [facility] Date(s): 07/15/22 - 07/22/22 [facility] [address] [place] [address]- Attending Physician: Chacha Ahmadi MD Allergies, Adverse Reactions, Alerts Substance Reaction [...] vaccine, inactivated 04/21/17 Chris rded SARS-CoV-2 mRNA (nrpnwcy-curo-bocqs) vax 08/22/21 Recorded hepatitis B adult vaccine [...] diphtheria/tetanus/pertussis, acel(DTaP) 07/25/97 Recorded 1Result Comment: [05/07/2018] [facility] [id number] 2Result Comment: [facility]# 19619-344-26 3Result Comment: [facility]# 99301-788-62 4Result Comment: [10/09/2017] [facility] 75124-683-35 5Result Comment: [08/10/2017] [facility] 0006 4943 01 6Result Comment: [07/16/2017] [facility] Medications amoxicillin 500 mg oral capsule 2 capsule = 1,000 mg, By Mouth, 2 times a day, for 14 days, # 56 capsule, 0 Refills, Acute 07/30/2315:01:00 EST, 07/16/22 16:01:00 EST, [facility], Partial fill upon patient request, 164, cm, 07/15/22 12:33:00 EST, Height, 58, kg, 12/11/20 5:... Start Date: 07/16/22 Stop Date: 07/30/22 Status: Ordered clarithromycin 500 mg oral tablet 1 tablet = 500 mg, By Mouth, Every 12 hours, for 14 days, # 28 tablet, 0 Refills, Acute 07/30/22 16:01:00 EST, 07/16/22 16:01:00 EST, Tablet, [facility], Partial fill upon patient request, 164, cm, 07/15/22 12:33:00 EST, Height, 58, kg, ... Start Date: 07/16/22 Stop Date: 07/30/22 Status: Ordered Depo-Provera Contraceptive 150 mg/mL intramuscular suspension 1 mL = 150 mg, Intramuscular, Every 3 months, bring to clinic to administer, # 1 mL, 2 Refills, Maintenance, 10/11/22 14:49:00 EDT, Suspension, [facility]/pharmacy #2339, 164, cm, 04/16/22 9:16:00 EDT, Height, 58, kg, 12/11/20 5:24:00 EDT, Dry Weight Start Date: 10/11/22 Stop Date: 07/08/23 Status: Ordered Depo-Provera Contraceptive 150 mg/mL intramuscular suspension 1 mL = 150 mg, Intramuscular, Every 3 months, for 90 days, bring to clinic to administer Given in clinic after negative POC preg test Lot [id number] exp 07/23 [facility] [id number] [phone] pt own med IM right [...] 1 Refills, Soft Stop, 10/17/21 14:53:00 EDT, [facility]/pharmacy #2339, 164, cm, 10/17/21 14:30:00 EDT, Height, 58, kg, 12/11/20 5:24:00 EDT, Dry Weight Start Date: 10/17/21 Status: Ordered famotidine 40 mg oral tablet 1 tablet = 40 mg, By Mouth, Daily at bedtime, # 90 tablet, 0 Refills, Maintenance, 04/14/22 14:50:00 EDT, Tablet, [facility]/pharmacy #2339, 164, cm, 04/14/22 14:05:00 EDT, Height, 58, kg, 12/11/20 5:24:00 EDT, Dry Weight Start Date: 04/14/22 Stop Date: 07/13/22 Status: Ordered levocetirizine 5 mg oral tablet 1 tablet, By Mouth, Daily in PM, # 90 tablet, 3 Refills, Maintenance, 10/17/21 14:52:00 EDT, [facility]/pharmacy #2339, 1 tablet By Mouth Daily in PM, 164, cm, 10/17/21 14:30:00 EDT, Height, 58, kg, 12/11/20 5:24:00 EDT, Dry Weight Start Date: 10/17/21 Status: Ordered medroxyPROGESTERone 150 mg/mL intramuscular suspension = 150 mg, Intramuscular, Once, administered to left upper arm, IM, without incident lot [id number] exp 01/2024 [id number], 0 Refills, Maintenance, 01/31/22 11:17:00 EDT, Partial [...] 14:52:00 EDT, Aerosol, Route to Pharmacy Electronically, [id number], [facility]/pharmacy #2339, 164, cm, 10/17/21 14:30:00 EDT, Hei... [...] Gm, 2 Refills, Maintenance, 12/13/20 6:09:00 EDT, [place], [facility]/pharmacy #2339, 2 sprays Nares, Both Daily, 164, cm, 12/07/20 18:05:00 EDT, Height, 58, kg, 12/11/20 5:24:00 EDT, Dry Weight Start Date: 12/13/20 Status: Ordered Vitamin D3 1000 intl units oral tablet 1 tablet = 1,000 International_Units, By Mouth, Daily, # 90 tablet, 0 Refills, Maintenance, 04/14/22 14:51:00 EDT, Tablet, [facility]/pharmacy #2339, 164, cm, 04/14/22 14:05:00 EDT, Height, 58, kg, 215:24:00 EDT, Dry Weight Start Date: 04/14/22 Stop Date: 07/13/22 Status: Ordered Vitamin D3 50,000 intl units oral capsule 1 capsule = 1,250 mcg, By Mouth, Every week, new start 05/14/22, # 9 capsule, 0 Refills, Maintenance, 05/13/22 20:19:00 EST, [place]aps[place], [facility]/pharmacy #2339, Partial fill upon patient request if [...] deficiency Confirmed Active 1AINE 2[place], grimaldo Vital Signs Most recent to oldest [Reference Range]: 1 Height 164 cm (07/15/22 12:33 PM) Weight 55.3 kg (07/15/22 12:33 PM) Oxygen Saturation [94-100 %] 98 % (07/15/22 12:33 PM) Pulse Rate [55-90 bpm] 98 bpm *H* (07/15/22 12:33 PM) Body Mass Index [18.5-24.99 kg/m2] 20.56 kg/m2 (07/15/22 12:33 PM) Blood Pressure [90-138/55-84 mm Hg] 118/ 71mm Hg (07/15/22 12:33 PM) Blood pressure sites Arm, right (07/15/22 12:33 PM) Social History Social History Type Response Smoking Status Never smoker; Tobacc o user in household: No entered on: 07/16/17 Sex Patient Care team information Care Team Personnel Name: Daiana BAILEY, Chacha Morrison Position: [facility] Primary Care Physician Member Role: PCP Address: Address: [address] [place] [address]- Care Team Related Persons Name: YOVANY BRICEÑO Address: home [address], [place] [address]
--- OUTSIDE RECORDS SUMMARY | 2024-04-23 22:32 | XMS_ITS | Continuity of Care Document ---
Author Organization [facility] Address [address] [place] [address]- Care Team Providers Care Weed Eradicator Name Role Phone Enrico SORENSON, Nannette Tellez Primary Care Physician [facility] Date[facility]s): 02/04/21 - 02/11/21 [facility] Adult [address] [place] [address]- Attending Physician: Lauro BAILEY, Nicolas Jimenez Allergies, [...] tetanus/diphtheria/pertussis, acel(Tdap) 6 05/19/17 Recorded 1Result Comment: [facility]# [id number] 2Result Comment: [facility]# 57224-773-60 3Result Comment: [10/09/2017] [facility] 21249-099-17 4Result Comment: [05/07/2018] [facility] [id number] 5Result Comment: [08/10/2017] [facility] 0006 4943 01 6Result Comment: [07/16/2017] [facility] EpiPen 2-Bonifacio 0.3 mg injectable kit = [...] 13:58:00 EDT, Aerosol, Route to Pharmacy Electronically, [id number], [facility]/pharmacy #2339, 155, cm, 04/11/19 8:37:00 EDT, [place]... Start Date: 12/01/19 Status: Ordered triamcinolone 55 mcg/inh nasal spray 2 sprays, Nares, Both, Daily, # 10 Gm, 2 Refills, Maintenance, 12/13/20 6:09:00 EDT, [place], [facility]/pharmacy #2339, 2 sprays Nares, Both Daily, 164, cm, 12/07/20 18:05:00 EDT, Height, 58, kg, 12/11/20 5:24:00 EDT, Dry Weight Start Date: 12/13/20 Status: Ordered Vitamin D3 1000 intl units oral tablet 1 tablet = 1,000 International_Units, By Mouth, Daily, # 90 tablet, 3 Refills, Maintenance, 12/24/20 14:57:00 EDT, Tablet, [facility]/pharmacy #2339, 164, cm, 12/24/20 14:35:00 EDT, Height, 58, kg, 215:24:00 EDT, Dry Weight Start Date: 12/24/20 Status: Ordered Xyzal 5 mg oral tablet 1 tablet = 5 mg, By Mouth, Daily in PM, # 30 tablet, 5 Refills, Maintenance, 11/20/20 9:28:00 EDT, Tablet, [facility]/pharmacy #2339, 1 tablet By Mouth Daily in [...]
--- OUTSIDE RECORDS SUMMARY | 2024-04-23 22:33 | XMS_ITS | Continuity of Care Document ---
Demographics Address [address] [facility] [address] [facility] [place] [address] Preferred Language so Marital Status Tenriism Affiliation None Race Black or Kenya rican Additional Race(s) Black Ethnic Group Not or Lati no Author Organization [facility] Address [address] [place] [address]- Care Team Providers Care Anesthesiologist Name Role Phone Enrico SORENSON, Nannette Tellez Primary Care Physician [facility] Date[facility]s): 01/18/20 - 01/25/20 [facility] Adult [address] [place] [address]- [facility] Attending Physician: Jany Patel NP Allergies, Adverse Reactions, Alerts Substance Reaction [...] [05/07/2018] [facility] [address]-61 2Result Comment: [10/09/2017] [facility] 68079-480-91 3Result Comment: [08/10/2017] [facility] 0006 4943 01 4Result Comment: [07/16/2017] [facility] Medications Breo Ellipta 200 mcg-25 mcg/inh inhalation powder 0 Refills, 12/05/19 13:34:00 EDT Start Date: 12/05/19 Status: Ordered Depo-Provera Contraceptive 150 mg/mL intramuscular suspension 1 mL = 150 mg, Intramuscular, Every 3 months, [facility] [address]-6, Exp 09/2021, [facility]. 1 mL administered IM in left deltoid, pt tolerated well., # 1 mL, 6 Refills, Maintenance, 12/05/19 14:24:00 EDT, Suspension, [facility]/pharmacy #2339, 155, cm, 10... Start Date: [...] 3 Refills, Maintenance, 10/10/19 16:17:00 EDT, Tablet, [facility]/pharmacy #2339, 155, cm, 04/11/19 8:37:00 EDT, Height, 55.8, kg, 09/15/18 18:40:00 EDT, Dry Weight Start Date: 10/10/19 Stop Date: 10/04/20 Status: Ordered metroNIDAZOLE 0.75% topical gel 1 application, Vaginally, 2 times a day, # 45 Gm, 0 Refills, Maintenance, 12/05/19 14:18:00 EDT, [facility]/pharmacy #2339, 1 application Vaginally 2 times [...] 13:58:00 EDT, Aerosol, Route to Pharmacy Electronically, [id number], [facility]/pharmacy #2339, 155, cm, 04/11/19 8:37:00 EDT, [place]... Start Date: 12/01/19 Status: Ordered triamcinolone 55 mcg/inh nasal spray 2 sprays, Nares, Both, Daily, # 10 Gm, 6 Refills, Maintenance, 12/05/19 14:15:00 EDT, [place], [facility], 2 sprays Nares, Both Daily, [...]
--- OUTSIDE RECORDS SUMMARY | 2024-04-23 22:33 | XMS_ITS | Continuity of Care Document ---
Author Organization [facility] Cali Ramses Address [address] [place] [address]- Care Team Providers Care Hadoop Administrator Name Role Phone Enrico SORENSON, Nannette Tellez Primary Care Physician [place] [facility] [place] 10/07/19 - 10/14/19 [facility] Adult [address] [place] [address]- [facility] Encounter Diagnosis Dysuria(Discharge Diagnosis) - 10/07/19 Attending Physician: Brigitte SORENSON, Elysia Allergies, Adverse Reactions, Alerts Substance Reaction Severity [...] Recorded 1Result Comment: [05/07/2018] [facility] [id number] 2Result Comment: [10/09/2017] [facility] 94089-073-61 3Result Comment: [08/10/2017] [facility] [phone] 01 4Result Comment: [07/16/2017] [facility] Medications clindamycin topical 100 mg suppository 1 supp = 100 mg, Vaginally, Daily at bedtime, for 3 days, # 3 supp, 0 Refills, Acute 10/17/19 11:42:00 EDT, 10/14/19 11:42:00 EDT, Suppository, [facility]/pharmacy #2339, 1 supp Vaginally Daily at bedtime,x3 days, 155, cm, 04/11/19 8:37:00 EDT, Height, 55.8,... Start Date: 10/14/19 Stop Date: 10/17/19 Status: Ordered Depo-Provera Contraceptive 150 mg/mL intramuscular suspension 1 mL = 150 mg, Intramuscular, Every 3 months, Needs annual wellness visit for more refills. Pt willschedule appt today at check out. Admin 1 mL IM left deltoid, [facility] [id number], Exp 04/2021, Lot [id number], Mary Jo Fox. Pt tolerated well., # 1 mL,... Start [...] 3 Refills, Maintenance, 10/10/19 16:17:00 EDT, Tablet, [facility]/pharmacy #2339, 155, cm, 04/11/19 8:37:00 EDT, Height, 55.8, kg, 09/15/18 18:40:00 EDT, Dry Weight Start Date: 10/10/19 Stop Date: 10/04/20 Status: Ordered metroNIDAZOLE 0.75% topical gel 1 application, Topically, Daily at bedtime, # 45 Gm, 0 Refills, Maintenance, 10/12/19 15:29:00 EDT,Gel, [facility]/pharmacy #2339, 1 application Topically Daily at bedtime,x7 [...] 9:10:44 EDT, Aerosol, Route to Pharmacy Electronically, [id number], [facility]/pharmacy #2339 Start Date: 11/24/18 Status: Ordered Suprep Bowel Prep Kit oral liquid 177 mL, By Mouth, Once, Take the first 6 oz bottle the evening before colonoscopy, and the second 6oz bottle the morning of colonoscopy., # 354 mL, 0 Refills, Soft Stop, 12/28/18:28: EDT, 177 mLBy Mouth Once,Instr:Take the first 6 oz bottle the... Start Date: 12/28/18 Status: Ordered Symbicort 160mcg/4.5mcg Inhaler 2, puffs, Inhalation, 2 times a day, rinse mouth and throat after use, # 1 each, Refills 1, Tot. Refills 1, Maintenance, 11/30/18 14:03:02 EDT, Aerosol, Route to Pharmacy Electronically, [id number], [facility]/pharmacy #2339 Start Date: 11/30/18 Status: Ordered triamcinolone 55 mcg/inh nasal spray 2 sprays, Nares, Both, Daily, # 10 Gm, 6 Refills, Maintenance, 02/21/19 13:16:11 EDT, [place], 2 sprays Nares, Both Daily Start Date: 02/21/19 Status: Ordered Vitamin D3 1000 intl units oral tablet 1 tablet = 1,000 International_Units, By Mouth, Daily, # 90 tablet, 3 Refills, Maintenance, 11/24/18 9:24:09 EDT, Tablet Start Date: 11/24/18 Status: Ordered ZyrTEC 10 mg oral tablet 1 tablet = 10 mg, By Mouth, Daily, # 90 tablet, 3 Refills, Maintenance, 07/28/19 10:09:00 EST, Tablet, [facility]/pharmacy #2339, 155, cm, 04/11/19 8:37:00 [...] Diagnosis Diagnosis Type Effective Dates Health Status Clini chris Service Informant Dysuria Discharge Diagnosis 10/07/19 Social History Social History Type Response Smoking Status Never smoker; Tobacc o user in household: No entered on: 07/16/17 Sex
--- OUTSIDE RECORDS SUMMARY | 2024-04-23 22:33 | XMS_ITS | Continuity of Care Document ---
Author Organization [facility] Address [address] [place] [address]- Care Team Providers Care Sign Installer Name Role Phone Henrique Callum MONTENEGRO Primary Care Physician [place] [facility] [place] 08/28/22 - 09/27/22 [facility] [address] [place] [address]- Attending Physician: Admtr, Todd Admitting Physician: Admtr, Todd Referring Physician: Admtr, [...] vaccine, inactivated 04/21/17 Chris rded SARS-CoV-2 mRNA (uzjlrvh-jkln-awllq) vax 08/22/21 Recorded hepatitis B adult vaccine [...] diphtheria/tetanus/pertussis, acel(DTaP) 07/25/97 Recorded 1Result Comment: [05/07/2018] [facility] [address]-71 2Result Comment: [facility]# [id number] 3Result Comment: [facility]# [id number] 4Result Comment: [10/09/2017] [facility] [id number] 5Result Comment: [08/10/2017] [facility] 0006 4943 01 6Result Comment: [07/16/2017] [facility] Medications Depo-Provera Contraceptive 150 mg/mL intramuscular suspension 1 mL = 150 mg, Intramuscular, Every 3 months, bring to clinic to administer, # 1 mL, 2 Refills, Maintenance, 10/11/22 14:49:00 EDT, Suspension, [facility]/pharmacy #2339, 164, cm, 04/16/22 9:16:00 EDT, Height, 58, kg, 12/11/20 5:24:00 EDT, Dry Weight Start Date: 10/11/22 Stop Date: 07/08/23 Status: Ordered Depo-Provera Contraceptive 150 mg/mL intramuscular suspension 1 mL = 150 mg, Intramuscular, Every 3 months, for 90 days, bring to clinic to administer Given in clinic after negative POC preg test Lot [id number] exp 07/23 [facility] [phone] pt own med IM right [...] 1 Refills, Soft Stop, 10/17/21 14:53:00 EDT, [facility]/pharmacy #2339, 164, cm, 10/17/21 14:30:00 EDT, Height, 58, kg, 12/11/20 5:24:00 EDT, Dry Weight Start Date: 10/17/21 Status: Ordered famotidine 40 mg oral tablet 1 tablet = 40 mg, By Mouth, Daily at bedtime, # 90 tablet, 0 Refills, Maintenance, 04/14/22 14:50:00 EDT, Tablet, [facility]/pharmacy #2339, 164, cm, 04/14/22 14:05:00 EDT, Height, 58, kg, 12/11/20 5:24:00 EDT, Dry Weight Start Date: 04/14/22 Stop Date: 07/13/22 Status: Ordered levocetirizine 5 mg oral tablet 1 tablet, By Mouth, Daily in PM, # 90 tablet, 3 Refills, Maintenance, 10/17/21 14:52:00 EDT, [facility]/pharmacy #2339, 1 tablet By Mouth Daily in PM, 164, cm, 10/17/21 14:30:00 EDT, Height, 58, kg, 12/11/20 5:24:00 EDT, Dry Weight Start Date: 10/17/21 Status: Ordered medroxyPROGESTERone 150 mg/mL intramuscular suspension = 150 mg, Intramuscular, Once, administered to left upper arm, IM, without incident lot [id number] exp 01/2024 [id number], 0 Refills, Maintenance, 01/31/22 11:17:00 EDT, Partial [...] 14:52:00 EDT, Aerosol, Route to Pharmacy Electronically, [id number], [facility]/pharmacy #2339, 164, cm, 10/17/21 [...] Gm, 2 Refills, Maintenance, 12/13/20 6:09:00 EDT, [place], [facility]/pharmacy #2339, 2 sprays Nares, [...] 0 Refills, Maintenance, 04/14/22 14:51:00 EDT, Tablet, [facility]/pharmacy #2339, 164, cm, 04/14/22 [...] Team Personnel Name: Callum Duenas DO Position: [facility] Primary Care Physician Member Role: PCP Address: Address: [address] [place] [address]- Care Team Related Persons Name: YOVANY BRICEÑO Address: home [address] [place] [address] [place] [address]
--- OUTSIDE RECORDS SUMMARY | 2024-04-23 22:33 | XMS_ITS | Continuity of Care Document ---
Author Organization [facility] Address [address] [place] [address]- Care Team Providers Care X Ray Operator Name Role Phone Enrico SORENSON, Nannette Tellez Primary Care Physician [facility]counter [facility] Date(s): 01/31/22 - 02/07/22 [facility] [address] [place] [address]- Attending Physician: Not on Staff, Attending MD [...] acel(Tdap) 6 05/19/17 Recorded 1Result Comment: [05/07/2018] [facility] [id number] 2Result Comment: [facility]# [id number] 3Result Comment: [facility]# [id number] 4Result Comment: [10/09/2017] [facility] 57688-547-07 5Result Comment: [08/10/2017] [facility] 0006 4943 01 6Result Comment: [07/16/2017] [facility] Medications Depo-Provera Contraceptive = 150 mg, Intramuscular, Once, Right Deltoid, 0 Refills, Maintenance, 10/30/21 10:51:00 EDT, Partial fill upon patient request if the prescription is for a schedule II opioid drug. Start Date: 10/30/21 Status: Ordered Depo-Provera Contraceptive 150 mg/mL intramuscular suspension 1 mL = 150 mg, Intramuscular, Every 3 months, [facility] 19951-149-35 lot [id number] exp 08/2023 administered to left deltoid without [...] 3 Refills, Maintenance, 10/10/19 16:17:00 EDT, Tablet, [facility]/pharmacy #2339, 155, cm, 04/11/19 [...] left upper arm, IM, without incident lot [id number] exp 01/2024 [id number], 0 Refills, Maintenance, 01/31/22 11:17:00 EDT, Partial [...] 14:52:00 EDT, Aerosol, Route to Pharmacy Electronically, [id number], [facility]/pharmacy #2339, 164, cm, [...] Gm, 2 Refills, Maintenance, 12/13/20 6:09:00 EDT, [place], [facility]/pharmacy #2339, 2 sprays [...]
--- OUTSIDE RECORDS SUMMARY | 2024-04-23 22:33 | XMS_ITS | Continuity of Care Document ---
Author Organization [facility] Ramses Address [address] [place] [address]- Care Team Providers Care Log Preparer Name Role Phone Enrico SORENSON, Nannette Tellez Primary Care Physician [facility]counter [facility] Date(s): 01/18/20 - 02/17/20 [facility] Adult [address] [place] [address]- [facility] Attending Physician: Admtr, Perry8 Admitting Physician: AdmtrTodd Referring Physician: Admtr, Ar8 [...] acel(Tdap) 4 05/19/17 Recorded 1Result Comment: [05/07/2018] [facility] [id number] 2Result Comment: [10/09/2017] [facility] 06240-118-63 3Result Comment: [08/10/2017] [facility] 0006 4943 01 4Result Comment: [07/16/2017] [facility] Medications Breo Ellipta 200 mcg-25 mcg/inh inhalation powder 0 Refills, 12/05/19 13:34:00 EDT Start Date: 12/05/19 Status: Ordered Depo-Provera Contraceptive 150 mg/mL intramuscular suspension 1 mL = 150 mg, Intramuscular, Every 3 months, [facility] [address]-5, Exp 09/2021, Mary Jo Fox. 1 mL administered IM in left deltoid, pt tolerated well., # 1 mL, 6 Refills, Maintenance, 12/05/19 14:24:00 EDT, Suspension, [facility]/pharmacy [facility]39, 155, cm, 10... Start Date: 12/05/19 [...] 3 Refills, Maintenance, 10/10/19 16:17:00 EDT, Tablet, [facility]/pharmacy #2339, 155, cm, 04/11/19 8:37:00 EDT, Height, [...] 13:58:00 EDT, Aerosol, Route to Pharmacy Electronically, [id number], [facility]/pharmacy #2339, 155, cm, 04/11/19 8:37:00 EDT, [place]... Start Date: 12/01/19 Status: Ordered triamcinolone 55 mcg/inh nasal spray 2 sprays, Nares, Both, Daily, # 10 Gm, 6 Refills, Maintenance, 12/05/19 14:15:00 EDT, [place], [facility], 2 sprays Nares, Both Daily, [...]
--- OUTSIDE RECORDS SUMMARY | 2024-04-23 22:33 | XMS_ITS | Continuity of Care Document ---
Author Organization [facility] Address [address] [place] [address]- Care Team Providers Care Brain Surgeon Name Role Phone Callum Duenas DO Primary Care Physician [phone] [place] [facility] [place](s[place] 05/20/23 - 06/19/23 [facility] [address] [place] [address]- Allergies, Adverse Reactions, Alerts Substance Reaction Severity [...] vaccine, inactivated 04/21/17 Chris rded SARS-CoV-2 mRNA (pjalnqk-vvrj-dphia) vax 08/22/21 Recorded hepatitis B adult vaccine [...] diphtheria/tetanus/pertussis, acel(DTaP) 07/25/97 Recorded 1Result Comment: [05/07/2018] [facility] [id number] 2Result Comment: [facility]# [id number] 3Result Comment: [facility]# [id number] 4Result Comment: [10/09/2017] [facility] 52350-863-35 5Result Comment: [08/10/2017] [facility] 0006 4943 01 6Result Comment: [07/16/2017] [facility] Medications Depo-Provera Contraceptive 150 mg/mL intramuscular suspension 1 mL = 150 mg, Intramuscular, Every 3 months, bring to clinic to administer, # 1 mL, 2 Refills, Maintenance, 10/11/22 14:49:00 EDT, Suspension, [facility]/pharmacy #2339, 164, cm, 04/16/22 9:16:00 [...] 1 Refills, Soft Stop, 05/20/23 16:13:00 EST, [facility]/pharmacy #2339, 155, cm, 04/21/23 9:31:00 EDT, Height Start Date: 05/20/23 Status: Ordered famotidine 40 mg oral tablet See Instructions, TAKE 1 TABLET BY MOUTH EVERYDAY AT BEDTIME, # 90 tablet, 0 Refills, Maintenance, 06/16/23 9:19:00 EST, [facility]/pharmacy #2339, 155, cm, 04/21/23 9:31:00 EDT, Height Start Date: 06/16/23 Status: Ordered famotidine 40 mg oral tablet 1 tablet = 40 mg, By Mouth, Daily at bedtime, # 90 tablet, 0 Refills, Maintenance, 04/14/22 14:50:00 EDT, Tablet, [facility]/pharmacy #2339, 164, cm, 04/14/22 14:05:00 EDT, Height, 58, kg, 12/11/20 5:24:00 EDT, Dry Weight Start Date: 04/14/22 Stop Date: 07/13/22 Status: Ordered levocetirizine 5 mg oral tablet 1 tablet, By Mouth, Daily in PM, # 90 tablet, 3 Refills, Maintenance, 10/17/21 14:52:00 EDT, [facility]/pharmacy #2339, 1 tablet By Mouth Daily in PM, 164, cm, 10/17/21 14:30:00 EDT, Height, 58, kg, 12/11/20 5:24:00 EDT, Dry Weight Start Date: 10/17/21 Status: Ordered medroxyPROGESTERone 150 mg/mL intramuscular suspension = 150 mg, Intramuscular, Once, administered to left upper arm, IM, without incident lot [id number] exp 01/2024 [id number], 0 Refills, Maintenance, 01/31/22 11:17:00 EDT, Partial [...] 14:52:00 EDT, Aerosol, Route to Pharmacy Electronically, [id number], [facility]/pharmacy #2339, 164, cm, 10/17/21 14:30:00 [...] Gm, 2 Refills, Maintenance, 12/13/20 6:09:00 EDT, [place], [facility]/pharmacy #2339, 2 sprays Nares, [...] 0 Refills, Maintenance, 04/14/22 14:51:00 EDT, Tablet, [facility]/pharmacy #2339, 164, cm, 04/14/22 14:05:00 EDT, Height, 58, kg, :24:00 EDT, Dry Weight Start Date: 04/14/22 Stop Date: 07/13/22 Status: Ordered Vitamin D3 50,000 intl units oral capsule 1 capsule = 1,250 mcg, By Mouth, Every week, new start 05/14/22, # 9 capsule, 0 Refills, Maintenance, 05/13/22 20:19:00 EST, [place], [facility], Partial fill upon patient request if the [...] Team Personnel Name: Callum Duenas DO Position: [facility] Physician - Primary Care Member Role: PCP Address: Address: [address] [place] [phone]- Care Team Related Persons Name: YOVANY BRICEÑO Address: home [address] [facility] [facility] [facility] [address] [place] [address]
--- OUTSIDE RECORDS SUMMARY | 2024-04-23 22:33 | XMS_ITS | Continuity of Care Document ---
Author Organization [facility] Address [address] [place] [address]- Care Team Providers Care Senior Ui Ux Developer Name Role Phone Callum Duenas DO Primary Care Physician [phone] [place] [facility] [place] - 06/04/[address] [address] Attending Physician: Callum Duenas DO Admitting [...] vaccine, inactivated 04/21/17 Chris rded SARS-CoV-2 mRNA (ybthkgr-gagf-qwrce) vax 08/22/21 Recorded hepatitis B adult vaccine [...] diphtheria/tetanus/pertussis, acel(DTaP) 07/25/97 Recorded 1Result Comment: [05/07/2018] [facility] [id number] 2Result Comment: [facility]# [id number] 3Result Comment: [facility]# [id number] 4Result Comment: [10/09/2017] [facility] 67901-220-86 5Result Comment: [08/10/2017] [facility] 0006 4943 01 6Result Comment: [07/16/2017] [facility] Medications Depo-Provera Contraceptive 150 mg/mL intramuscular suspension 1 mL = 150 mg, Intramuscular, Every 3 months, bring to clinic to administer, # 1 mL, 2 Refills, Maintenance, 10/11/22 14:49:00 EDT, Suspension, [facility]/pharmacy #2339, 164, cm, 04/16/22 9:16:00 EDT, [...] 1 Refills, Soft Stop, 05/20/23 16:13:00 EST, [facility]/pharmacy #2339, 155, cm, 04/21/23 9:31:00 EDT, Height Start Date: 05/20/23 Status: Ordered famotidine 40 mg oral tablet 1 tablet = 40 mg, By Mouth, Daily at bedtime, # 90 tablet, 0 Refills, Maintenance, 04/14/22 14:50:00 EDT, Tablet, [facility]/pharmacy #2339, 164, cm, 04/14/22 14:05:00 EDT, Height, 58, kg, 12/11/20 5:24:00 EDT, Dry Weight Start Date: 04/14/22 Stop Date: 07/13/22 Status: Ordered famotidine 40 mg oral tablet See Instructions, TAKE 1 TABLET BY MOUTH EVERYDAY AT BEDTIME, # 90 tablet, 0 Refills, Maintenance, 03/16/23 8:38:00 EDT, [facility] [id number], 155, cm, 09/02/22 17:49:00 EST, Height Start Date: 03/16/23 Status: Ordered levocetirizine 5 mg oral tablet 1 tablet, By Mouth, Daily in PM, # 90 tablet, 3 Refills, Maintenance, 10/17/21 14:52:00 EDT, [facility]/pharmacy #2339, 1 tablet By Mouth Daily in PM, 164, cm, 10/17/21 14:30:00 EDT, Height, 58, kg, 12/11/20 5:24:00 EDT, Dry Weight Start Date: 10/17/21 Status: Ordered medroxyPROGESTERone 150 mg/mL intramuscular suspension = 150 mg, Intramuscular, Once, administered to left upper arm, IM, without incident lot [id number] exp 01/2024 [id number], 0 Refills, Maintenance, 01/31/22 11:17:00 EDT, Partial [...] 14:52:00 EDT, Aerosol, Route to Pharmacy Electronically, [id number], [facility]/pharmacy #2339, 164, cm, 10/17/21 14:30:00 EDT, [...] Gm, 2 Refills, Maintenance, 12/13/20 6:09:00 EDT, [place], [facility]/pharmacy #2339, 2 sprays Nares, Both Daily, [...] 0 Refills, Maintenance, 04/14/22 14:51:00 EDT, Tablet, [facility]/pharmacy #2339, 164, cm, 04/14/22 14:05:00 EDT, Height, 58, kg, :24:00 EDT, Dry Weight Start Date: 04/14/22 Stop Date: 07/13/22 Status: Ordered Vitamin D3 50,000 intl units oral capsule 1 capsule = 1,250 mcg, By Mouth, Every week, new start 05/14/22, # 9 capsule, 0 Refills, Maintenance, 05/13/22 20:19:00 EST, Capsule, [facility]/pharmacy #9453, Partial fill upon patient request if the [...] Primary Care Member Role: PCP Address: Address: [address] [place] [address]- Care Team Related Persons Name: YOVANY BRICEÑO Address: home [address] [place] [address]
--- OUTSIDE RECORDS SUMMARY | 2024-04-23 22:33 | XMS_ITS | Continuity of Care Document ---
Author Organization [facility] Cali Ramses Address [address] [place] [address]- Care Team Providers Care Suspect Artist Name Role Phone Enrico SORENSON, Nannette Tellez Primary Care Physician [facility] Date(s): 01/06/20 - 02/05/20 [facility] Adult [address] [place] [address]- [facility] Allergies, Adverse Reactions, Alerts Substance Reaction Severity [...] acel(Tdap) 4 05/19/17 Recorded 1Result Comment: [05/07/2018] [facility] [id number] 2Result Comment: [10/09/2017] [facility] 87406-210-46 3Result Comment: [08/10/2017] [facility] 0006 4943 01 4Result Comment: [07/16/2017] [facility] Medications Breo Ellipta 200 mcg-25 mcg/inh inhalation powder 0 Refills, 12/05/19 13:34:00 EDT Start Date: 12/05/19 Status: Ordered Depo-Provera Contraceptive 150 mg/mL intramuscular suspension 1 mL = 150 mg, Intramuscular, Every 3 months, [facility] [address]-5, Exp 09/2021, [facility]. 1 mL administered IM in left deltoid, pt tolerated well., # 1 mL, 6 Refills, Maintenance, 12/05/19 14:24:00 EDT, Suspension, [facility]/pharmacy #2339, 155, cm, 10... Start Date: [...] 3 Refills, Maintenance, 10/10/19 16:17:00 EDT, Tablet, [facility]/pharmacy #2339, 155, cm, 04/11/19 8:37:00 EDT, Height, 55.8, kg, 09/15/18 18:40:00 EDT, Dry Weight Start Date: 10/10/19 Stop Date: 10/04/20 Status: Ordered Keflex monohydrate 500 mg oral capsule 1 capsule = 500 mg, By Mouth, 3 times a day, for 10 days, # 30 capsule, 0 Refills, Acute 02/14/20 0:34:00 EDT, 02/04/20 0:34:00 EDT, Capsule, [facility]/pharmacy #2339, 155, cm, 04/11/19 8:37:00 EDT, Height, 55.8, kg, 09/15/18 18:40:00 EDT, Dry Weight Start Date: 02/04/20 Stop Date: 02/14/20 Status: Ordered metroNIDAZOLE 0.75% topical gel 1 application, Vaginally, 2 times a day, # 45 Gm, 0 Refills, Maintenance, 12/05/19 14:18:00 EDT, [facility]/pharmacy #2339, 1 application Vaginally 2 times a [...] 13:58:00 EDT, Aerosol, Route to Pharmacy Electronically, [id number], [facility]/pharmacy #2339, 155, cm, 04/11/19 8:37:00 EDT, [place]... Start Date: 12/01/19 Status: Ordered triamcinolone 55 mcg/inh nasal spray 2 sprays, Nares, Both, Daily, # 10 Gm, 6 Refills, Maintenance, 12/05/19 14:15:00 EDT, [place], [facility]/pharmacy #2339, 2 sprays Nares, Both [...] tablet, 3 Refills, Maintenance, 12/05/19 13:57:00 EDT,Tablet, [facility]/pharmacy #2339, 1 tablet By Mouth Daily in PM, 155, cm, 04/11/19 8:37:00 EDT, Height, 55.8, kg, 09/15/18 18:40:00 EDT, Dry Weight Start Date: 12/05/19 Status: Ordered ZyrTEC 10 mg oral tablet 1 tablet = 10 mg, By Mouth, Daily, # 90 tablet, 3 Refills, Maintenance, 12/05/19 13:58:00 EDT, Tablet, [facility]/pharmacy #2339, 155, cm, 04/11/19 8:37:00 [...]
--- OUTSIDE RECORDS SUMMARY | 2024-04-23 22:33 | XMS_ITS | Continuity of Care Document ---
Author Organization [facility] Cali Ramses lt Address [address] [place] [address]- Care Team Providers Care Toxicologist Name Role Phone Enrico SORENSON, Nannette Tellez Primary Care Physician En[facility] Date(s): 12/24/20 - 12/31/20 [facility] Adult [address] [place] [address]- Encounter Diagnosis Well adult exam(Discharge Diagnosis) - 12/24/20 Asthma, moderate persistent(Discharge Diagnosis) - 12/24/20 Urolithiasis(Discharge Diagnosis) - 12/24/20 Personal history of kidney stones(Discharge Diagnosis) - 12/24/20 Acid reflux(Discharge Diagnosis) - 12/24/20 Adjustment disorder with anxiety(Discharge Diagnosis) - 12/24/20 Attending Physician: Tati Okeefe NP Referring Physician: Nannette Weston NP Allergies, Adverse [...] 4 05/19/17 Recorded 1Result Comment: [05/07/2018] [facility] [id number] 2Result Comment: [10/09/2017] [facility] 26241-668-71 3Result Comment: [08/10/2017] [facility] [phone] 01 4Result Comment: [07/16/2017] [facility] Medications EpiPen 2-Bonifacio 0.3 mg injectable kit [...] 13:58:00 EDT, Aerosol, Route to Pharmacy Electronically, [id number], [facility], 155, cm, 04/11/19 8:37:00 EDT, [place]... Start Date: 12/01/19 Status: Ordered triamcinolone 55 mcg/inh nasal spray 2 sprays, Nares, Both, Daily, # 10 Gm, 2 Refills, Maintenance, 12/13/20 6:09:00 EDT, [place], [facility], 2 sprays Nares, Both Daily, 164, cm, 12/07/20 18:05:00 EDT, Height, 58, kg, 12/11/20 5:24:00 EDT, Dry Weight Start Date: 12/13/20 Status: Ordered Vitamin D3 1000 intl units oral tablet 1 tablet = 1,000 International_Units, By Mouth, Daily, # 90 tablet, 3 Refills, Maintenance, 12/24/20 14:57:00 EDT, Tablet, [facility]/pharmacy #2339, 164, cm, 12/24/20 14:35:00 EDT, Height, 58, kg, 215:24:00 EDT, Dry Weight Start Date: 12/24/20 Status: Ordered Xyzal 5 mg oral tablet 1 tablet = 5 mg, By Mouth, Daily in PM, # 30 tablet, 5 Refills, Maintenance, 11/20/20 9:28:00 EDT, Tablet, [facility]/pharmacy #2339, 1 [...] Effective Dates Health Status Clinical Service Informant Well adult exam Discharge Diagnosis 12/24/20 Asthma, moderate persistent Discharge Diagnosis 12/24/20 Urolithiasis Discharge Diagnosis 12/24/20 Personal history of kidney stones Discharge Diagnosis 12/24/20 Acid reflux Discharge Diagnosis 12/24/20 Adjustment disorder with anxiety Discharge Diagnosis 12/24/20 Vital Signs Most recent to oldest [Reference Range]: 1 Height 164 cm (12/24/20 2:35 PM) Weight 56.6 kg (12/24/20 2:35 PM) Oxygen Saturation [94-100 %] 98 % (12/24/20 2:35 PM) Pulse Rate [55-90 bpm] 76 bpm (12/24/20 2:35 PM) Body Mass Index [18.5-24.99] 21.04 (12/24/20 2:35 PM) Blood Pressure [90-138/55-84 mm Hg] 102/ 64mm Hg (12/24/20 2:35 PM) Temperature [96.8-100.4 DegF] 98.6 DegF (12/24/20 2:35 PM) Blood pressure sites Arm, right (12/24/20 2:35 PM) Temperature Route Oral (12/24/20 2:35 PM) Weight Obtained Via Standing scale (12/24/20 2:35 PM) Social History Social History Type Response Smoking Status Never smoker; Tobacc o user in household: No entered on: 07/16/17 Sex
--- OUTSIDE RECORDS SUMMARY | 2024-04-23 22:33 | XMS_ITS | Continuity of Care Document ---
Author Organization [facility] Cali Ramses lt Address [address] [place] [address]- Care Team Providers Care Photocopy Operator Name Role Phone Enrico SORENSON, Nannette Tellez Primary Care Physician [facility] Date[facility] 03[facility]27[facility]20 - 04/26/20 [facility] Adult [address] [place] [address]- [facility] Allergies, Adverse Reactions, Alerts Substance [...] acel(Tdap) 4 05/19/17 Recorded 1Result Comment: [05/07/2018] [facility] [address]-86 2Result Comment: [10/09/2017] [facility] 84817-835-42 3Result Comment: [08/10/2017] [facility] 0006 4943 01 4Result Comment: [07/16/2017] [facility] Medications Breo Ellipta 200 mcg-25 mcg/inh inhalation powder 0 Refills, 12/05/19 13:34:00 EDT Start Date: 12/05/19 Status: Ordered Depo-Provera Contraceptive 150 mg/mL intramuscular suspension 1 mL = 150 mg, Intramuscular, Every 3 months, [facility] [address]-4 Lot [id number] Exp Manuf: Dominique. 1 mL administered IM [...] Soft Stop, 04/06/20 10:40:00 EDT, Tablet, [facility]/pharmacy #2339, 155, cm, 04/11/19 8:37:00 [...] Refills, Maintenance, 10/10/19 16:17:00 EDT, Tablet, [facility]/pharmacy #2339, 155, cm, 04/11/19 8:37:00 [...] 13:58:00 EDT, Aerosol, Route to Pharmacy Electronically, [id number], [facility]/pharmacy #2339, 155, cm, 04/11/19 8:37:00 EDT, [place]... Start Date: 12/01/19 Status: Ordered triamcinolone 55 mcg/inh nasal spray 2 sprays, Nares, Both, Daily, # 10 Gm, 6 Refills, Maintenance, 12/05/19 14:15:00 EDT, [place], [facility], 2 sprays Nares, Both Daily, [...]
--- OUTSIDE RECORDS SUMMARY | 2024-04-23 22:33 | XMS_ITS | Continuity of Care Document ---
Author Organization [facility] ter Address [address] [place] [address]- Care Team Providers Care Membership Manager Name Role Phone Enrico SORENSON, Nannette Tellez Primary Care Physician [facility] Date(s): 02/03/20 - 02/04/[address] [address]- [facility] Discharge Disposition: A-D/C Home Attending Physician: Jessica Álvarez MD Admitting Physician: Jessica Álvarez MD Referring Physician: Not on Staff, Referring [...] 4 05/19/17 Recorded 1Result Comment: [05/07/2018] [facility] [address]-53 2Result Comment: [10/09/2017] [facility] 39843-092-24 3Result Comment: [08/10/2017] [facility] 0006 4943 01 4Result Comment: [07/16/2017] [facility] Medications Breo Ellipta 200 mcg-25 mcg/inh inhalation powder 0 Refills, 12/05/19 13:34:00 EDT Start Date: 12/05/19 Status: Ordered Depo-Provera Contraceptive 150 mg/mL intramuscular suspension 1 mL = 150 mg, Intramuscular, Every 3 months, [facility] [address]-7, Exp 09/2021, [facility]. 1 mL administered IM in left deltoid, pt tolerated well., # 1 mL, 6 Refills, Maintenance, 12/05/19 14:24:00 EDT, [place], [facility], 155, cm, 10... Start Date: 12/05/19 [...] 02/14/20 0:34:00 EDT, 02/04/20 0:34:00 EDT, [place], [facility], 155, cm, 04/11/19 8:37:00 EDT, [...] 13:58:00 EDT, Aerosol, Route to Pharmacy Electronically, [id number], [facility]/pharmacy #2339, 155, cm, 04/11/19 8:37:00 EDT, [place]... Start Date: 12/01/19 Status: Ordered triamcinolone 55 mcg/inh nasal spray 2 sprays, Nares, Both, Daily, # 10 Gm, 6 Refills, Maintenance, 12/05/19 14:15:00 EDT, [place], [facility]/pharmacy #2339, 2 sprays Nares, Both Daily, [...] tablet, 3 Refills, Maintenance, 12/05/19 13:57:00 EDT,Tablet, [facility]/pharmacy #2339, 1 tablet By Mouth Daily in PM, 155, cm, 04/11/19 8:37:00 EDT, Height, 55.8, kg, 09/15/18 18:40:00 EDT, Dry Weight Start Date: 12/05/19 Status: Ordered ZyrTEC 10 mg oral tablet 1 tablet = 10 mg, By Mouth, Daily, # 90 tablet, 3 Refills, Maintenance, 12/05/19 13:58:00 EDT, Tablet, [facility]/pharmacy #2339, 155, cm, 04/11/19 8:37:00 EDT, [...] tenosynovitis, bilateral(Confirmed) Active Posterior tibial tendonitis(Confirmed) Active Results Radiology Reports * Exam Date Time Procedure Performing Provider Status 02/03/20 11:59 PM Foot Min 3 Views Right Stacey Brown; Auth (Verified) Notes: (Foot Min 3 Views Right) Reason For Exam: anterior plantar surface pain;Pain RESULT: Foot Min 3 Views Right Foot Min 3 Views Right, 3 views Refer to EMR; Reason: Pain; anterior plantar surface pain; Clinical Question(s): Arthritis; Hx of Present Illness: pt thinks she may have been bitten by a bug and woke up with right foot pain ans swelling; Other Objective Findings: alert, color good, right foot plantar region redness and swollen area, no drainage or puncture area noted s20 alert, color good, right foot plantar region redness and COMPARISON: None. FINDINGS: No fractures or bone lesions. No arthritic changes. Normal soft tissues. IMPRESSION: Normal. WSN: [id number] Ordering Physician: Johana Ng Dictated By: Molina Alcantara MD Dictated Date/Time: 02/04/20 0:02 am Reviewed By: Molina Alcantara MD Signed By: Molina Alcantara MD Signed Date/Time: 02/04/20 0:02 am Transcribed By: KALEE Transcribed Date/Time: 02/04/20 0:01 am Vital Signs Most recent to oldest [Reference Range]: 1 2 Weight 58.9 kg (02/04/20 12:47 AM) 58.9 kg (02/03/20 10:12 PM) Oxygen Saturation [94-100 %] 98 % (02/04/20 12:47 AM) 100 % (02/03/20 10:12 PM) Pulse Rate [55-90 bpm] 87 bpm (02/04/20 12:47 AM) 93 bpm *H* (02/03/20 10:12 PM) Blood Pressure [90-138/55-84 mm Hg] 126/ 88mm Hg (02/04/20 12:47 AM) 131/70mm Hg (02/03/20 10:12 PM) Respiratory Rate [16-30 br/min] 20 br/mi n (02/04/20 12:47 AM) 16 br/min (02/03/20 10:12 PM) Temperature [96.8-100.4 DegF] 98.6 DegF (02/04/20 12:47 AM) 98.9 DegF (02/03/20 10:12 PM) Mode of Delivery (Oxygen) Room air (02/04/20 12:47 AM) Room air (02/03/20 10:12 PM) Blood pressure sites Arm, right (02/04/20 12:47 AM) Temperature Route Oral (02/04/20 12:47 AM) Oral (02/03/20 10:12 PM) Social History Social History Type Response Smoking Status Never smoker; Tobacc o user in household: No entered on: 07/16/17 Sex
--- OUTSIDE RECORDS SUMMARY | 2024-04-23 22:33 | XMS_ITS | Continuity of Care Document ---
Author Organization [facility] Dustin Ramses Address [address] [place] [address]- Care Team Providers Care Cafe Assistant Name Role Phone Enrico SORENSON, Nannette Tellez Primary Care Physician [facility] Date[facility]s): 07/28/19 - 11/13/19 [facility] Adult [address] [place] [address]- [facility] Attending Physician: Nannette Weston NP Referring Physician: [...] 4 05/19/17 Recorded 1Result Comment: [05/07/2018] [facility] [address]-54 2Result Comment: [10/09/2017] [facility] 15017-577-28 3Result Comment: [08/10/2017] [facility] 0006 4943 01 4Result Comment: [07/16/2017] [facility] Medications Depo-Provera Contraceptive 150 mg/mL intramuscular suspension 1 mL = 150 mg, Intramuscular, Every 3 months, Needs annual wellness visit for more refills. Pt willschedule appt today at check out. Admin 1 mL IM left deltoid, [facility] [id number], Exp 04/2021, Lot [id number] Jo. Pt tolerated well., # 1 mL,... [...] 3 Refills, Maintenance, 10/10/19 16:17:00 EDT, Tablet, [facility]/pharmacy #2339, 155, cm, 04/11/19 8:37:00 EDT, Height, 55.8, kg, 09/15/18 18:40:00 EDT, Dry Weight Start Date: 10/10/19 Stop Date: 10/04/20 Status: Ordered metroNIDAZOLE 0.75% topical gel 1 application, Topically, Daily at bedtime, # 45 Gm, 0 Refills, Maintenance, 10/12/19 15:29:00 EDT,[place], [facility]/pharmacy #2339, 1 application Topically Daily at [...] 9:10:44 EDT, Aerosol, Route to Pharmacy Electronically, [id number], [facility]/pharmacy #2339 Start Date: 11/24/18 Status: Ordered [...] 14:03:02 EDT, Aerosol, Route to Pharmacy Electronically, [id number], [facility]/pharmacy #2339 Start Date: 11/30/18 Status: Ordered triamcinolone 55 mcg/inh nasal spray 2 sprays, Nares, Both, Daily, # 10 Gm, 6 Refills, Maintenance, 02/21/19 13:16:11 EDT, [place], 2 sprays Nares, Both Daily Start Date: 02/21/19 Status: Ordered Vitamin D3 1000 intl units oral tablet 1 tablet = 1,000 International_Units, By Mouth, Daily, # 90 tablet, 3 Refills, Maintenance, 11/24/18 9:24:09 EDT, Tablet Start Date: 11/24/18 Status: Ordered ZyrTEC 10 mg oral tablet 1 tablet = 10 mg, By Mouth, Daily, # 90 tablet, 3 Refills, Maintenance, 07/28/19 10:09:00 EST, Tablet, [facility]/pharmacy #2339, 155, cm, 04/11/19 8:37:00 EDT, [...]
--- OUTSIDE RECORDS SUMMARY | 2024-04-23 22:33 | XMS_ITS | Continuity of Care Document ---
Author Organization [facility] Address [address] [place] [address]- Care Team Providers Care Contracts Advisor Name Role Phone Callum Duenas DO Primary Care Physician [phone] Encounter [facility] Date(s): 04/21/23 - 05/21/23 [facility] [address] [place], [place] [address] Attending Physician: Admtr, [id number] Admitting Physician: Admtr, [...] vaccine, inactivated 04/21/17 Chris rded SARS-CoV-2 mRNA ([id number]) vax 08/22/21 Recorded hepatitis B adult vaccine [...] diphtheria/tetanus/pertussis, acel(DTaP) 07/25/97 Recorded 1Result Comment: [05/07/2018] [facility] [address]-12 2Result Comment: [facility]# 34929-392-21 3Result Comment: [facility]# 60679-551-22 4Result Comment: [10/09/2017] [facility] 30343-671-46 5Result Comment: [08/10/2017] [facility] 0006 4943 01 6Result Comment: [07/16/2017] [facility] Medications Depo-Provera Contraceptive 150 mg/mL intramuscular suspension 1 mL = 150 mg, Intramuscular, Every 3 months, bring to clinic to administer, # 1 mL, 2 Refills, Maintenance, 10/11/22 14:49:00 EDT, Suspension, [facility]/pharmacy #2339, 164, cm, 04/16/22 9:16:00 [...] 0 Refills, Maintenance, 04/14/22 14:50:00 EDT, Tablet, [facility]/pharmacy #2339, 164, cm, 04/14/22 14:05:00 EDT, Height, 58, kg, 12/11/20 5:24:00 EDT, Dry Weight Start Date: 04/14/22 Stop Date: 07/13/22 Status: Ordered famotidine 40 mg oral tablet See Instructions, TAKE 1 TABLET BY MOUTH EVERYDAY AT BEDTIME, # 90 tablet, 0 Refills, Maintenance, 03/16/23 8:38:00 EDT, [facility] STORE [id number], 155, cm, 09/02/22 17:49:00 EST, Height Start Date: 03/16/23 Status: Ordered levocetirizine 5 mg oral tablet 1 tablet, By Mouth, Daily in PM, # 90 tablet, 3 Refills, Maintenance, 10/17/21 14:52:00 EDT, [facility]/pharmacy #2339, 1 tablet By Mouth Daily in PM, 164, cm, 10/17/21 14:30:00 EDT, Height, 58, kg, 12/11/20 5:24:00 EDT, Dry Weight Start Date: 10/17/21 Status: Ordered medroxyPROGESTERone 150 mg/mL intramuscular suspension = 150 mg, Intramuscular, Once, administered to left upper arm, IM, without incident lot [id number] exp 01/2024 [id number], 0 Refills, Maintenance, 01/31/22 11:17:00 EDT, Partial [...] 14:52:00 EDT, Aerosol, Route to Pharmacy Electronically, [id number], [facility]/pharmacy #2339, 164, cm, 10/17/21 14:30:00 [...] Gm, 2 Refills, Maintenance, 12/13/20 6:09:00 EDT, [place], [facility]/pharmacy #2339, 2 sprays Nares, Both [...] 0 Refills, Maintenance, 04/14/22 14:51:00 EDT, Tablet, [facility]/pharmacy #2339, 164, cm, 04/14/22 14:05:00 EDT, Height, 58, kg, :24:00 EDT, Dry Weight Start Date: 04/14/22 Stop Date: 07/13/22 Status: Ordered Vitamin D3 50,000 intl units oral capsule 1 capsule = 1,250 mcg, By Mouth, Every week, new start 05/14/22, # 9 capsule, 0 Refills, Maintenance, 05/13/22 20:19:00 EST, Caps[place], [facility], Partial fill upon patient request if the [...] Primary Care Member Role: PCP Address: Address: [address] [place] [address]- Care Team Related Persons Name: YOVANY BRICEÑO Address: home [address] [place] [address]
--- OUTSIDE RECORDS SUMMARY | 2024-04-23 22:33 | XMS_ITS | Continuity of Care Document ---
Author Organization [facility] Cali Ramses Address [address] [place] [address]- Care Team Providers Care Cash Applications Clerk Name Role Phone Enrico SORENSON, Nannette Tellez Primary Care Physician [phone] [facility] Date[facility]s): 09/23/21 - 10/23/21 [facility] Adult [address] [place] [address]- Allergies, Adverse Reactions, Alerts Substance Reaction Severity [...] 1Result Comment: [05/07/2018] [facility] [id number] 2Result Comment: [facility]# 65996-095-88 3Result Comment: [facility]# 96871-161-16 4Result Comment: [10/09/2017] [facility] 79444-370-16 5Result Comment: [08/10/2017] [facility] 0006 4943 01 6Result Comment: [07/16/2017] [facility] Medications Depo-Provera Contraceptive 150 mg/mL intramuscular suspension 1 mL = 150 mg, Intramuscular, Every 3 months, [facility] 31858-439-02 lot [id number] exp 08/2023 administered to left deltoid without incident, # 1 mL, 6 Refills, Maintenance, 07/23/21 16:38:00 EST, Suspension,[facility]/pharmacy #2339, 164, cm, 04/25/21 10:29:00 [...] 3 Refills, Maintenance, 10/10/19 16:17:00 EDT, Tablet, [facility]/pharmacy #2339, 155, cm, 04/11/19 8:37:00 EDT, Height, 55.8, kg, 09/15/18 18:40:00 EDT, Dry Weight Start Date: 10/10/19 Stop Date: 10/04/20 Status: Ordered levocetirizine 5 mg oral tablet 1 tablet, By Mouth, Daily in PM, # 90 tablet, 3 Refills, Maintenance, 10/17/21 14:52:00 EDT, [facility]/pharmacy #2339, 1 tablet By Mouth [...] 10/27/21 14:56:00 EDT, 10/17/21 14:56:00 EDT, Tablet, [facility]/pharmacy #2339, Partial fill upon patient request if the prescription is for a schedule II o... Start Date: 10/17/21 Stop Date: 10/27/21 Status: Ordered ProAir HFA 90 mcg/inh inhalation aerosol with adapter 2, puffs, Inhalation, Every 6 hours, PRN, # 1 each, Refills 3, Tot. Refills 3, Maintenance, 10/17/21 14:52:00 EDT, Aerosol, Route to Pharmacy Electronically, [id number], [facility]/pharmacy #2339, 164, cm, 10/17/21 14:30:00 [...] Gm, 2 Refills, Maintenance, 12/13/20 6:09:00 EDT, [place], [facility]/pharmacy #2339, 2 sprays Nares, Both [...]
--- OUTSIDE RECORDS SUMMARY | 2024-04-23 22:33 | XMS_ITS | Continuity of Care Document ---
Author Organization [facility] Cali Ramses Address [address] [place] [address]- Care Team Providers Care Sticker On Name Role Phone Nannette Weston NP Primary Care Physician [facility] [place] 01/11/20 - 01/18/20 [facility] Adult [address] [place] [address]- [facility] Encounter Diagnosis Patellofemoral disorder(Discharge Diagnosis) - 01/11/20 Asthma(Discharge Diagnosis) - 01/11/20 Vaginosis(Discharge Diagnosis) - 01/11/20 Leg cramping(Discharge Diagnosis) - 01/11/20 Attending Physician: Nannette Weston NP Allergies, Adverse [...] 4 05/19/17 Recorded 1Result Comment: [05/07/2018] [facility] [id number] 2Result Comment: [10/09/2017] [facility] 92220-659-57 3Result Comment: [08/10/2017] [facility] 0006 4943 01 4Result Comment: [07/16/2017] [facility] Medications Breo Ellipta 200 mcg-25 mcg/inh inhalation powder 0 Refills, 12/05/19 13:34:00 EDT Start Date: 12/05/19 Status: Ordered Depo-Provera Contraceptive 150 mg/mL intramuscular suspension 1 mL = 150 mg, Intramuscular, Every 3 months, [facility] [address]-5, Exp 09/2021, [facility]. 1 mL administered IM in left deltoid, pt tolerated well., # 1 mL, 6 Refills, Maintenance, 12/05/19 14:24:00 EDT, Suspension, [facility]/pharmacy #2339, 155, cm, 10... Start [...] 3 Refills, Maintenance, 10/10/19 16:17:00 EDT, Tablet, [facility]/pharmacy #2339, 155, cm, 04/11/19 8:37:00 EDT, Height, 55.8, kg, 09/15/18 18:40:00 EDT, Dry Weight Start Date: 10/10/19 Stop Date: 10/04/20 Status: Ordered metroNIDAZOLE 0.75% topical gel 1 application, Vaginally, 2 times a day, # 45 Gm, 0 Refills, Maintenance, 12/05/19 14:18:00 EDT, [facility]/pharmacy #2339, 1 application Vaginally 2 times [...] 13:58:00 EDT, Aerosol, Route to Pharmacy Electronically, [id number], [facility]/pharmacy #2339, 155, cm, 04/11/19 8:37:00 EDT, [place]... Start Date: 12/01/19 Status: Ordered triamcinolone 55 mcg/inh nasal spray 2 sprays, Nares, Both, Daily, # 10 Gm, 6 Refills, Maintenance, 12/05/19 14:15:00 EDT, [place], [facility]/pharmacy #2339, 2 sprays Nares, [...] tablet, 3 Refills, Maintenance, 12/05/19 13:57:00 EDT,Tablet, [facility]/pharmacy #2339, 1 tablet By Mouth Daily in PM, 155, cm, 04/11/19 8:37:00 EDT, Height, 55.8, kg, 09/15/18 18:40:00 EDT, Dry Weight Start Date: 12/05/19 Status: Ordered ZyrTEC 10 mg oral tablet 1 tablet = 10 mg, By Mouth, Daily, # 90 tablet, 3 Refills, Maintenance, 12/05/19 13:58:00 EDT, Tablet, [facility]/pharmacy #2339, 155, cm, 04/11/19 [...] Effective Dates Health Status Clinical Service Informant Patellofemoral disorder Discharge Diagnosis 01/11/20 Asthma Discharge Diagnosis 01/11/20 Vaginosis Discharge Diagnosis 01/11/20 Leg cramping Discharge Diagnosis 01/11/20 Social History Social History Type Response Smoking Status Never smoker; Tobacc o user in household: No entered on: 07/16/17 Sex
--- OUTSIDE RECORDS SUMMARY | 2024-04-23 22:33 | XMS_ITS | Continuity of Care Document ---
Author Organization [facility] Ramses lt Address [address] [place] [address]- Care Team Providers Care Turntable Man Name Role Phone Enrico SORENSON, Nannette Tellez Primary Care Physician [facility] Date(s): 12/24/20 - 02/27/21 [facility] Adult [address] [place] [address]- Attending Physician: Tati Okeefe NP Referring Physician: Nicolas Restrepo MD Allergies, [...] tetanus/diphtheria/pertussis, acel(Tdap) 6 05/19/17 Recorded 1Result Comment: [facility]# [id number] 2Result Comment: [facility]# 71534-421-11 3Result Comment: [10/09/2017] [facility] 07982-065-06 4Result Comment: [05/07/2018] [facility] [address]-08 5Result Comment: [08/10/2017] [facility] 0006 4943 01 6Result Comment: [07/16/2017] [facility] Medications EpiPen 2-Bonifacio 0.3 mg injectable kit = 0.3 mg, Intramuscular, Once, If case of allergic emergency., # 1 each, 1 Refills, Soft Stop, 12/24/20 14:57:00 EDT, [facility]/pharmacy #2339, 164, [...] 13:58:00 EDT, Aerosol, Route to Pharmacy Electronically, [id number], [facility]/pharmacy #2339, 155, cm, 04/11/19 8:37:00 EDT, [place]... Start Date: 12/01/19 Status: Ordered triamcinolone 55 mcg/inh nasal spray 2 sprays, Nares, Both, Daily, # 10 Gm, 2 Refills, Maintenance, 12/13/20 6:09:00 EDT, [place], [facility]/pharmacy #2339, 2 [...]
--- OUTSIDE RECORDS SUMMARY | 2024-04-23 22:33 | XMS_ITS | Continuity of Care Document ---
Author Organization [facility] Address [address] [place] [address]- Care Team Providers Care It Compliance Analyst Name Role Phone Callum Duenas DO Primary Care Physician [place] [facility] - 09/18/[address] [address]- Encounter Diagnosis Procedure and treatment not carried out, unspecified reason(Final) - Discharge Disposition: A-D/C Home Attending Physician: Callum Duensa DO Admitting Physician: Callum Duenas DO Referring Physician: Callum Duenas DO Allergies, Adverse Reactions, [...] vaccine, inactivated 04/21/17 Chris rded SARS-CoV-2 mRNA (uxooene-ggxr-ugqjo) vax 08/22/21 Recorded hepatitis B adult vaccine [...] 07/25/97 Recorded 1Result Comment: [05/07/2018] [facility] [id number] 2Result Comment: [facility]# [id number] 3Result Comment: [facility]# 18408-240-22 4Result Comment: [10/09/2017] [facility] [id number] 5Result Comment: [08/10/2017] [facility] [phone] 01 6Result Comment: [07/16/2017] [facility] Medications Depo-Provera Contraceptive 150 mg/mL intramuscular suspension 1 mL = 150 mg, Intramuscular, Every 3 months, bring to clinic to administer, # 1 mL, 2 Refills, Maintenance, 10/11/22 14:49:00 EDT, Suspension, [facility]/pharmacy #2339, 164, cm, 04/16/22 9:16:00 EDT, [...] 1 Refills, Soft Stop, 05/20/23 16:13:00 EST, [facility]/pharmacy #2339, 155, cm, 04/21/23 9:31:00 EDT, Height Start Date: 05/20/23 Status: Ordered famotidine 40 mg oral tablet See Instructions, TAKE 1 TABLET BY MOUTH EVERYDAY AT BEDTIME, # 90 tablet, 0 Refills, Maintenance, 06/16/23 9:19:00 EST, [facility]/pharmacy #2339, 155, cm, 04/21/23 9:31:00 EDT, Height Start Date: 06/16/23 Status: Ordered famotidine 40 mg oral tablet 1 tablet = 40 mg, By Mouth, Daily at bedtime, # 90 tablet, 0 Refills, Maintenance, 04/14/22 14:50:00 EDT, Tablet, [facility]/pharmacy #2339, 164, cm, 04/14/22 14:05:00 EDT, Height, 58, kg, 12/11/20 5:24:00 EDT, Dry Weight Start Date: 04/14/22 Stop Date: 07/13/22 Status: Ordered levocetirizine 5 mg oral tablet 1 tablet, By Mouth, Daily in PM, # 90 tablet, 3 Refills, Maintenance, 10/17/21 14:52:00 EDT, [facility]/pharmacy #2339, 1 tablet By Mouth Daily in PM, 164, cm, 10/17/21 14:30:00 EDT, Height, 58, kg, 12/11/20 5:24:00 EDT, Dry Weight Start Date: 10/17/21 Status: Ordered medroxyPROGESTERone 150 mg/mL intramuscular suspension = 150 mg, Intramuscular, Once, administered to left upper arm, IM, without incident lot [id number] exp 01/2024 [id number], 0 Refills, Maintenance, 01/31/22 11:17:00 EDT, Partial [...] 14:52:00 EDT, Aerosol, Route to Pharmacy Electronically, [id number], [facility]/pharmacy #2339, 164, cm, 10/17/21 14:30:00 EDT, [...] Gm, 2 Refills, Maintenance, 12/13/20 6:09:00 EDT, [place], [facility]/pharmacy #2339, 2 sprays Nares, Both Daily, [...] 0 Refills, Maintenance, 04/14/22 14:51:00 EDT, Tablet, [facility]/pharmacy #2339, 164, cm, 04/14/22 14:05:00 EDT, [...] Primary Care Member Role: PCP Address: Address: [address] [place] [address]- Care Team Related Persons Name: YOVANY BRICEÑO Address: home [address] [place] [address]
--- OUTSIDE RECORDS SUMMARY | 2024-04-23 22:33 | XMS_ITS | Continuity of Care Document ---
Author Organization [facility] Address [address] [place] [address]- Care Team Providers Care Solar Maintenance Technician Name Role Phone Enrico SORENSON, Nannette Tellez Primary Care Physician Encounter [facility] Date(s): 07/29/21 - 08/05/21 [facility] [address] [place] [address]- Attending Physician: Not on Staff, Attending MD [...] acel(Tdap) 6 05/19/17 Recorded 1Result Comment: [05/07/2018] [facility] [id number] 2Result Comment: [facility]# [id number] 3Result Comment: [facility]# [id number] 4Result Comment: [10/09/2017] [facility] 49796-353-95 5Result Comment: [08/10/2017] [facility] [phone] 01 6Result Comment: [07/16/2017] [facility] Medications Depo-Provera Contraceptive 150 mg/mL intramuscular suspension 1 mL = 150 mg, Intramuscular, Every 3 months, [facility] 73957-713-74 lot [id number] exp 08/2023 administered to left deltoid without incident, # 1 mL, 6 Refills, Maintenance, 07/23/21 16:38:00 EST, Suspension,[facility]/pharmacy #2339, 164, cm, 04/25/21 10:29:00 E... Start Date: 07/23/21 Status: Ordered EpiPen 2-Bonifacio 0.3 mg injectable kit = 0.3 mg, Intramuscular, Once, If case of allergic emergency., # 1 each, 1 Refills, Soft Stop, 12/24/20 14:57:00 EDT, [facility]/pharmacy #2339, 164, cm, 12/24/20 14:35:00 EDT, Height, 58, kg, 12/11/20 5:24:00 EDT, Dry Weight Start Date: 12/24/20 Status: Ordered famotidine 40 mg oral tablet 1 tablet = 40 mg, By Mouth, Daily at bedtime, # 90 tablet, 3 Refills, Maintenance, 10/10/19 16:17:00 EDT, Tablet, [facility]/pharmacy #2339, 155, cm, 04/11/19 8:37:00 EDT, Height, 55.8, kg, 09/15/18 18:40:00 EDT, Dry Weight Start Date: 10/10/19 Stop Date: 10/04/20 Status: Ordered levocetirizine 5 mg oral tablet 1 tablet, By Mouth, Daily in PM, # 90 tablet, 3 Refills, Maintenance, 07/19/21 12:44:00 EST, [facility]/pharmacy #2339, 1 tablet By Mouth Daily [...] montelukast 10 mg oral tablet Refills 0, 06/08/20 13:33:00 EDT Start Date: 12/05/19 Status: Ordered ProAir HFA 90 mcg/inh inhalation aerosol with adapter 2, puffs, Inhalation, Every 6 hours, PRN, # 1 each, Refills 2, Tot. Refills 2, Maintenance, 12/01/19 13:58:00 EDT, Aerosol, Route to Pharmacy Electronically, [id number], [facility]/pharmacy #2339, 155, cm, 04/11/19 8:37:00 EDT, [...] 2 Refills, Maintenance, 12/13/20 6:09:00 EDT, [place], [facility]/pharmacy #2339, 2 sprays Nares, Both Daily, 164, cm, 12/07/20 18:05:00 EDT, Height, 58, kg, 12/11/20 5:24:00 EDT, Dry Weight Start Date: 12/13/20 Status: Ordered Vitamin D3 1000 intl units oral tablet 1 tablet = 1,000 International_Units, By Mouth, Daily, # 90 tablet, 3 Refills, Maintenance, 04/25/21 10:47:00 EDT, Tablet, [facility]/pharmacy #2339, 164, cm, 04/25/21 10:29:00 EDT, [...]
--- OUTSIDE RECORDS SUMMARY | 2024-04-23 22:33 | XMS_ITS | Continuity of Care Document ---
Author Organization [facility] Address [address] [place] [address]- Care Team Providers Care Drop Crew Laborer Name Role Phone Nannette Weston NP Primary Care Physician Encounter [facility] [place] Date(s): 10/17/21 - 10/24/21 [facility] [address] [place] [address]- Encounter Diagnosis Asthma, moderate persistent(Discharge Diagnosis) - 10/17/21 Acid reflux(Discharge Diagnosis) - 10/17/21 Costochondritis(Discharge Diagnosis) - 10/17/21 Low back pain(Discharge Diagnosis) - 10/17/21 Grief(Discharge Diagnosis) - 10/17/21 Attending Physician: Nannette Weston NP Allergies, Adverse [...] acel(Tdap) 6 05/19/17 Recorded 1Result Comment: [05/07/2018] [facility] [id number] 2Result Comment: [facility]# 31086-800-12 3Result Comment: [facility]# 42037-666-57 4Result Comment: [10/09/2017] [facility] 74182-153-45 5Result Comment: [08/10/2017] [facility] 0006 4943 01 6Result Comment: [07/16/2017] [facility] Medications Depo-Provera Contraceptive 150 mg/mL intramuscular suspension 1 mL = 150 mg, Intramuscular, Every 3 months, [facility] 72114-725-19 lot [id number] exp 08/2023 administered to left deltoid without incident, # 1 mL, 6 Refills, Maintenance, 07/23/21 16:38:00 EST, Suspension,[facility]/pharmacy #2339, 164, cm, 04/25/21 10:29:00 E... Start Date: 07/23/21 Status: Ordered EpiPen 2-Bonifacio 0.3 mg injectable kit = 0.3 mg, Intramuscular, Once, If case of allergic emergency., # 1 each, 1 Refills, Soft Stop, 10/17/21 14:53:00 EDT, [facility]/pharmacy #2339, 164, cm, 10/17/21 14:30:00 EDT, Height, 58, kg, 12/11/20 5:24:00 EDT, Dry Weight Start Date: 10/17/21 Status: Ordered famotidine 40 mg oral tablet 1 tablet = 40 mg, By Mouth, Daily at bedtime, # 90 tablet, 3 Refills, Maintenance, 10/10/19 16:17:00 EDT, Tablet, [facility]/pharmacy #2339, 155, cm, 04/11/19 8:37:00 EDT, Height, [...] EDT, 10/17/21 14:56:00 EDT, Tablet, [facility]/pharmacy #2339, Partial fill upon patient request if the prescription is for a schedule II o... Start Date: 10/17/21 Stop Date: 10/27/21 Status: Ordered ProAir HFA 90 mcg/inh inhalation aerosol with adapter 2, puffs, Inhalation, Every 6 hours, PRN, # 1 each, Refills 3, Tot. Refills 3, Maintenance, 10/17/21 14:52:00 EDT, Aerosol, Route to Pharmacy Electronically, [id number], [facility]/pharmacy #2339, 164, cm, 10/17/21 14:30:00 EDT, Hei... [...] Gm, 2 Refills, Maintenance, 12/13/20 6:09:00 EDT, [place], [facility]/pharmacy #2339, 2 sprays Nares, Both Daily, 164, [...] Effective Dates Health Status Clinical Service Informant Asthma, moderate persistent Discharge Diagnosis 10/17/21 Acid reflux Discharge Diagnosis 10/17/21 Costochondritis Discharge Diagnosis 10/17/21 Low back pain Discharge Diagnosis 10/17/21 Grief Discharge Diagnosis 10/17/21 Vital Signs Most recent to oldest [Reference Range]: 1 Height 164 cm (10/17/21 2:30 PM) Weight 55 kg (10/17/21 2:30 PM) Oxygen Saturation [94-100 %] 97 % (10/17/21 2:30 PM) Pulse Rate [55-90 bpm] 82 bpm (10/17/21 2:30 PM) Body Mass Index [18.5-24.99] 20.45 (10/17/21 2:30 PM) Blood Pressure [90-138/55-84 mm Hg] 105/ 65mm Hg (10/17/21 2:30 PM) Respiratory Rate [16-30 br/min] 18 br/mi n (10/17/21 2:30 PM) Blood pressure sites Arm, right (10/17/21 2:30 PM) Weight Obtained Via Standing scale (10/17/21 2:30 PM) Social History Social History Type Response Smoking Status Never smoker; Tobacc o user in household: No entered on: 07/16/17 Sex
--- OUTSIDE RECORDS SUMMARY | 2024-04-23 22:33 | XMS_ITS | Continuity of Care Document ---
Author Organization [facility] Address [address] [place] [address]- Care Team Providers Care Sales Incentive Analyst Name Role Phone Enrico SORENSON, Nannette Tellez Primary Care Physician Encounter [facility] Date(s): 10/30/21 - 11/06/21 [facility] [address] [place] [address]- Attending Physician: Not on Staff, Attending MD [...] acel(Tdap) 6 05/19/17 Recorded 1Result Comment: [05/07/2018] [facility] [id number] 2Result Comment: [facility]# 61760-372-77 3Result Comment: [facility]# 35765-715-60 4Result Comment: [10/09/2017] [facility] 07622-388-84 5Result Comment: [08/10/2017] [facility] 0006 4943 01 6Result Comment: [07/16/2017] [facility] Medications Depo-Provera Contraceptive = 150 mg, Intramuscular, Once, Right Deltoid, 0 Refills, Maintenance, 10/30/21 10:51:00 EDT, Partial fill upon patient request if the prescription is for a schedule II opioid drug. Start Date: 10/30/21 Status: Ordered Depo-Provera Contraceptive 150 mg/mL intramuscular suspension 1 mL = 150 mg, Intramuscular, Every 3 months, [facility] 48765-255-43 lot [id number] exp 08/2023 administered to left deltoid without incident, # 1 mL, 6 Refills, Maintenance, 07/23/21 16:38:00 EST, Suspension,[facility]/pharmacy #2339, 164, cm, 04/25/21 10:29:00 E... Start [...] 14:52:00 EDT, Aerosol, Route to Pharmacy Electronically, [id number], [facility]/pharmacy #2339, 164, cm, 10/17/21 14:30:00 EDT, Hei... [...] Gm, 2 Refills, Maintenance, 12/13/20 6:09:00 EDT, [place], [facility]/pharmacy #2339, 2 sprays Nares, Both Daily, 164, cm, 12/07/20 18:05:00 EDT, Height, 58, kg, 12/11/20 5:24:00 EDT, Dry Weight Start Date: 12/13/20 Status: Ordered Vitamin D3 1000 intl units oral tablet 1 tablet = 1,000 International_Units, By Mouth, Daily, # 90 tablet, 3 Refills, Maintenance, 10/17/21 14:53:00 EDT, Tablet, [facility]/pharmacy #2339, 164, cm, 10/17/21 14:30:00 EDT, Height, [...]
--- OUTSIDE RECORDS SUMMARY | 2024-04-23 22:33 | XMS_ITS | Continuity of Care Document ---
Author Organization [facility] ter Address [address] [place] [address]- Care Team Providers Care Coil Machine Supervisor Name Role Phone Callum Duenas DO Primary Care Physician Encounter [facility] Date(s): 01/27/23 - 02/17/[address] [address] Attending Physician: Odalis cMwilliams Admitting Physician: Odalis Mcwilliams Referring Physician: Odalis Mcwilliams Allergies, Adverse Reactions, Alerts Substance Reaction Severity [...] vaccine, inactivated 04/21/17 Chris rded SARS-CoV-2 mRNA ([id number]-upjp-vvgfd) vax 08/22/21 Recorded hepatitis B adult vaccine [...] 1Result Comment: [05/07/2018] [facility] [address]-08 2Result Comment: [facility]# 68005-658-78 3Result Comment: [facility]# 32295-134-65 4Result Comment: [10/09/2017] [facility] 53249-770-43 5Result Comment: [08/10/2017] [facility] 0006 4943 01 6Result Comment: [07/16/2017] [facility] Medications Depo-Provera Contraceptive 150 mg/mL intramuscular suspension 1 mL = 150 mg, Intramuscular, Every 3 months, bring to clinic to administer, # 1 mL, 2 Refills, Maintenance, 10/11/22 14:49:00 EDT, [place]pension, [facility]/pharmacy #2339, 164, cm, 04/16/22 9:16:00 EDT, [...] tablet, 0 Refills, Maintenance, 06/16/23 9:19:00 EST, [facility]/pharmacy #2339, 155, cm, 04/21/23 9:31:00 EDT, Height Start Date: 06/16/23 Status: Ordered famotidine 40 mg oral tablet 1 tablet = 40 mg, By Mouth, Daily at bedtime, # 90 tablet, 0 Refills, Maintenance, 04/14/22 14:50:00 EDT, Tablet, [facility]/pharmacy #2339, 164, cm, 04/14/22 14:05:00 EDT, Height, 58, kg, 12/11/20 5:24:00 EDT, Dry Weight Start Date: 04/14/22 Stop Date: 07/13/22 Status: Ordered levocetirizine 5 mg oral tablet 1 tablet, By Mouth, Daily in PM, # 90 tablet, 3 Refills, Maintenance, 10/17/21 14:52:00 EDT, [facility]/pharmacy #2339, 1 tablet By Mouth Daily in PM, 164, cm, 10/17/21 14:30:00 EDT, Height, 58, kg, 12/11/20 5:24:00 EDT, Dry Weight Start Date: 10/17/21 Status: Ordered medroxyPROGESTERone 150 mg/mL intramuscular suspension = 150 mg, Intramuscular, Once, administered to left upper arm, IM, without incident lot [id number] exp 01/2024 [id number], 0 Refills, Maintenance, 01/31/22 11:17:00 EDT, Partial [...] 14:52:00 EDT, Aerosol, Route to Pharmacy Electronically, [id number], [facility]/pharmacy #2339, 164, cm, 10/17/21 14:30:00 EDT, [...] Gm, 2 Refills, Maintenance, 12/13/20 6:09:00 EDT, [place], [facility]/pharmacy #2339, 2 sprays [...] 0 Refills, Maintenance, 04/14/22 14:51:00 EDT, Tablet, [facility]/pharmacy #2339, 164, cm, 04/14/22 14:05:00 EDT, Height, 58, kg, :24:00 EDT, Dry Weight Start Date: 04/14/22 Stop Date: 07/13/22 Status: Ordered Vitamin D3 50,000 intl units oral capsule 1 capsule = 1,250 mcg, By Mouth, Every week, new start 05/14/22, # 9 capsule, 0 Refills, Maintenance, 05/13/22 20:19:00 EST, [place]aps[place], [facility], Partial fill upon patient request if the [...] Primary Care Member Role: PCP Address: Address: [address] [place] [address]- Care Team Related Persons Name: YOVANY BRICEÑO Address: home [address] [place] [address]
--- OUTSIDE RECORDS SUMMARY | 2024-04-23 22:33 | XMS_ITS | Continuity of Care Document ---
Author Organization [facility] Address [address] [place] [address]- Care Team Providers Care Division Director Name Role Phone Daiana BAILEY, Chacha Morrison Primary Care Physician Encounter [facility] Date(s): 07/04/22 - 08/03/22 [facility] [address] [place], [place] [address] Allergies, Adverse Reactions, Alerts Substance Reaction [...] vaccine, inactivated 04/21/17 Chris rded SARS-CoV-2 mRNA (ljodwxq-imem-gniup) vax 08/22/21 Recorded hepatitis B adult vaccine [...] diphtheria/tetanus/pertussis, acel(DTaP) 07/25/97 Recorded 1Result Comment: [05/07/2018] [facility] [id number] 2Result Comment: [facility]# 93525-603-89 3Result Comment: [facility]# 11702-894-06 4Result Comment: [10/09/2017] [facility] 26204-204-27 5Result Comment: [08/10/2017] [facility] 0006 4943 01 6Result Comment: [07/16/2017] [facility] Medications Depo-Provera Contraceptive 150 mg/mL intramuscular suspension 1 mL = 150 mg, Intramuscular, Every 3 months, bring to clinic to administer, # 1 mL, 2 Refills, Maintenance, 10/11/22 14:49:00 EDT, [place]pension, [facility]/pharmacy #2339, 164, cm, 04/16/22 9:16:00 EDT, Height, 58, kg, 12/11/20 5:24:00 EDT, Dry Weight Start Date: 10/11/22 Stop Date: 07/08/23 Status: Ordered Depo-Provera Contraceptive 150 mg/mL intramuscular suspension 1 mL = 150 mg, Intramuscular, Every 3 months, for 90 days, bring to clinic to administer Given in clinic after negative POC preg test Lot [id number] exp 07/[address] [facility] [id number] pt own med IM right [...] 1 Refills, Soft Stop, 10/17/21 14:53:00 EDT, [facility]/pharmacy #2339, 164, cm, 10/17/21 14:30:00 EDT, Height, 58, kg, 12/11/20 5:24:00 EDT, Dry Weight Start Date: 10/17/21 Status: Ordered famotidine 40 mg oral tablet 1 tablet = 40 mg, By Mouth, Daily at bedtime, # 90 tablet, 0 Refills, Maintenance, 04/14/22 14:50:00 EDT, Tablet, [facility]/pharmacy #2339, 164, cm, 04/14/22 14:05:00 EDT, Height, 58, kg, 12/11/20 5:24:00 EDT, Dry Weight Start Date: 04/14/22 Stop Date: 07/13/22 Status: Ordered levocetirizine 5 mg oral tablet 1 tablet, By Mouth, Daily in PM, # 90 tablet, 3 Refills, Maintenance, 10/17/21 14:52:00 EDT, [facility]/pharmacy #2339, 1 tablet By Mouth Daily in PM, 164, cm, 10/17/21 14:30:00 EDT, Height, 58, kg, 12/11/20 5:24:00 EDT, Dry Weight Start Date: 10/17/21 Status: Ordered medroxyPROGESTERone 150 mg/mL intramuscular suspension = 150 mg, Intramuscular, Once, administered to left upper arm, IM, without incident lot [id number] exp 01/2024 [id number], 0 Refills, Maintenance, 01/31/22 11:17:00 EDT, Partial [...] 14:52:00 EDT, Aerosol, Route to Pharmacy Electronically, [id number], [facility]/pharmacy #2339, 164, cm, 10/17/21 14:30:00 EDT, Hei... [...] Gm, 2 Refills, Maintenance, 12/13/20 6:09:00 EDT, [place], [facility]/pharmacy #2339, 2 sprays Nares, Both Daily, 164, cm, 12/07/20 18:05:00 EDT, Height, 58, kg, 12/11/20 5:24:00 EDT, Dry Weight Start Date: 12/13/20 Status: Ordered Vitamin D3 1000 intl units oral tablet 1 tablet = 1,000 International_Units, By Mouth, Daily, # 90 tablet, 0 Refills, Maintenance, 04/14/22 14:51:00 EDT, Tablet, [facility]/pharmacy #2339, 164, cm, 04/14/22 14:05:00 EDT, Height, [...] Personnel Name: Daiana BAILEY, Chacha Morrison Position: [facility] Primary Care Physician Member Role: PCP Address: Address: [address] [place] [address]- Care Team Related Persons Name: YOVANY BRICEÑO Address: home [address] [place] [address] [place] [id number]
--- OUTSIDE RECORDS SUMMARY | 2024-04-23 22:33 | XMS_ITS | Continuity of Care Document ---
Author Organization [facility] Address [address] [place] [address]- Care Team Providers Care Thermostat Maker Name Role Phone Callum Duenas DO Primary Care Physician [phone] Encounter [facility] Date(s): 07/28/23 - 08/04/23 [facility] [address] [place] [address]- Encounter Diagnosis Acute pharyngitis(Discharge Diagnosis) - 07/28/23 Attending Physician: Fariba Rosa MD Referring Physician: Callum Duenas DO Allergies, Adverse [...] vaccine, inactivated 04/21/17 Chris rded SARS-CoV-2 mRNA (vmcuflv-hoia-jiugf) vax 08/22/21 Recorded hepatitis B adult vaccine [...] diphtheria/tetanus/pertussis, acel(DTaP) 07/25/97 Recorded 1Result Comment: [05/07/2018] [facility] [id number] 2Result Comment: [facility]# [id number] 3Result Comment: [facility]# [id number] 4Result Comment: [10/09/2017] [facility] [id number] 5Result Comment: [08/10/2017] [facility] 0006 [id number] 01 6Result Comment: [07/16/2017] [facility] Medications Depo-Provera Contraceptive 150 mg/mL intramuscular suspension 1 mL = 150 mg, Intramuscular, Every 3 months, bring to clinic to administer, # 1 mL, 2 Refills, Maintenance, 10/11/22 14:49:00 EDT, Suspension, [facility]/pharmacy #[id number], 164, cm, 04/16/22 9:16:00 EDT, Height, [...] tablet, 0 Refills, Maintenance, 06/16/23 9:19:00 EST, [facility]/pharmacy #[id number], 155, cm, 04/21/23 9:31:00 EDT, Height Start Date: 06/16/23 Status: Ordered famotidine 40 mg oral tablet 1 tablet = 40 mg, By Mouth, Daily at bedtime, # 90 tablet, 0 Refills, Maintenance, 04/14/22 14:50:00 EDT, Tablet, [facility]/pharmacy #2339, 164, cm, 04/14/22 14:05:00 EDT, Height, 58, kg, 12/11/20 5:24:00 EDT, Dry Weight Start Date: 04/14/22 Stop Date: 07/13/22 Status: Ordered levocetirizine 5 mg oral tablet 1 tablet, By Mouth, Daily in PM, # 90 tablet, 3 Refills, Maintenance, 10/17/21 14:52:00 EDT, [facility]/pharmacy #[id number], 1 tablet By Mouth Daily in PM, 164, cm, 10/17/21 14:30:00 EDT, Height, 58, kg, 12/11/20 5:24:00 EDT, Dry Weight Start Date: 10/17/21 Status: Ordered medroxyPROGESTERone 150 mg/mL intramuscular suspension = 150 mg, Intramuscular, Once, administered to left upper arm, IM, without incident lot [id number] exp 01/2024 [id number], 0 Refills, Maintenance, 01/31/22 11:17:00 EDT, Partial [...] 14:52:00 EDT, Aerosol, Route to Pharmacy Electronically, [id number], [facility]/pharmacy #2339, 164, cm, 10/17/21 14:30:00 EDT, Hei... [...] Gm, 2 Refills, Maintenance, 12/13/20 6:09:00 EDT, [place], [facility]/pharmacy #2339, 2 sprays Nares, Both Daily, 164, [...] Maintenance, 04/14/22 14:51:00 EDT, Tablet, [facility]/pharmacy #[id number], 164, cm, 04/14/22 14:05:00 EDT, Height, 58, kg, :24:00 EDT, Dry Weight Start Date: 04/14/22 Stop Date: 07/13/22 Status: Ordered Vitamin D3 50,000 intl units oral capsule 1 capsule = 1,250 mcg, By Mouth, Every week, new start 05/14/22, # 9 capsule, 0 Refills, Maintenance, 05/13/22 20:19:00 EST, Capsule, [id number], Partial fill upon patient request if the [...] Effective Dates Health Status Clinical Service Informant Acute pharyngitis Discharge Diagnosis 07/28/23 Vital Signs Most recent to oldest [Reference Range]: 1 Height 155 cm (07/28/23 11:16 AM) Oxygen Saturation [94-100 %] 100 % (07/28/23 11:16 AM) Pulse Rate [55-90 bpm] 66 bpm (07/28/23 11:16 AM) Blood Pressure [90-138/55-84 mm Hg] 121/ 71mm Hg (07/28/23 11:16 AM) Respiratory Rate [16-30 br/min] 18 br/mi n (07/28/23 11:16 AM) Temperature [96.8-100.4 DegF] 97.7 DegF (07/28/23 11:16 AM) Mode of Delivery (Oxygen) Room air (07/28/23 11:16 AM) Blood pressure sites Arm, right (07/28/23 11:16 AM) Temperature Route Temporal (07/28/23 11:16 AM) Social History Social History Type Response Smoking Status Never smoker; Tobacc o user in household: No entered on: 07/16/17 Sex Note * Melita Davis: PERFORM, SIGN, VERIFY Event Display: Patient Education/Instruction Authored Date: [id number] [facility] *[facility] Clinical Summary Name WARNER ASH Age 32 Years 1990 PCP Callum Duenas DO PCP Visit Date 07/28/2023 09:36:00 Additional Instructions: Scheduled Appointments?? Future Appointments ?[facility] ?[address]??[place],??[place],??[address] ?Phone:??[phone]?Fax:??-- ?Appt. Date:??01/18/2024?10:00 AM ?Scheduled Provider:??[facility] 5 Follow-Up Instructions ?? Diagnosis Medications: Please continue your medications until treatment [...] left upper arm, IM, without incident lot [id number] exp 01/2024 [id number]. Next Dose: Montelukast (montelukast 10 mg oral [...] Orders ?No future orders Vital Signs Height Weight BMI Blood Pressure / Temperature Pulse Rate Respiratory Rate 02 Sat Mode of Delivery / You can now view a summary of your hospital visit from the comfort of your home through a free online portal called [employer]. [employer] is a website that allows you to securely view your medical information including discharge summary, medications and follow-up visits. ??You can alsosend a secure electronic message to your doctor???s office to request appointments, renew medications or just ask a question. You can enroll at [email or web address] or register during your next [...] primary care provider, you may find a [facility] provider by calling [facility] at [phone]. [facility], in keeping with [facility] guidance, no longer requires face masks [...] format to support your individualized medical care. * Melita Davis: PERFORM, SIGN, VERIFY Event Display: Patient Education/Instruction Authored Date: [id number] [facility] *[facility] Clinical Summary Name WARNER ASH Age 32 Years 1990 PCP Callum Duenas DO PCP Visit Date 07/28/2023 09:36:00 Additional Instructions: Scheduled Appointments?? Future Appointments ?[facility] ?[address],??[place],??[address] ?Phone:??[phone]?Fax:??-- ?Appt. Date:??01/18/2024?10:00 AM ?Scheduled Provider:??[facility] 5 Follow-Up Instructions ?? Diagnosis Medications: Please continue your medications until treatment [...] left upper arm, IM, without incident lot [id number] exp 01/2024 [id number]. Next Dose: Montelukast (montelukast 10 mg oral [...] Orders ?No future orders Vital Signs Height Weight BMI Blood Pressure / Temperature Pulse Rate Respiratory Rate 02 Sat Mode of Delivery / You can now view a summary of your hospital visit from the comfort of your home through a free online portal called [employer]. [employer] is a website that allows you to securely view your medical information including discharge summary, medications and follow-up visits. ??You can alsosend a secure electronic message to your doctor???s office to request appointments, renew medications or just ask a question. You can enroll at [email or web address] or register during your next office visit. [...] primary care provider, you may find a [facility] provider by calling [facility] at [phone]. [facility], in keeping with [facility] guidance, no longer requires face masks [...] Team Personnel Name: Callum Duenas DO Position: [facility] Physician - Primary Care Member Role: PCP Address: Address: [address] [place] [id number] [place] Care Team Related Persons Name: YOVANY BRICEÑO Address: home [address] [place] [address] [place] [id number]
--- OUTSIDE RECORDS SUMMARY | 2024-04-23 22:33 | XMS_ITS | Continuity of Care Document ---
Author Organization [facility] Address [address] [place] [address]- Care Team Providers Care Low Pressure Boiler Operator Name Role Phone Enrico SORENSON, Nannette Tellez Primary Care Physician Encounter [facility] Date(s): 01/29/22 - 02/28/22 [facility] [address] [place] [address]- Allergies, Adverse Reactions, Alerts Substance Reaction Severity [...] acel(Tdap) 6 05/19/17 Recorded 1Result Comment: [05/07/2018] [facility] [id number] 2Result Comment: [facility]# 17089-774-54 3Result Comment: [facility]# 88345-534-39 4Result Comment: [10/09/2017] [facility] 57775-086-48 5Result Comment: [08/10/2017] [facility] 0006 4943 01 6Result Comment: [07/16/2017] [facility] Medications Depo-Provera Contraceptive = 150 mg, Intramuscular, Once, Right Deltoid, 0 Refills, Maintenance, 10/30/21 10:51:00 EDT, Partial fill upon patient request if the prescription is for a schedule II opioid drug. Start Date: 10/30/21 Status: Ordered Depo-Provera Contraceptive 150 mg/mL intramuscular suspension 1 mL = 150 mg, Intramuscular, Every 3 months, [facility] 30764-722-86 lot [id number] exp 08/2023 administered to left deltoid without [...] left upper arm, IM, without incident lot [id number] exp 01/2024 [id number], 0 Refills, Maintenance, 01/31/22 11:17:00 EDT, Partial [...] 14:52:00 EDT, Aerosol, Route to Pharmacy Electronically, [id number], [facility]/pharmacy #2339, 164, cm, 10/17/21 14:30:00 [...] Gm, 2 Refills, Maintenance, 12/13/20 6:09:00 EDT, [place], [facility]/pharmacy #2339, 2 sprays Nares, Both [...] Team Personnel Name: Nannette Weston NP Address: [address] [place] [address]
--- OUTSIDE RECORDS SUMMARY | 2024-04-23 22:33 | XMS_ITS | Continuity of Care Document ---
Author Organization [facility] Address [address] [place] [address]- Care Team Providers Care Dough Maker Name Role Phone Daiana BAILEY, Chacha Morrison Primary Care Physician [facility]counter [facility] Date(s): 06/18/22 - 07/18/22 [facility] [address] [place] [address]- Allergies, Adverse Reactions, Alerts Substance Reaction Severity [...] vaccine, inactivated 04/21/17 Chris rded SARS-CoV-2 mRNA (lhqprtl-wnbe-rpsyw) vax 08/22/21 Recorded hepatitis B adult vaccine [...] diphtheria/tetanus/pertussis, acel(DTaP) 07/25/97 Recorded 1Result Comment: [05/07/2018] [facility] [id number] 2Result Comment: [facility]# [id number] 3Result Comment: [facility]# [id number] 4Result Comment: [10/09/2017] [facility] 17525-862-02 5Result Comment: [08/10/2017] [facility] 0006 4943 01 6Result Comment: [07/16/2017] [facility] Medications amoxicillin 500 mg oral capsule 2 capsule = 1,000 mg, By Mouth, 2 times a day, for 14 days, # 56 capsule, 0 Refills, Acute 07/30/2315:01:00 EST, 07/16/22 16:01:00 EST, [facility]/pharmacy #[id number], Partial fill upon patient request, 164, [...] clinic after negative POC preg test Lot [id number] exp 07/23 [facility] [id number] [phone] pt own med IM right [...] 1 Refills, Soft Stop, 10/17/21 14:53:00 EDT, [facility]/pharmacy #2339, 164, cm, 10/17/21 14:30:00 EDT, Height, 58, kg, 12/11/20 5:24:00 EDT, Dry Weight Start Date: 10/17/21 Status: Ordered famotidine 40 mg oral tablet 1 tablet = 40 mg, By Mouth, Daily at bedtime, # 90 tablet, 0 Refills, Maintenance, 04/14/22 14:50:00 EDT, Tablet, [facility]/pharmacy #2339, 164, cm, 04/14/22 14:05:00 EDT, Height, 58, kg, 12/11/20 5:24:00 EDT, Dry Weight Start Date: 04/14/22 Stop Date: 07/13/22 Status: Ordered levocetirizine 5 mg oral tablet 1 tablet, By Mouth, Daily in PM, # 90 tablet, 3 Refills, Maintenance, 10/17/21 14:52:00 EDT, [facility]/pharmacy #2339, 1 tablet By Mouth Daily in PM, 164, cm, 10/17/21 14:30:00 EDT, Height, 58, kg, 12/11/20 5:24:00 EDT, Dry Weight Start Date: 10/17/21 Status: Ordered medroxyPROGESTERone 150 mg/mL intramuscular suspension = 150 mg, Intramuscular, Once, administered to left upper arm, IM, without incident lot [id number] exp 01/2024 [id number], 0 Refills, Maintenance, 01/31/22 11:17:00 EDT, Partial [...] 14:52:00 EDT, Aerosol, Route to Pharmacy Electronically, [id number], [facility]/pharmacy #2339, 164, cm, 10/17/21 14:30:00 [...] Gm, 2 Refills, Maintenance, 12/13/20 6:09:00 EDT, [place], [facility]/pharmacy #2339, 2 sprays Nares, Both Daily, 164, cm, 12/07/20 18:05:00 EDT, Height, 58, kg, 12/11/20 5:24:00 EDT, Dry Weight Start Date: 12/13/20 Status: Ordered Vitamin D3 1000 intl units oral tablet 1 tablet = 1,000 International_Units, By Mouth, Daily, # 90 tablet, 0 Refills, Maintenance, 04/14/22 14:51:00 EDT, Tablet, [facility]/pharmacy #2339, 164, cm, 04/14/22 14:05:00 [...] Personnel Name: Daiana BAILEY, Chacha Morrison Position: S Primary Care Physician Member Role: PCP Address: Address: [address] [place] [address]- Care Team Related Persons Name: YOVANY BRICEÑO Address: home [address] [address] [place] [address]
--- OUTSIDE RECORDS SUMMARY | 2024-04-23 22:33 | XMS_ITS | Continuity of Care Document ---
Author Organization [facility] Address [address] [place] [address]- Care Team Providers Care Director Process Name Role Phone Nannette Weston NP Primary Care Physician Encounter [facility] Date(s): 08/15/20 - 08/22/20 [facility] [address] [place] [address]- Encounter Diagnosis Abdominal pain(Discharge Diagnosis) - 08/15/20 Attending Physician: Gracie Gamboa MD Referring Physician: Nannette Weston NP Allergies, [...] acel(Tdap) 4 05/19/17 Recorded 1Result Comment: [05/07/2018] [facility] [id number] 2Result Comment: [10/09/2017] [facility] 11990-459-06 3Result Comment: [08/10/2017] [facility] 0006 4943 01 4Result Comment: [07/16/2017] [facility] Medications Breo Ellipta 200 mcg-25 mcg/inh inhalation [...] Maintenance, 10/10/19 16:17:00 EDT, Tablet, [facility]/pharmacy #2339, 155, cm, 04/11/19 8:37:00 [...] 13:58:00 EDT, Aerosol, Route to Pharmacy Electronically, [id number], [facility]/pharmacy #2339, 155, cm, 04/11/19 8:37:00 EDT, [place]... Start Date: 12/01/19 Status: Ordered triamcinolone 55 mcg/inh nasal spray 2 sprays, Nares, Both, Daily, # 10 Gm, 6 Refills, Maintenance, 12/05/19 14:15:00 EDT, [place], [facility]/pharmacy #2339, 2 sprays Nares, Both [...] Posterior tibial tendonitis(Confirmed) Active 1[place], [place] Diagnosis Diagnosis Type Effective Dates Health Status Cl inical Service Informant Abdominal pain Discharge Diagnosis 08/15/20 Vital Signs Most recent to oldest [Reference Range]: 1 Height 155 cm (08/15/20 4:40 PM) Oxygen Saturation [94-100 %] 98 % (08/15/20 4:40 PM) Pulse Rate [55-90 bpm] 95 bpm *H* (08/15/20 4:40 PM) Blood Pressure [90-138/55-84 mm Hg] 129/ 81mm Hg (08/15/20 4:40 PM) Respiratory Rate [16-30 br/min] 20 br/mi n (08/15/20 4:40 PM) Temperature [96.8-100.4 DegF] 98.7 DegF (08/15/20 4:40 PM) Mode of Delivery (Oxygen) Room air (08/15/20 4:40 PM) Blood pressure sites Arm, right (08/15/20 4:40 PM) Temperature Route Temporal (08/15/20 4:40 PM) Social History Social History Type Response Smoking Status Never smoker; Tobacc o user in household: No entered on: 07/16/17 Sex
[2024-04-23 22:40] LABS: IDNOW Serial# 08D9AD1C; Strep A Nucleic Acid Negative (Negative)
--- NOTE | 2024-04-23 22:47 | ED.URI ---
HPI - URI/Sore Throat General Chief Complaint: Upper Respiratory Symptoms Stated Complaint: sore throat Time Seen by Provider: 04/23/24 22:38 Source: patient Mode of arrival: ambulatory Limitations: no limitations History of Present Illness ED Provider: TAMMY SAHU Narrative: 33 yo female with PMH of asthma here with c/o sore throat, dry cough, painful swallowing since both of her children are sick one has croup and one has URI. She denies fevers. No recent travel. MD elicited complaint: sore throat Onset (ago): day(s) (2) Consistency: intermittent Severity: moderate Description of mucous: clear Able to tolerate fluids by mouth: Yes Exacerbating factors: swallowing Relieving factors: nothing Context: sick contacts Associated symptoms: sore throat Treatments prior to arrival: none Related Data Previous Rx's ?Medication ?Instructions ?Recorded cyclobenzaprine 10 mg tablet 10 mg PO TID #10 tabs 01/02/21 naproxen 500 mg tablet (Naprosyn) 500 mg PO BID #20 tabs 01/02/21 prednisone 50 mg tablet 50 mg PO DAILY #5 tabs 06/02/21 Allergies Allergy/AdvReac Type Severity Reaction Status Date / Time shrimp [SHRIMP] Allergy Unknown HIVES Unverified 04/23/24 22:06 Review of Systems Review of Systems: Constitutional : No Fever, No Chills, No Fatigue ENT/Mouth : pos sore throat, No Rhinorrhea Eyes: No Eye Pain, No Swelling, No Redness Cardiovascular : No Chest Pain, No SOB, No Dyspnea on Exertion Respiratory : No Cough, No Sputum Gastrointestinal : No Nausea, No Vomiting, No Diarrhea, No abdominal Pain Genitourinary : No Dysuria, No Urinary Frequency, No Hematuria, Musculoskeletal : No joint pain, No Myalgias, No Joint Swelling Skin : No Skin Lesions, No rash Neuro : No Weakness, No Numbness, No Dizziness, no Headache All other systems reviewed and are negative PMFSH Past Medical History Attestation statement: The following information was validated with the patient. Source: old records reviewed Medical History Asthma Social History Social History Alcohol intake: current Alcohol intake frequency: holidays/special occasions only Patient Tobacco Use Status: Never used Tobacco Substance Use Type: Marijuana Advance Directives: No Advance Directives Information Provided: No Physical Exam Vital Signs: Vital Signs: Last Vital Signs Temp 98.4 F 04/23/24 22:05 Pulse 77 04/23/24 22:05 Resp 18 04/23/24 22:05 BP 117/80 04/23/24 22:05 Pulse Ox 98 04/23/24 22:05 O2 Del Method Room Air 04/23/24 22:05 BMI result Body Mass Index 20.4 Appearance: Alert. Oriented X3. No acute distress. Eyes: Pupils equal, round and reactive to light. ENT: Pharynx mild erythema no exudates uvula is midline there is mild swelling of the uvula but is it midline normal voice no drooling Neck: Normal inspection. Neck supple. CVS: Normal heart rate and rhythm. Pulses normal. Respiratory: No respiratory distress. Breath sounds normal. Abdomen: Soft and non-tender. Skin: Skin warm and dry. Normal skin color. Extremities: No lower extremity edema. Neuro: Oriented X 3. No motor deficit. No sensory deficit. 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 Likely viral given contact with children Differential Diagnosis Differential Diagnoses: The differential diagnosis associated with the presentation includes strep throat, viral syndrome Admission/Observation Consideration of admission/observation: Escalation of care including admission/observation considered not toxic, well hydrated stable for DC Lab Data [facility] Lab Attestation statement: I reviewed the patient's lab results. Labs: Lab Results 04/23/24 Range/Units 22:10 S. pyogenes GrpA RUDDY Negative (Negative) Prescription Management I considered prescription management with: Antibiotic and Other Discharge Plan Discharge Clinical Impression: Pharyngitis Qualifiers: Pharyngitis/tonsillitis etiology: unspecified etiology Qualified Code(s): J02.9 - Acute pharyngitis, unspecified Upper respiratory infection Qualifiers: URI type: acute pharyngitis Pharyngitis/tonsillitis etiology: unspecified etiology Qualified Code(s): J02.9 - Acute pharyngitis, unspecified Patient Disposition: Home, Self-Care Instructions: Pharyngitis (ED) Additional Instructions: negative strep test suspect upper respiratory infection and viral syndrome given steroid and motrin return for worsening symptoms, fevers, vomiting or any other concerns. Prescriptions: No Action cyclobenzaprine 10 mg tablet 10 mg PO TID Qty: 10 0RF naproxen [Naprosyn] 500 mg tablet 500 mg PO BID Qty: 20 0RF prednisone 50 mg tablet 50 mg PO DAILY Qty: 5 0RF Print Language: Lao
[2024-04-23] MEDS: dexAMETHasone sod phosphate 4 MG/ML VIAL 8 MG PO (23:20)
[2024-04-23] MEDS: Ibuprofen Oral Susp 200 MG/10 ML ORAL.SUSP 400 MG PO (23:21)
[2024-04-23 23:24] VITALS: BP 117/80; PULSE 77; RESP 18; TEMP 36.9; O2SAT 98
== END 2024-04-23 23:25 | disposition home or self-care (01) ==
PROVIDERS: Emergency Provider Emergency Medicine
DX: J06.9 Acute upper respiratory infection, unspecified (principal); J02.9 Acute pharyngitis, unspecified; J45.909 Unspecified asthma, uncomplicated
CPT/HCPCS: 87651; 99283; J1100